=== PATIENT | female | born 1965 | race Hispanic/Latino ===

== ENCOUNTER 2020-04-11 10:34 | Inpatient (IN) | payer OTHER ==
[2020-04-11] MEDS: Acetaminophen 650 MG Suppository PR PRN ×2 (11:30→20:15)
[2020-04-11] MEDS ORDERED: Electrolyte Replacement Protocol 1 EACH IVPB PRN (12:08)
[2020-04-11] MEDS ORDERED: Bisacodyl 10 MG SUPP PR PRN (12:08)
[2020-04-11] MEDS ORDERED: Ondansetron PF 4 MG/2 ML Vial IVP PRN (12:08)
[2020-04-11] MEDS ORDERED: HYDROcodone/Acetaminophen 5/325 mg Tablet PO PRN (12:24)
[2020-04-11] MEDS ORDERED: FLU VACC QS2020-21(6MOS UP)/PF 60 MCG/0.5 ML SYRINGE IM ONE (13:00)
[2020-04-11] MEDS: Sodium Chloride 0.9% 1,000 ML IV SCH ×2 (13:30→23:59)
[2020-04-11] MEDS: Morphine 2 MG/ML VIAL SLOW IVP PRN ×2 (13:31→18:43)
[2020-04-11 14:14] LABS: Calcium, Ionized (arterial) 1.15 mmol/L (1.12-1.30); Carboxyhemoglobin (COHb) 0.3 gm% (0.0-3.0); Hemoglobin (Hb) 10.1 g/dL (12.0-16.0); O2 Tension (PaO2), arterial 62.4 mmHg (80.0-100.0); Potassium - ABG Lab 3.1 mmol/L (3.70-5.30); Puncture Site LRA; RapidComm Collect By EA; pH, Arterial 7.42 (7.35-7.45)
[2020-04-11] MEDS ORDERED: Potassium Chloride 20 MEQ TAB PO SCH (14:30)
[2020-04-11] MEDS: Labetalol HCl 100 MG/20 ML VIAL SLOW IVP PRN (18:41)
[2020-04-11] MEDS: hydrALAZINE 20 MG/ML VIAL SLOW IVP PRN (18:42)
[2020-04-11] MEDS: Mometasone/Formoterol 60 PUFF AER INH SCH (19:00)
[2020-04-11] MEDS: Oseltamivir 75 MG CAP PO SCH (20:15)
[2020-04-11] MEDS: Lorazepam 0.5 MG TAB PO PRN ×2 (20:15→23:59)
[2020-04-11] MEDS: Enoxaparin Sodium 40 MG/0.4 ML SYRINGE SC SCH (20:15)
[2020-04-11] MEDS: Guaifenesin DM 100-10/5 ML UDCUP PO PRN ×2 (20:15→23:59)
[2020-04-11] MEDS ORDERED: Dexamethasone 4 mg/ml Vial SLOW IVP SCH (22:45)
[2020-04-12] MEDS: Morphine 2 MG/ML VIAL SLOW IVP PRN (00:01)
[2020-04-12] MEDS: Guaifenesin DM 100-10/5 ML UDCUP PO PRN ×2 (04:11→20:31)
[2020-04-12] MEDS: Acetaminophen 325 MG TAB PO PRN ×3 (04:12→20:31)
[2020-04-12 05:10] LABS: Anion Gap 14 mmol/L (10-20); BUN (Urea Nitrogen) 19 mg/dL (9.8-20.1); Calc. Creatinine Clearance 109 mL/min (70-130); Calcium 8.6 mg/dL (7.8-10.44); Carbon Dioxide 22 mmol/L (22-29); Chloride 105 mmol/L (98-107); Glucose 136 mg/dL (70-105); Potassium 4.2 mmol/L (3.5-5.1); Sodium 137 mmol/L (136-145)
[2020-04-12 05:20] LABS: #Basophils 0.1 10x3/uL (0.0-0.2); #Monocytes 0.4 10x3/uL (0.0-1.1); #Neutrophils 9.7 10x3/uL (1.5-8.4); %Basophils 0.6 % (0.0-2.0); %Lymphocytes 5.1 % (18.0-47.0); %Monocytes 3.3 % (0.0-10.0); %Neutrophils 88.9 % (40.0-75.0); Hemoglobin 9.6 g/dL (12.0-15.5); Mean Corpuscular HGB CONC 33.8 g/dL (32.0-36.0); Mean Corpuscular Hemoglobin 31.1 pg (27.0-33.0); Mean Corpuscular Volume 91.9 fl (81.6-98.3); Platelet Count 259 10x3/uL (150-450); RBC Distribution Width 17.4 % (11.5-14.5); Red Blood Cell (RBC) Count 3.09 10x6/uL (3.90-5.03); White Blood Cell (WBC) Count 10.9 10x3/uL (3.5-10.5)
[2020-04-12] MEDS: Mometasone/Formoterol 60 PUFF AER INH SCH ×2 (07:34→19:00)
[2020-04-12 08:10] LABS: Actual Bicarbonate (HCO3a) 21.8 mEq/L (22-28); Base Excess (BEa) -2.5 mEq/L (-2.0 to +3.0); CO2 Tension 35.7 mmHg (35.0-45.0); Calcium, Ionized (arterial) 1.17 mmol/L (1.12-1.30); Carboxyhemoglobin (COHb) 0.3 gm% (0.0-3.0); Hemoglobin (Hb) 10.4 g/dL (12.0-16.0); O2 Tension (PaO2), arterial 65.3 mmHg (80.0-100.0); Potassium - ABG Lab 4.1 mmol/L (3.70-5.30); Puncture Site LRA; RapidComm Collect By EA
[2020-04-12] MEDS: Ascorbic Acid 500 mg Chewable Tablet PO SCH (08:38)
[2020-04-12] MEDS: Enoxaparin Sodium 40 MG/0.4 ML SYRINGE SC SCH ×2 (08:38→20:31)
[2020-04-12] MEDS: Pantoprazole 40 MG GRANULES PACKET PO SCH (08:39)
[2020-04-12] MEDS: Lorazepam 0.5 MG TAB PO PRN ×2 (08:39→20:33)
[2020-04-12] MEDS: Dexamethasone 20 MG/5 ML VIAL SLOW IVP SCH (08:39)
[2020-04-12] MEDS: Azithromycin 500 MG in Sodium Chloride 0.9% 250 ML 250 ML IVPB SCH (08:40)
[2020-04-12] MEDS: Cholecalciferol (Vitamin D3) 400 UNITS TAB PO SCH (08:41)
[2020-04-12] MEDS: Zinc Gluconate 50 MG TAB PO SCH (08:44)
[2020-04-12] MEDS: Calcium Carbonate 600 MG TAB PO SCH (11:59)
[2020-04-12] MEDS: Vitamin E 400 UNITS CAP PO SCH (12:01)
[2020-04-12] MEDS: cefTRIAXone\\ROCEPHIN 2 GM in Sodium Chloride 0.9% 100 ML IVPB SCH (12:23)
[2020-04-12] MEDS: Sodium Chloride 0.9% 1,000 ML IV SCH (20:33)
[2020-04-13] MEDS: Guaifenesin DM 100-10/5 ML UDCUP PO PRN ×3 (01:23→19:46)
[2020-04-13 03:34] LABS: #Basophils 0.1 10x3/uL (0.0-0.2); #Monocytes 0.6 10x3/uL (0.0-1.1); #Neutrophils 14.7 10x3/uL (1.5-8.4); %Basophils 0.3 % (0.0-2.0); %Lymphocytes 4.1 % (18.0-47.0); %Monocytes 3.7 % (0.0-10.0); %Neutrophils 89.2 % (40.0-75.0); Hemoglobin 9.6 g/dL (12.0-15.5); Mean Corpuscular HGB CONC 32.3 g/dL (32.0-36.0); Mean Corpuscular Hemoglobin 30.3 pg (27.0-33.0); Mean Corpuscular Volume 93.7 fl (81.6-98.3); Mean Platelet Volume 9.5 fl (7.4-10.4); Platelet Count 287 10x3/uL (150-450); RBC Distribution Width 17.4 % (11.5-14.5); Red Blood Cell (RBC) Count 3.17 10x6/uL (3.90-5.03); White Blood Cell (WBC) Count 16.5 10x3/uL (3.5-10.5)
[2020-04-13 03:39] LABS: Lactic Acid 1.3 mmol/L (0.5-2.2)
[2020-04-13 03:43] LABS: Anion Gap 14 mmol/L (10-20); BUN (Urea Nitrogen) 24 mg/dL (9.8-20.1); Calc. Creatinine Clearance 124 mL/min (70-130); Calcium 8.7 mg/dL (7.8-10.44); Carbon Dioxide 21 mmol/L (22-29); Chloride 109 mmol/L (98-107); Glucose 131 mg/dL (70-105); Potassium 3.7 mmol/L (3.5-5.1); Sodium 140 mmol/L (136-145)
[2020-04-13] MEDS: Lorazepam 0.5 MG TAB PO PRN ×2 (07:30→19:46)
[2020-04-13 07:44] LABS: Actual Bicarbonate (HCO3a) 20.9 mEq/L (22-28); Base Excess (BEa) -3.1 mEq/L (-2.0 to +3.0); CO2 Tension 34.2 mmHg (35.0-45.0); Carboxyhemoglobin (COHb) 0.3 gm% (0.0-3.0); Hemoglobin (Hb) 11.4 g/dL (12.0-16.0); O2 Tension (PaO2), arterial 119.5 mmHg (80.0-100.0); Potassium - ABG Lab 3.6 mmol/L (3.70-5.30); Puncture Site RRA; pH, Arterial 7.41 (7.35-7.45)
[2020-04-13] MEDS: Mometasone/Formoterol 60 PUFF AER INH SCH ×2 (07:56→20:01)
[2020-04-13] MEDS ORDERED: Sodium Chloride 0.9% 100 ML ONE (09:11)
[2020-04-13] MEDS: Cholecalciferol (Vitamin D3) 400 UNITS TAB PO SCH (09:17)
[2020-04-13] MEDS: Zinc Gluconate 50 MG TAB PO SCH (09:17)
[2020-04-13] MEDS: cefTRIAXone\\ROCEPHIN 2 GM in Sodium Chloride 0.9% 100 ML IVPB SCH (09:17)
[2020-04-13] MEDS: Pantoprazole 40 MG GRANULES PACKET PO SCH (09:17)
[2020-04-13] MEDS: Ascorbic Acid 500 mg Chewable Tablet PO SCH (09:17)
[2020-04-13] MEDS: Enoxaparin Sodium 40 MG/0.4 ML SYRINGE SC SCH ×2 (09:17→19:46)
[2020-04-13] MEDS: Vitamin E 400 UNITS CAP PO SCH (09:19)
[2020-04-13] MEDS: Calcium Carbonate 600 MG TAB PO SCH (09:19)
[2020-04-13] MEDS: Dexamethasone 20 MG/5 ML VIAL SLOW IVP SCH (09:20)
[2020-04-13] MEDS: Azithromycin 500 MG in Sodium Chloride 0.9% 250 ML 250 ML IVPB SCH (09:21)
[2020-04-13] MEDS: Morphine 2 MG/ML VIAL SLOW IVP PRN (10:05)
[2020-04-13] MEDS: Sodium Chloride 0.9% 1,000 ML IV SCH (19:52)
[2020-04-14] MEDS: Guaifenesin DM 100-10/5 ML UDCUP PO PRN ×2 (00:56→04:44)
[2020-04-14] MEDS: Lorazepam 0.5 MG TAB PO PRN ×3 (00:56→08:46)
[2020-04-14] MEDS: Morphine 2 MG/ML VIAL SLOW IVP PRN ×2 (00:56→07:59)
[2020-04-14] MEDS: Mometasone/Formoterol 60 PUFF AER INH SCH ×2 (08:00→19:24)
[2020-04-14] MEDS: Azithromycin 500 MG in Sodium Chloride 0.9% 250 ML 250 ML IVPB SCH ×2 (08:05→08:07)
[2020-04-14 08:49] LABS: #Basophils 0.1 10x3/uL (0.0-0.2); #Monocytes 0.6 10x3/uL (0.0-1.1); %Basophils 0.3 % (0.0-2.0); %Monocytes 3.8 % (0.0-10.0); %Neutrophils 86.5 % (40.0-75.0); Hemoglobin 10.1 g/dL (12.0-15.5); Mean Corpuscular HGB CONC 33.1 g/dL (32.0-36.0); Mean Corpuscular Volume 93.6 fl (81.6-98.3); Mean Platelet Volume 9.8 fl (7.4-10.4); Platelet Count 315 10x3/uL (150-450); RBC Distribution Width 17.4 % (11.5-14.5); Red Blood Cell (RBC) Count 3.26 10x6/uL (3.90-5.03); White Blood Cell (WBC) Count 15.1 10x3/uL (3.5-10.5)
[2020-04-14 09:03] LABS: Anion Gap 19 mmol/L (10-20); BUN (Urea Nitrogen) 21 mg/dL (9.8-20.1); Calc. Creatinine Clearance 140 mL/min (70-130); Calcium 9.2 mg/dL (7.8-10.44); Carbon Dioxide 21 mmol/L (22-29); Chloride 107 mmol/L (98-107); Glucose 89 mg/dL (70-105); Potassium 3.5 mmol/L (3.5-5.1); Sodium 143 mmol/L (136-145)
[2020-04-14] MEDS: Enoxaparin Sodium 40 MG/0.4 ML SYRINGE SC SCH ×2 (09:05→21:11)
[2020-04-14] MEDS: Dexamethasone 20 MG/5 ML VIAL SLOW IVP SCH (09:05)
[2020-04-14] MEDS: cefTRIAXone\\ROCEPHIN 2 GM in Sodium Chloride 0.9% 100 ML IVPB SCH (09:06)
[2020-04-14 09:39] LABS: Actual Bicarbonate (HCO3a) 22.6 mEq/L (22-28); Base Excess (BEa) -1.1 mEq/L (-2.0 to +3.0); CO2 Tension 33.8 mmHg (35.0-45.0); Calcium, Ionized (arterial) 1.16 mmol/L (1.12-1.30); Carboxyhemoglobin (COHb) 0.3 gm% (0.0-3.0); Hemoglobin (Hb) 10.3 g/dL (12.0-16.0); O2 Tension (PaO2), arterial 67.5 mmHg (80.0-100.0); Potassium - ABG Lab 3.3 mmol/L (3.70-5.30); Puncture Site RRA; pH, Arterial 7.44 (7.35-7.45)
[2020-04-14] MEDS ORDERED: Dexmedetomidine In 0.9 % NaCl 400 MCG in Premix Bag 1 BAG IVPB SCH (09:45)
[2020-04-14] MEDS ORDERED: Propofol 1,000 MG/100 ML VIAL IV PRN (10:23)
[2020-04-14] MEDS ORDERED: Morphine 2 MG/ML VIAL SLOW IVP PRN (10:30)
[2020-04-14] MEDS ORDERED: Lorazepam 2 MG/ML VIAL SLOW IVP PRN (10:30)
[2020-04-14] MEDS ORDERED: Propofol BOLUS 1,000 MG/100 ML VIAL IV PRN (10:30)
[2020-04-14] MEDS ORDERED: Fentanyl BOLUS 250 ML IVPB PRN (10:30)
[2020-04-14] MEDS ORDERED: DISCONTINUE PREVIOUS NARCOTIC PAIN MEDICATIONS AND BENZODIAZEPINES FS SCH (10:30)
[2020-04-14] MEDS ORDERED: Ventilator Sedation Protocol 1 EACH FS PRN (10:30)
[2020-04-14] MEDS: Propofol 1,000 MG/100 ML VIAL IV PRN ×4 (10:57→21:10)
[2020-04-14] MEDS ORDERED: Potassium Chloride 20 MEQ TAB PO SCH (11:30)
[2020-04-14] MEDS: Fentanyl CADD 100 ML IV SCH (11:43)
[2020-04-14] MEDS: Sodium Chloride 0.9% 1,000 ML IV SCH ×3 (11:58→21:11)
[2020-04-14] MEDS: Pantoprazole 40 MG GRANULES PACKET PO SCH ×2 (12:14→13:50)
[2020-04-14] MEDS: Calcium Carbonate 600 MG TAB PO SCH (12:14)
[2020-04-14] MEDS: Cholecalciferol (Vitamin D3) 400 UNITS TAB PO SCH ×2 (12:14→13:48)
[2020-04-14] MEDS: Ascorbic Acid 500 mg Chewable Tablet PO SCH ×2 (12:14→13:43)
[2020-04-14] MEDS: Zinc Gluconate 50 MG TAB PO SCH ×2 (12:15→13:52)
[2020-04-14 12:27] LABS: Actual Bicarbonate (HCO3a) 23.2 mEq/L (22-28); Base Excess (BEa) -2.1 mEq/L (-2.0 to +3.0); CO2 Tension 41.9 mmHg (35.0-45.0); Calcium, Ionized (arterial) 1.15 mmol/L (1.12-1.30); Carboxyhemoglobin (COHb) 0.3 gm% (0.0-3.0); Hemoglobin (Hb) 10.3 g/dL (12.0-16.0); O2 Tension (PaO2), arterial 108.9 mmHg (80.0-100.0); Potassium - ABG Lab 3.5 mmol/L (3.70-5.30); Puncture Site RRA; pH, Arterial 7.36 (7.35-7.45)
[2020-04-14] MEDS ORDERED: Vecuronium 10 MG VIAL IV SCH ×2 (13:30→13:45)
[2020-04-14] MEDS ORDERED: Midazolam HCl 5 mg/5 ml Vial SLOW IVP SCH (13:45)
[2020-04-14] MEDS: Vecuronium Bromide 50 MG in Sodium Chloride 0.9% 250 ML 250 ML IV SCH ×2 (13:54→20:10)
[2020-04-15 04:47] LABS: Anion Gap 16 mmol/L (10-20); BUN (Urea Nitrogen) 24 mg/dL (9.8-20.1); Calc. Creatinine Clearance 120 mL/min (70-130); Carbon Dioxide 18 mmol/L (22-29); Chloride 111 mmol/L (98-107); Glucose 96 mg/dL (70-105); Potassium 4.4 mmol/L (3.5-5.1); Sodium 141 mmol/L (136-145)
[2020-04-15 04:59] LABS: #Basophils 0.1 10x3/uL (0.0-0.2); #Monocytes 0.4 10x3/uL (0.0-1.1); #Neutrophils 10.2 10x3/uL (1.5-8.4); %Basophils 0.4 % (0.0-2.0); %Eosinophils 0.1 % (0.0-6.0); %Lymphocytes 8.6 % (18.0-47.0); %Monocytes 3.5 % (0.0-10.0); %Neutrophils 84.3 % (40.0-75.0); Hemoglobin 9.1 g/dL (12.0-15.5); Mean Corpuscular HGB CONC 31.7 g/dL (32.0-36.0); Mean Corpuscular Hemoglobin 31.1 pg (27.0-33.0); Mean Platelet Volume 10.2 fl (7.4-10.4); Platelet Count 219 10x3/uL (150-450); Red Blood Cell (RBC) Count 2.93 10x6/uL (3.90-5.03); White Blood Cell (WBC) Count 12.1 10x3/uL (3.5-10.5)
[2020-04-15] MEDS: Propofol 1,000 MG/100 ML VIAL IV PRN ×3 (06:14→21:50)
[2020-04-15] MEDS: Labetalol HCl 100 MG/20 ML VIAL SLOW IVP PRN (07:30)
[2020-04-15] MEDS: Vecuronium Bromide 50 MG in Sodium Chloride 0.9% 250 ML 250 ML IV SCH ×2 (09:13→18:59)
[2020-04-15 09:26] LABS: Actual Bicarbonate (HCO3a) 21.6 mEq/L (22-28); Base Excess (BEa) -6.4 mEq/L (-2.0 to +3.0); Calcium, Ionized (arterial) 1.21 mmol/L (1.12-1.30); Carboxyhemoglobin (COHb) 0.3 gm% (0.0-3.0); Hemoglobin (Hb) 10.3 g/dL (12.0-16.0); O2 Tension (PaO2), arterial 90.2 mmHg (80.0-100.0); Potassium - ABG Lab 4.1 mmol/L (3.70-5.30); Puncture Site LBA; pH, Arterial 7.21 (7.35-7.45)
[2020-04-15] MEDS: Pantoprazole 40 MG GRANULES PACKET PO SCH (09:44)
[2020-04-15] MEDS: Cholecalciferol (Vitamin D3) 400 UNITS TAB PO SCH (09:44)
[2020-04-15] MEDS: Calcium Carbonate 600 MG TAB PO SCH (09:44)
[2020-04-15] MEDS: Ascorbic Acid 500 mg Chewable Tablet PO SCH (09:44)
[2020-04-15] MEDS: Zinc Gluconate 50 MG TAB PO SCH (09:44)
[2020-04-15] MEDS: Enoxaparin Sodium 40 MG/0.4 ML SYRINGE SC SCH (09:45)
[2020-04-15] MEDS: Vitamin E 400 UNITS CAP PO SCH (09:45)
[2020-04-15] MEDS: Dexamethasone 20 MG/5 ML VIAL SLOW IVP SCH ×2 (09:45→20:50)
[2020-04-15] MEDS: cefTRIAXone\\ROCEPHIN 2 GM in Sodium Chloride 0.9% 100 ML IVPB SCH (09:45)
[2020-04-15] MEDS: Mometasone/Formoterol 60 PUFF AER INH SCH ×2 (09:48→20:00)
[2020-04-15] MEDS ORDERED: Enoxaparin Sodium 40 MG/0.4 ML SYRINGE SC SCH (10:30)
[2020-04-15] MEDS ORDERED: Sodium Bicarbonate 2.5 MEQ/5 ML VIAL ONE (10:37)
[2020-04-15] MEDS ORDERED: Lidocaine 1% PF 5 ML VIAL ONE (10:38)
[2020-04-15] MEDS ORDERED: Propofol 1,000 MG/100 ML VIAL IV ONE (11:19)
[2020-04-15] MEDS ORDERED: Fentanyl CADD 100 ML ONE (11:19)
[2020-04-15] MEDS: Sodium Chloride 0.9% 1,000 ML IV SCH ×2 (16:00→19:55)
[2020-04-15] MEDS: Enoxaparin Sodium 100 MG/ML SYRINGE SC SCH (20:51)
[2020-04-16] MEDS: Sodium Chloride 0.9% 1,000 ML IV SCH ×3 (01:23→22:20)
[2020-04-16] MEDS: Propofol 1,000 MG/100 ML VIAL IV PRN ×5 (03:18→22:20)
[2020-04-16 04:16] LABS: Hemoglobin 8.5 g/dL (12.0-15.5); Mean Corpuscular HGB CONC 31.4 g/dL (32.0-36.0); Mean Corpuscular Hemoglobin 30.5 pg (27.0-33.0); Mean Corpuscular Volume 97.1 fl (81.6-98.3); Platelet Count 208 10x3/uL (150-450); RBC Distribution Width 17.9 % (11.5-14.5); Red Blood Cell (RBC) Count 2.79 10x6/uL (3.90-5.03)
[2020-04-16 04:28] LABS: Anion Gap 10 mmol/L (10-20); BUN (Urea Nitrogen) 17 mg/dL (9.8-20.1); Calc. Creatinine Clearance 146 mL/min (70-130); Calcium 8.3 mg/dL (7.8-10.44); Carbon Dioxide 26 mmol/L (22-29); Chloride 109 mmol/L (98-107); Glucose 129 mg/dL (70-105); Potassium 4.4 mmol/L (3.5-5.1); Sodium 141 mmol/L (136-145)
[2020-04-16 06:37] LABS: Band 8 % (5-11); Lymphocytes 2 % (21-51); Monocytes 7 % (0-10); Myelocyte 3 % (0-0); Neutrophil 80 % (42-75); Nucleated RBC 1 % (0)
[2020-04-16 06:40] LABS: Anisocytosis SLIGHT = 6-15 cells (100X) (0-5/hpf); Elliptocytes SLIGHT = 2-5 cells (100X) (0-1/hpf); Microcytosis SLIGHT = 6-15 cells (100X) (0-5/hpf); Ovalocytes SLIGHT = 2-5 cells (100X) (0-1/hpf); Poikilocytosis SLIGHT = 6-15 cells (100X) (0-5/hpf)
[2020-04-16 06:41] LABS: Platelet Morphology Comment Appears Adequate
[2020-04-16 06:42] LABS: Large Platelets MODERATE
[2020-04-16 06:43] LABS: MDiff Complete? YES; Manual Diff?? YES
[2020-04-16] MEDS: Mometasone/Formoterol 60 PUFF AER INH SCH ×2 (07:37→20:04)
[2020-04-16] MEDS: Vitamin E 400 UNITS CAP PO SCH (07:56)
[2020-04-16] MEDS: Azithromycin 500 MG in Sodium Chloride 0.9% 250 ML 250 ML IVPB SCH (07:56)
[2020-04-16] MEDS: Cholecalciferol (Vitamin D3) 400 UNITS TAB PO SCH (07:57)
[2020-04-16] MEDS: cefTRIAXone\\ROCEPHIN 2 GM in Sodium Chloride 0.9% 100 ML IVPB SCH (07:58)
[2020-04-16] MEDS: Dexamethasone 20 MG/5 ML VIAL SLOW IVP SCH ×2 (07:58→20:31)
[2020-04-16] MEDS: Calcium Carbonate 600 MG TAB PO SCH ×2 (07:59→08:00)
[2020-04-16] MEDS: Ascorbic Acid 500 mg Chewable Tablet PO SCH (07:59)
[2020-04-16] MEDS: Pantoprazole 40 MG GRANULES PACKET PO SCH (08:00)
[2020-04-16] MEDS: Enoxaparin Sodium 100 MG/ML SYRINGE SC SCH ×2 (08:00→20:31)
[2020-04-16] MEDS: Zinc Gluconate 50 MG TAB PO SCH (08:01)
[2020-04-16] MEDS ORDERED: Metoprolol Tartrate 25 MG TAB PO SCH (11:30)
[2020-04-16] MEDS: Vecuronium Bromide 50 MG in Sodium Chloride 0.9% 250 ML 250 ML IV SCH (14:30)
[2020-04-16 16:03] LABS: Actual Bicarbonate (HCO3a) 26.4 mEq/L (22-28); Base Excess (BEa) 0.1 mEq/L (-2.0 to +3.0); CO2 Tension 51.6 mmHg (35.0-45.0); Calcium, Ionized (arterial) 1.22 mmol/L (1.12-1.30); Carboxyhemoglobin (COHb) 0.3 gm% (0.0-3.0); Hemoglobin (Hb) 9.4 g/dL (12.0-16.0); O2 Tension (PaO2), arterial 195.8 mmHg (80.0-100.0); Potassium - ABG Lab 4.3 mmol/L (3.70-5.30); Puncture Site RRA; pH, Arterial 7.33 (7.35-7.45)
[2020-04-16] MEDS: Metoprolol Tartrate 25 MG TAB PO SCH (20:31)
[2020-04-16] MEDS: Fentanyl CADD 100 ML IV SCH (23:25)
[2020-04-17] MEDS: Propofol 1,000 MG/100 ML VIAL IV PRN ×6 (01:32→21:43)
[2020-04-17 04:32] LABS: Hemoglobin 9.7 g/dL (12.0-15.5); Mean Corpuscular HGB CONC 32.6 g/dL (32.0-36.0); Mean Corpuscular Hemoglobin 31.3 pg (27.0-33.0); Mean Corpuscular Volume 96.1 fl (81.6-98.3); Mean Platelet Volume 10.4 fl (7.4-10.4); Platelet Count 210 10x3/uL (150-450); RBC Distribution Width 17.4 % (11.5-14.5); White Blood Cell (WBC) Count 6.4 10x3/uL (3.5-10.5)
[2020-04-17 04:37] LABS: ALT (SGPT) 16 U/L (8-55); AST (SGOT) 21 U/L (5-34); Albumin 2.5 g/dL (3.5-5.0); Alkaline Phosphatase 101 U/L (40-110); Anion Gap 10 mmol/L (10-20); BUN (Urea Nitrogen) 21 mg/dL (9.8-20.1); Bilirubin, Total 0.5 mg/dL (0.2-1.2); Calc. Creatinine Clearance 156 mL/min (70-130); Calcium 8.3 mg/dL (7.8-10.44); Carbon Dioxide 28 mmol/L (22-29); Chloride 109 mmol/L (98-107); Globulin 2.7 g/dL (2.4-3.5); Glucose 125 mg/dL (70-105); Magnesium 2.1 mg/dL (1.6-2.6); Potassium 4.2 mmol/L (3.5-5.1); Protein, Total 5.2 g/dL (6.0-8.3); Sodium 143 mmol/L (136-145)
[2020-04-17 04:51] LABS: Band 13 % (5-11); Lymphocytes 3 % (21-51); Metamyelocyte 3 % (0-0); Monocytes 5 % (0-10); Myelocyte 3 % (0-0); Neutrophil 71 % (42-75); Reactive Lymphocytes 2 % (0-10)
[2020-04-17 04:52] LABS: Anisocytosis SLIGHT = 6-15 cells (100X) (0-5/hpf); Microcytosis SLIGHT = 6-15 cells (100X) (0-5/hpf)
[2020-04-17 04:53] LABS: Burr Cells SLIGHT = 2-5 cells (100X) (0-1/hpf); Elliptocytes SLIGHT = 2-5 cells (100X) (0-1/hpf); Large Platelets SLIGHT; Ovalocytes SLIGHT = 2-5 cells (100X) (0-1/hpf); Platelet Morphology Comment Appears Adequate; Poikilocytosis SLIGHT = 6-15 cells (100X) (0-5/hpf)
[2020-04-17 04:54] LABS: Macrocytosis SLIGHT = 6-15 cells (100X) (0-5/hpf); Polychromasia SLIGHT = 2-3 cells (100X) (0-2/hpf)
[2020-04-17 04:55] LABS: MDiff Complete? YES; Manual Diff?? YES
[2020-04-17] MEDS: Vecuronium Bromide 50 MG in Sodium Chloride 0.9% 250 ML 250 ML IV SCH ×2 (06:41→20:50)
[2020-04-17] MEDS: Mometasone/Formoterol 60 PUFF AER INH SCH ×2 (07:01→18:21)
[2020-04-17] MEDS ORDERED: Enoxaparin Sodium 100 MG/ML SYRINGE ONE (08:12)
[2020-04-17] MEDS: Vitamin E 400 UNITS CAP PO SCH (08:49)
[2020-04-17] MEDS: Ascorbic Acid 500 mg Chewable Tablet PO SCH (08:50)
[2020-04-17] MEDS: Cholecalciferol (Vitamin D3) 400 UNITS TAB PO SCH (08:50)
[2020-04-17] MEDS: Metoprolol Tartrate 25 MG TAB PO SCH ×2 (08:50→20:26)
[2020-04-17] MEDS: cefTRIAXone\\ROCEPHIN 2 GM in Sodium Chloride 0.9% 100 ML IVPB SCH (08:51)
[2020-04-17] MEDS: Zinc Gluconate 50 MG TAB PO SCH (08:51)
[2020-04-17] MEDS: Enoxaparin Sodium 100 MG/ML SYRINGE SC SCH ×2 (08:53→20:26)
[2020-04-17] MEDS: Dexamethasone 20 MG/5 ML VIAL SLOW IVP SCH ×2 (08:54→20:25)
[2020-04-17] MEDS: Azithromycin 500 MG in Sodium Chloride 0.9% 250 ML 250 ML IVPB SCH (08:55)
[2020-04-17] MEDS: Pantoprazole 40 MG GRANULES PACKET PO SCH (08:59)
[2020-04-17] MEDS: Calcium Carbonate 600 MG TAB PO SCH (08:59)
[2020-04-17] MEDS: Oseltamivir 75 MG CAP PO SCH (10:43)
[2020-04-17] MEDS: Sodium Chloride 0.9% 1,000 ML IV SCH ×2 (11:28→18:21)
[2020-04-18] MEDS ORDERED: Fentanyl CADD 100 ML ONE (01:33)
[2020-04-18] MEDS: Fentanyl CADD 100 ML IV SCH (01:35)
[2020-04-18] MEDS: Propofol 1,000 MG/100 ML VIAL IV PRN ×6 (01:38→22:15)
[2020-04-18 05:04] LABS: Hemoglobin 8.5 g/dL (12.0-15.5); Mean Corpuscular HGB CONC 32.3 g/dL (32.0-36.0); Mean Corpuscular Hemoglobin 30.9 pg (27.0-33.0); Mean Corpuscular Volume 95.6 fl (81.6-98.3); Mean Platelet Volume 9.8 fl (7.4-10.4); Platelet Count 281 10x3/uL (150-450); RBC Distribution Width 17.4 % (11.5-14.5); Red Blood Cell (RBC) Count 2.75 10x6/uL (3.90-5.03); White Blood Cell (WBC) Count 8.2 10x3/uL (3.5-10.5)
[2020-04-18 05:31] LABS: MDiff Complete? YES
[2020-04-18 05:35] LABS: Band 10 % (5-11); Lymphocytes 1 % (21-51); Metamyelocyte 3 % (0-0); Monocytes 5 % (0-10); Neutrophil 81 % (42-75)
[2020-04-18 05:36] LABS: Anisocytosis MODERATE=16-30 cells (100X) (0-5/hpf); Poikilocytosis MODERATE=16-30 cells (100X) (0-5/hpf)
[2020-04-18 05:37] LABS: Platelet Morphology Comment Appears Adequate
[2020-04-18] MEDS: Sodium Chloride 0.9% 1,000 ML IV SCH ×3 (06:07→22:15)
[2020-04-18] MEDS: Mometasone/Formoterol 60 PUFF AER INH SCH ×2 (07:37→18:45)
[2020-04-18] MEDS: Dexamethasone 20 MG/5 ML VIAL SLOW IVP SCH ×2 (08:25→21:54)
[2020-04-18] MEDS: Pantoprazole 40 MG GRANULES PACKET PO SCH (08:26)
[2020-04-18] MEDS: Metoprolol Tartrate 25 MG TAB PO SCH ×2 (08:26→21:55)
[2020-04-18] MEDS: Enoxaparin Sodium 100 MG/ML SYRINGE SC SCH ×2 (08:26→21:54)
[2020-04-18] MEDS: Cholecalciferol (Vitamin D3) 400 UNITS TAB PO SCH (08:26)
[2020-04-18] MEDS: Ascorbic Acid 500 mg Chewable Tablet PO SCH (08:26)
[2020-04-18] MEDS: Calcium Carbonate 600 MG TAB PO SCH (08:26)
[2020-04-18] MEDS: Vitamin E 400 UNITS CAP PO SCH (08:26)
[2020-04-18] MEDS: Zinc Gluconate 50 MG TAB PO SCH (08:26)
[2020-04-18] MEDS: cefTRIAXone\\ROCEPHIN 2 GM in Sodium Chloride 0.9% 100 ML IVPB SCH (08:28)
[2020-04-18] MEDS: Azithromycin 500 MG in Sodium Chloride 0.9% 250 ML 250 ML IVPB SCH (08:28)
[2020-04-18] MEDS ORDERED: Magnesium 2 GM/50 ML 2 GM in Premix Bag 1 BAG IVPB SCH (09:45)
[2020-04-18] MEDS: Vecuronium Bromide 50 MG in Sodium Chloride 0.9% 250 ML 250 ML IV SCH (11:50)
[2020-04-18] MEDS ORDERED: Ventilator Sedation Protocol 1 EACH FS SCH (12:45)
[2020-04-19] MEDS: Fentanyl CADD 100 ML IV SCH (00:30)
[2020-04-19] MEDS: Vecuronium Bromide 50 MG in Sodium Chloride 0.9% 250 ML 250 ML IV SCH (00:30)
[2020-04-19] MEDS: Propofol 1,000 MG/100 ML VIAL IV PRN ×2 (03:45→20:00)
[2020-04-19 05:01] LABS: ALT (SGPT) 28 U/L (8-55); AST (SGOT) 49 U/L (5-34); Albumin 2.7 g/dL (3.5-5.0); Alkaline Phosphatase 129 U/L (40-110); Anion Gap 10 mmol/L (10-20); BUN (Urea Nitrogen) 22 mg/dL (9.8-20.1); Bilirubin, Total 0.6 mg/dL (0.2-1.2); Calc. Creatinine Clearance 173 mL/min (70-130); Calcium 8.2 mg/dL (7.8-10.44); Carbon Dioxide 29 mmol/L (22-29); Chloride 108 mmol/L (98-107); Glucose 126 mg/dL (70-105); Magnesium 2.1 mg/dL (1.6-2.6); Potassium 3.8 mmol/L (3.5-5.1); Protein, Total 5.7 g/dL (6.0-8.3); Sodium 143 mmol/L (136-145)
[2020-04-19 05:12] LABS: #Monocytes 0.5 10x3/uL (0.0-1.1); #Neutrophils 7.7 10x3/uL (1.5-8.4); %Basophils 0.4 % (0.0-2.0); %Eosinophils 0.2 % (0.0-6.0); %Lymphocytes 4.2 % (18.0-47.0); %Monocytes 4.8 % (0.0-10.0); %Neutrophils 82.5 % (40.0-75.0); Hemoglobin 8.2 g/dL (12.0-15.5); Mean Corpuscular HGB CONC 31.9 g/dL (32.0-36.0); Mean Corpuscular Hemoglobin 30.6 pg (27.0-33.0); Mean Corpuscular Volume 95.9 fl (81.6-98.3); Mean Platelet Volume 10.5 fl (7.4-10.4); Platelet Count 298 10x3/uL (150-450); RBC Distribution Width 17.4 % (11.5-14.5); Red Blood Cell (RBC) Count 2.68 10x6/uL (3.90-5.03); White Blood Cell (WBC) Count 9.3 10x3/uL (3.5-10.5)
[2020-04-19 07:59] LABS: Band 7 % (5-11); Lymphocytes 4 % (21-51); Metamyelocyte 3 % (0-0); Monocytes 3 % (0-10); Nucleated RBC 1 % (0); Promyelocytes 6 % (0-0)
[2020-04-19 08:00] LABS: Basophilic Stippling SLIGHT = 1-2 cells (100X) (None Seen); Elliptocytes SLIGHT = 2-5 cells (100X) (0-1/hpf); Platelet Morphology Comment Appears Adequate; Schistocytes SLIGHT = 2-5 cells (100X) (0-1/hpf)
[2020-04-19] MEDS: Mometasone/Formoterol 60 PUFF AER INH SCH (08:20)
[2020-04-19] MEDS: Dexamethasone 20 MG/5 ML VIAL SLOW IVP SCH ×2 (09:00→21:00)
[2020-04-19] MEDS: Enoxaparin Sodium 100 MG/ML SYRINGE SC SCH ×2 (09:03→21:00)
[2020-04-19] MEDS: Pantoprazole 40 MG GRANULES PACKET PO SCH (09:03)
[2020-04-19] MEDS: Ascorbic Acid 500 mg Chewable Tablet PO SCH (09:03)
[2020-04-19] MEDS: Zinc Gluconate 50 MG TAB PO SCH (09:03)
[2020-04-19] MEDS: Cholecalciferol (Vitamin D3) 400 UNITS TAB PO SCH (09:04)
[2020-04-19] MEDS: Metoprolol Tartrate 25 MG TAB PO SCH ×2 (09:04→21:00)
[2020-04-19] MEDS: Azithromycin 500 MG in Sodium Chloride 0.9% 250 ML 250 ML IVPB SCH (09:05)
[2020-04-19] MEDS: cefTRIAXone\\ROCEPHIN 2 GM in Sodium Chloride 0.9% 100 ML IVPB SCH (09:08)
[2020-04-19] MEDS: Calcium Carbonate 600 MG TAB PO SCH (09:08)
[2020-04-19] MEDS: Vitamin E 400 UNITS CAP PO SCH (17:19)
[2020-04-19] MEDS: Budesonide 0.5 MG/2 ML NEB NEB SCH (20:23)
[2020-04-19] MEDS: Sodium Chloride 0.9% 1,000 ML IV SCH (21:00)
[2020-04-20] MEDS: Fentanyl CADD 100 ML IV SCH ×2 (00:45→17:19)
[2020-04-20] MEDS: Vecuronium Bromide 50 MG in Sodium Chloride 0.9% 250 ML 250 ML IV SCH ×2 (00:50→12:34)
[2020-04-20] MEDS: Propofol 1,000 MG/100 ML VIAL IV PRN ×4 (00:50→20:45)
[2020-04-20] MEDS: Budesonide 0.5 MG/2 ML NEB NEB SCH ×2 (06:55→20:21)
[2020-04-20 07:17] LABS: Hemoglobin 10.2 g/dL (12.0-15.5); Mean Corpuscular HGB CONC 32.3 g/dL (32.0-36.0); Mean Platelet Volume 11.1 fl (7.4-10.4); RBC Distribution Width 17.6 % (11.5-14.5); Red Blood Cell (RBC) Count 3.29 10x6/uL (3.90-5.03); White Blood Cell (WBC) Count 9.9 10x3/uL (3.5-10.5)
[2020-04-20] MEDS: cefTRIAXone\\ROCEPHIN 2 GM in Sodium Chloride 0.9% 100 ML IVPB SCH (07:57)
[2020-04-20] MEDS: Azithromycin 500 MG in Sodium Chloride 0.9% 250 ML 250 ML IVPB SCH (07:57)
[2020-04-20] MEDS: Sodium Chloride 0.9% 1,000 ML IV SCH ×3 (07:57→17:46)
[2020-04-20] MEDS: Zinc Gluconate 50 MG TAB PO SCH (07:59)
[2020-04-20] MEDS: Metoprolol Tartrate 25 MG TAB PO SCH ×2 (07:59→20:45)
[2020-04-20] MEDS: Enoxaparin Sodium 100 MG/ML SYRINGE SC SCH ×2 (07:59→20:45)
[2020-04-20] MEDS: Dexamethasone 20 MG/5 ML VIAL SLOW IVP SCH ×2 (07:59→20:45)
[2020-04-20] MEDS: Calcium Carbonate 600 MG TAB PO SCH (07:59)
[2020-04-20] MEDS: Cholecalciferol (Vitamin D3) 400 UNITS TAB PO SCH (07:59)
[2020-04-20] MEDS: Ascorbic Acid 500 mg Chewable Tablet PO SCH (07:59)
[2020-04-20] MEDS: Vitamin E 400 UNITS CAP PO SCH (08:00)
[2020-04-20] MEDS: Pantoprazole 40 MG GRANULES PACKET PO SCH (08:00)
[2020-04-20 08:26] LABS: MDiff Complete? YES
[2020-04-20 08:51] LABS: Platelet Count 252 10x3/uL (150-450)
[2020-04-20 08:52] LABS: Band 8 % (5-11); Lymphocytes 10 % (21-51); Monocytes 4 % (0-10); Neutrophil 78 % (42-75)
[2020-04-20 08:53] LABS: Anisocytosis SLIGHT = 6-15 cells (100X) (0-5/hpf); Nucleated RBC 2 % (0); Platelet Morphology Comment Appears Adequate
[2020-04-21] MEDS: Propofol 1,000 MG/100 ML VIAL IV PRN ×2 (01:20→05:30)
[2020-04-21] MEDS: Vecuronium Bromide 50 MG in Sodium Chloride 0.9% 250 ML 250 ML IV SCH ×2 (01:20→11:21)
[2020-04-21 05:12] LABS: #Monocytes 0.4 10x3/uL (0.0-1.1); #Neutrophils 7.3 10x3/uL (1.5-8.4); %Basophils 0.2 % (0.0-2.0); %Lymphocytes 5.7 % (18.0-47.0); %Monocytes 4.4 % (0.0-10.0); %Neutrophils 84.7 % (40.0-75.0); Hemoglobin 7.5 g/dL (12.0-15.5); Mean Corpuscular HGB CONC 32.8 g/dL (32.0-36.0); Mean Corpuscular Hemoglobin 31.5 pg (27.0-33.0); Mean Corpuscular Volume 96.2 fl (81.6-98.3); Mean Platelet Volume 10.1 fl (7.4-10.4); Platelet Count 295 10x3/uL (150-450); RBC Distribution Width 17.3 % (11.5-14.5); Red Blood Cell (RBC) Count 2.38 10x6/uL (3.90-5.03); White Blood Cell (WBC) Count 8.6 10x3/uL (3.5-10.5)
[2020-04-21 05:22] LABS: ALT (SGPT) 26 U/L (8-55); AST (SGOT) 32 U/L (5-34); Albumin 2.4 g/dL (3.5-5.0); Alkaline Phosphatase 126 U/L (40-110); Anion Gap 13 mmol/L (10-20); BUN (Urea Nitrogen) 20 mg/dL (9.8-20.1); Bilirubin, Total 0.4 mg/dL (0.2-1.2); Calc. Creatinine Clearance 187 mL/min (70-130); Calcium 8.3 mg/dL (7.8-10.44); Carbon Dioxide 26 mmol/L (22-29); Chloride 107 mmol/L (98-107); Globulin 2.9 g/dL (2.4-3.5); Glucose 124 mg/dL (70-105); Magnesium 1.9 mg/dL (1.6-2.6); Potassium 4.1 mmol/L (3.5-5.1); Protein, Total 5.3 g/dL (6.0-8.3); Sodium 142 mmol/L (136-145)
[2020-04-21] MEDS ORDERED: Propofol 1,000 MG/100 ML VIAL IV ONE (05:29)
[2020-04-21] MEDS: Sodium Chloride 0.9% 1,000 ML IV SCH ×2 (06:00→13:16)
[2020-04-21] MEDS: Budesonide 0.5 MG/2 ML NEB NEB SCH ×2 (07:29→19:24)
[2020-04-21] MEDS: Dexamethasone 20 MG/5 ML VIAL SLOW IVP SCH ×2 (08:14→21:43)
[2020-04-21] MEDS: Ascorbic Acid 500 mg Chewable Tablet PO SCH (08:15)
[2020-04-21] MEDS: Zinc Gluconate 50 MG TAB PO SCH (08:15)
[2020-04-21] MEDS: Metoprolol Tartrate 25 MG TAB PO SCH ×2 (08:15→21:43)
[2020-04-21] MEDS: Pantoprazole 40 MG GRANULES PACKET PO SCH (08:15)
[2020-04-21] MEDS: Enoxaparin Sodium 100 MG/ML SYRINGE SC SCH ×2 (08:15→21:43)
[2020-04-21] MEDS: Cholecalciferol (Vitamin D3) 400 UNITS TAB PO SCH (08:15)
[2020-04-21] MEDS: Vitamin E 400 UNITS CAP PO SCH (08:18)
[2020-04-21] MEDS: Calcium Carbonate 600 MG TAB PO SCH (08:18)
[2020-04-21] MEDS: cefTRIAXone\\ROCEPHIN 2 GM in Sodium Chloride 0.9% 100 ML IVPB SCH (08:19)
[2020-04-21] MEDS: Azithromycin 500 MG in Sodium Chloride 0.9% 250 ML 250 ML IVPB SCH (08:19)
[2020-04-21] MEDS ORDERED: Furosemide 40 MG/4 ML VIAL SLOW IVP SCH (11:00)
[2020-04-21] MEDS: Fentanyl CADD 100 ML IV SCH ×2 (13:47→23:25)
[2020-04-21] MEDS: Furosemide 40 MG/4 ML VIAL SLOW IVP SCH (21:43)
[2020-04-22] MEDS: Sodium Chloride 0.9% 1,000 ML IV SCH ×3 (00:31→17:49)
[2020-04-22 05:01] LABS: #Monocytes 0.5 10x3/uL (0.0-1.1); #Neutrophils 8.1 10x3/uL (1.5-8.4); %Basophils 0.3 % (0.0-2.0); %Eosinophils 0.1 % (0.0-6.0); %Lymphocytes 3.8 % (18.0-47.0); %Monocytes 5.1 % (0.0-10.0); %Neutrophils 85.7 % (40.0-75.0); Hemoglobin 8.5 g/dL (12.0-15.5); Mean Corpuscular HGB CONC 32.3 g/dL (32.0-36.0); Mean Corpuscular Hemoglobin 30.4 pg (27.0-33.0); Mean Corpuscular Volume 93.9 fl (81.6-98.3); Mean Platelet Volume 10.2 fl (7.4-10.4); Platelet Count 328 10x3/uL (150-450); White Blood Cell (WBC) Count 9.5 10x3/uL (3.5-10.5)
[2020-04-22 05:02] LABS: Anion Gap 10 mmol/L (10-20); BUN (Urea Nitrogen) 23 mg/dL (9.8-20.1); Calc. Creatinine Clearance 189 mL/min (70-130); Calcium 8.4 mg/dL (7.8-10.44); Carbon Dioxide 35 mmol/L (22-29); Chloride 100 mmol/L (98-107); Glucose 119 mg/dL (70-105); Magnesium 1.7 mg/dL (1.6-2.6); Potassium 3.5 mmol/L (3.5-5.1); Sodium 141 mmol/L (136-145)
[2020-04-22] MEDS: Budesonide 0.5 MG/2 ML NEB NEB SCH ×2 (07:10→19:10)
[2020-04-22] MEDS: Albuterol Sulfate 2.5 mg/3 ml Neb NEB PRN ×2 (07:10→19:10)
[2020-04-22] MEDS: Azithromycin 500 MG in Sodium Chloride 0.9% 250 ML 250 ML IVPB SCH (07:52)
[2020-04-22] MEDS: Enoxaparin Sodium 100 MG/ML SYRINGE SC SCH ×2 (07:54→21:27)
[2020-04-22] MEDS: Furosemide 40 MG/4 ML VIAL SLOW IVP SCH ×2 (07:56→21:28)
[2020-04-22] MEDS: Dexamethasone 20 MG/5 ML VIAL SLOW IVP SCH ×2 (07:56→21:27)
[2020-04-22] MEDS: Cholecalciferol (Vitamin D3) 400 UNITS TAB PO SCH (07:58)
[2020-04-22] MEDS: Ascorbic Acid 500 mg Chewable Tablet PO SCH (07:58)
[2020-04-22] MEDS: Calcium Carbonate 600 MG TAB PO SCH (07:59)
[2020-04-22] MEDS: Zinc Gluconate 50 MG TAB PO SCH (07:59)
[2020-04-22] MEDS: Pantoprazole 40 MG GRANULES PACKET PO SCH (07:59)
[2020-04-22] MEDS: Metoprolol Tartrate 25 MG TAB PO SCH ×2 (07:59→21:27)
[2020-04-22] MEDS: Vitamin E 400 UNITS CAP PO SCH (08:00)
[2020-04-22] MEDS ORDERED: Magnesium 2 GM/50 ML 2 GM in Premix Bag 1 BAG IVPB SCH (08:00)
[2020-04-22] MEDS: cefTRIAXone\\ROCEPHIN 2 GM in Sodium Chloride 0.9% 100 ML IVPB SCH (08:00)
[2020-04-22] MEDS ORDERED: Potassium Bicarbonate/Cit Ac 20 MEQ TAB PER TUBE SCH (08:00)
[2020-04-22] MEDS: Vecuronium Bromide 50 MG in Sodium Chloride 0.9% 250 ML 250 ML IV SCH ×3 (08:50→21:29)
[2020-04-22] MEDS: Fentanyl CADD 100 ML IV SCH ×3 (08:50→21:29)
[2020-04-23] MEDS: Sodium Chloride 0.9% 1,000 ML IV SCH ×2 (04:03→14:17)
[2020-04-23 04:39] LABS: #Monocytes 0.5 10x3/uL (0.0-1.1); #Neutrophils 8.8 10x3/uL (1.5-8.4); %Basophils 0.2 % (0.0-2.0); %Lymphocytes 2.7 % (18.0-47.0); %Monocytes 4.7 % (0.0-10.0); %Neutrophils 87.5 % (40.0-75.0); Mean Corpuscular HGB CONC 32.1 g/dL (32.0-36.0); Mean Corpuscular Hemoglobin 30.3 pg (27.0-33.0); Mean Corpuscular Volume 94.3 fl (81.6-98.3); Platelet Count 357 10x3/uL (150-450); RBC Distribution Width 17.2 % (11.5-14.5); Red Blood Cell (RBC) Count 2.97 10x6/uL (3.90-5.03); White Blood Cell (WBC) Count 10.1 10x3/uL (3.5-10.5)
[2020-04-23 04:52] LABS: Anion Gap 14 mmol/L (10-20); BUN (Urea Nitrogen) 25 mg/dL (9.8-20.1); Calc. Creatinine Clearance 164 mL/min (70-130); Calcium 8.7 mg/dL (7.8-10.44); Carbon Dioxide 35 mmol/L (22-29); Chloride 96 mmol/L (98-107); Glucose 158 mg/dL (70-105); Sodium 141 mmol/L (136-145)
[2020-04-23] MEDS: Budesonide 0.5 MG/2 ML NEB NEB SCH ×2 (07:42→20:17)
[2020-04-23] MEDS: Albuterol Sulfate 2.5 mg/3 ml Neb NEB PRN (07:43)
[2020-04-23] MEDS ORDERED: Fentanyl CADD 100 ML ONE (07:57)
[2020-04-23] MEDS: Fentanyl CADD 100 ML IV SCH ×2 (08:01→20:15)
[2020-04-23] MEDS: Ascorbic Acid 500 mg Chewable Tablet PO SCH (08:11)
[2020-04-23] MEDS: Zinc Gluconate 50 MG TAB PO SCH (08:11)
[2020-04-23] MEDS: Pantoprazole 40 MG GRANULES PACKET PO SCH (08:11)
[2020-04-23] MEDS: Cholecalciferol (Vitamin D3) 400 UNITS TAB PO SCH (08:12)
[2020-04-23] MEDS: Metoprolol Tartrate 25 MG TAB PO SCH ×2 (08:12→20:05)
[2020-04-23] MEDS: Calcium Carbonate 600 MG TAB PO SCH (08:12)
[2020-04-23] MEDS: Enoxaparin Sodium 100 MG/ML SYRINGE SC SCH ×2 (08:12→20:05)
[2020-04-23] MEDS: Dexamethasone 20 MG/5 ML VIAL SLOW IVP SCH ×2 (08:13→20:04)
[2020-04-23] MEDS: Vitamin E 400 UNITS CAP PO SCH (08:13)
[2020-04-23] MEDS: Furosemide 40 MG/4 ML VIAL SLOW IVP SCH ×2 (08:13→20:05)
[2020-04-23] MEDS: Vecuronium Bromide 50 MG in Sodium Chloride 0.9% 250 ML 250 ML IV SCH ×2 (09:23→20:18)
[2020-04-23] MEDS ORDERED: Magnesium 2 GM/50 ML 2 GM in Premix Bag 1 BAG IVPB SCH (12:00)
[2020-04-23 12:57] LABS: Actual Bicarbonate (HCO3a) 34.9 mEq/L (22-28); Base Excess (BEa) 10.1 mEq/L (-2.0 to +3.0); CO2 Tension 48.6 mmHg (35.0-45.0); Calcium, Ionized (arterial) 1.12 mmol/L (1.12-1.30); Carboxyhemoglobin (COHb) 0.3 gm% (0.0-3.0); Hemoglobin (Hb) 9.2 g/dL (12.0-16.0); O2 Tension (PaO2), arterial 70.5 mmHg (80.0-100.0); Potassium - ABG Lab 3.7 mmol/L (3.70-5.30); Puncture Site RRA; pH, Arterial 7.47 (7.35-7.45)
[2020-04-23] MEDS: clonazePAM 1 MG TAB PO SCH ×2 (15:08→20:05)
[2020-04-23 19:35] LABS: Actual Bicarbonate (HCO3a) 37.3 mEq/L (22-28); Base Excess (BEa) 10.6 mEq/L (-2.0 to +3.0); CO2 Tension 61.4 mmHg (35.0-45.0); Calcium, Ionized (arterial) 1.17 mmol/L (1.12-1.30); Carboxyhemoglobin (COHb) 0.3 gm% (0.0-3.0); Hemoglobin (Hb) 10.6 g/dL (12.0-16.0); O2 Tension (PaO2), arterial 58.4 mmHg (80.0-100.0); Potassium - ABG Lab 3.7 mmol/L (3.70-5.30); Puncture Site RRA
[2020-04-24] MEDS: Sodium Chloride 0.9% 1,000 ML IV SCH ×2 (02:20→15:31)
[2020-04-24] MEDS: Fentanyl CADD 100 ML IV SCH (05:04)
[2020-04-24] MEDS: Budesonide 0.5 MG/2 ML NEB NEB SCH ×2 (07:29→19:00)
[2020-04-24] MEDS: Pantoprazole 40 MG GRANULES PACKET PO SCH (08:17)
[2020-04-24] MEDS: clonazePAM 1 MG TAB PO SCH ×3 (08:17→20:13)
[2020-04-24] MEDS: Furosemide 40 MG/4 ML VIAL SLOW IVP SCH ×2 (08:17→20:13)
[2020-04-24] MEDS: Dexamethasone 20 MG/5 ML VIAL SLOW IVP SCH ×2 (08:17→20:13)
[2020-04-24] MEDS: Ascorbic Acid 500 mg Chewable Tablet PO SCH (08:17)
[2020-04-24] MEDS: Zinc Gluconate 50 MG TAB PO SCH (08:18)
[2020-04-24] MEDS: Vitamin E 400 UNITS CAP PO SCH (08:18)
[2020-04-24] MEDS: Enoxaparin Sodium 100 MG/ML SYRINGE SC SCH ×2 (08:18→20:12)
[2020-04-24] MEDS: Metoprolol Tartrate 25 MG TAB PO SCH ×2 (08:18→20:13)
[2020-04-24] MEDS: Calcium Carbonate 600 MG TAB PO SCH (08:18)
[2020-04-24] MEDS: Cholecalciferol (Vitamin D3) 400 UNITS TAB PO SCH (08:18)
[2020-04-24] MEDS: hydrALAZINE 20 MG/ML VIAL SLOW IVP PRN (10:25)
[2020-04-24] MEDS: Labetalol HCl 100 MG/20 ML VIAL SLOW IVP PRN (11:04)
[2020-04-24] MEDS: Propofol 1,000 MG/100 ML VIAL IV PRN ×2 (11:12→20:12)
[2020-04-24] MEDS: Vecuronium Bromide 50 MG in Sodium Chloride 0.9% 250 ML 250 ML IV SCH (13:56)
[2020-04-24] MEDS ORDERED: Fentanyl CADD 100 ML ONE (17:14)
[2020-04-24] MEDS ORDERED: Fentanyl BOLUS 250 ML IVPB PRN (17:56)
[2020-04-25] MEDS: Fentanyl CADD 100 ML IV SCH ×3 (01:16→21:30)
[2020-04-25] MEDS: Vecuronium Bromide 50 MG in Sodium Chloride 0.9% 250 ML 250 ML IV SCH ×3 (01:49→23:18)
[2020-04-25 03:39] LABS: Actual Bicarbonate (HCO3a) 36.8 mEq/L (22-28); Base Excess (BEa) 10.3 mEq/L (-2.0 to +3.0); CO2 Tension 60.3 mmHg (35.0-45.0); Calcium, Ionized (arterial) 1.15 mmol/L (1.12-1.30); Carboxyhemoglobin (COHb) 0.5 gm% (0.0-3.0); Hemoglobin (Hb) 10.1 g/dL (12.0-16.0); O2 Tension (PaO2), arterial 77.8 mmHg (80.0-100.0); Potassium - ABG Lab 3.8 mmol/L (3.70-5.30); Puncture Site RRA
[2020-04-25] MEDS: Propofol 1,000 MG/100 ML VIAL IV PRN ×2 (06:07→16:26)
[2020-04-25] MEDS: Sodium Chloride 0.9% 1,000 ML IV SCH ×2 (06:07→19:48)
[2020-04-25] MEDS: Budesonide 0.5 MG/2 ML NEB NEB SCH ×2 (06:20→19:18)
[2020-04-25] MEDS: Albuterol Sulfate 2.5 mg/3 ml Neb NEB PRN (06:20)
[2020-04-25] MEDS: Cholecalciferol (Vitamin D3) 400 UNITS TAB PO SCH (09:22)
[2020-04-25] MEDS: Ascorbic Acid 500 mg Chewable Tablet PO SCH (09:23)
[2020-04-25] MEDS: Pantoprazole 40 MG GRANULES PACKET PO SCH (09:23)
[2020-04-25] MEDS: Zinc Gluconate 50 MG TAB PO SCH (09:24)
[2020-04-25] MEDS: Metoprolol Tartrate 25 MG TAB PO SCH ×2 (09:24→20:53)
[2020-04-25] MEDS: Enoxaparin Sodium 100 MG/ML SYRINGE SC SCH ×2 (09:24→20:53)
[2020-04-25] MEDS: clonazePAM 1 MG TAB PO SCH ×3 (09:24→20:53)
[2020-04-25] MEDS: Dexamethasone 20 MG/5 ML VIAL SLOW IVP SCH ×2 (09:25→20:53)
[2020-04-25] MEDS: Furosemide 40 MG/4 ML VIAL SLOW IVP SCH ×2 (09:25→20:52)
[2020-04-25] MEDS: Calcium Carbonate 600 MG TAB PO SCH (09:28)
[2020-04-25] MEDS: Vitamin E 400 UNITS CAP PO SCH (09:28)
[2020-04-25] MEDS ORDERED: Fentanyl CADD 100 ML ONE (13:25)
[2020-04-25 15:26] LABS: Actual Bicarbonate (HCO3a) 38.7 mEq/L (22-28); Base Excess (BEa) 13.4 mEq/L (-2.0 to +3.0); CO2 Tension 53.6 mmHg (35.0-45.0); Calcium, Ionized (arterial) 1.12 mmol/L (1.12-1.30); Carboxyhemoglobin (COHb) 0.3 gm% (0.0-3.0); Hemoglobin (Hb) 9.8 g/dL (12.0-16.0); Potassium - ABG Lab 3.5 mmol/L (3.70-5.30); Puncture Site LRA; pH, Arterial 7.48 (7.35-7.45)
[2020-04-26] MEDS: Propofol 1,000 MG/100 ML VIAL IV PRN ×2 (01:48→19:58)
[2020-04-26] MEDS: Budesonide 0.5 MG/2 ML NEB NEB SCH ×2 (06:56→19:42)
[2020-04-26] MEDS: Furosemide 40 MG/4 ML VIAL SLOW IVP SCH ×2 (07:48→20:02)
[2020-04-26] MEDS: Pantoprazole 40 MG GRANULES PACKET PO SCH (07:48)
[2020-04-26] MEDS: Ascorbic Acid 500 mg Chewable Tablet PO SCH (07:49)
[2020-04-26] MEDS: Zinc Gluconate 50 MG TAB PO SCH (07:49)
[2020-04-26] MEDS: Calcium Carbonate 600 MG TAB PO SCH (07:49)
[2020-04-26] MEDS: Vitamin E 400 UNITS CAP PO SCH (07:49)
[2020-04-26] MEDS: clonazePAM 1 MG TAB PO SCH ×3 (07:49→20:01)
[2020-04-26] MEDS: Metoprolol Tartrate 25 MG TAB PO SCH ×2 (07:49→20:01)
[2020-04-26] MEDS: Cholecalciferol (Vitamin D3) 400 UNITS TAB PO SCH (07:49)
[2020-04-26] MEDS: Fentanyl CADD 100 ML IV SCH ×2 (07:50→20:57)
[2020-04-26] MEDS: Enoxaparin Sodium 100 MG/ML SYRINGE SC SCH ×2 (07:50→20:02)
[2020-04-26] MEDS: Sodium Chloride 0.9% 1,000 ML IV SCH ×2 (07:53→19:57)
[2020-04-26 10:59] LABS: Actual Bicarbonate (HCO3a) 38.2 mEq/L (22-28); Base Excess (BEa) 13.4 mEq/L (-2.0 to +3.0); CO2 Tension 50.4 mmHg (35.0-45.0); Calcium, Ionized (arterial) 1.16 mmol/L (1.12-1.30); Carboxyhemoglobin (COHb) 0.3 gm% (0.0-3.0); Hemoglobin (Hb) 9.7 g/dL (12.0-16.0); O2 Tension (PaO2), arterial 64.7 mmHg (80.0-100.0); Potassium - ABG Lab 3.2 mmol/L (3.70-5.30); Puncture Site RRA; RapidComm Collect By EA
[2020-04-26] MEDS: Vecuronium Bromide 50 MG in Sodium Chloride 0.9% 250 ML 250 ML IV SCH ×2 (12:51→20:59)
[2020-04-26] MEDS: Labetalol HCl 100 MG/20 ML VIAL SLOW IVP PRN (20:45)
[2020-04-26] MEDS: Acetaminophen 325 MG TAB PO PRN (21:45)
[2020-04-26 23:16] LABS: BUN (Urea Nitrogen) 31 mg/dL (9.8-20.1); Calc. Creatinine Clearance 160 mL/min (70-130); Calcium 8.3 mg/dL (7.8-10.44); Glucose 122 mg/dL (70-105)
[2020-04-26 23:23] LABS: Anion Gap 14 mmol/L (10-20); Carbon Dioxide 36 mmol/L (22-29); Chloride 96 mmol/L (98-107); Sodium 143 mmol/L (136-145)
[2020-04-26] MEDS ORDERED: Potassium Chloride 20 MEQ TAB PER TUBE SCH (23:59)
[2020-04-27 04:50] LABS: Anion Gap 10 mmol/L (10-20); BUN (Urea Nitrogen) 28 mg/dL (9.8-20.1); Calc. Creatinine Clearance 174 mL/min (70-130); Calcium 8.2 mg/dL (7.8-10.44); Carbon Dioxide 37 mmol/L (22-29); Chloride 99 mmol/L (98-107); Glucose 111 mg/dL (70-105); Potassium 3.8 mmol/L (3.5-5.1); Sodium 142 mmol/L (136-145)
[2020-04-27 05:08] LABS: Actual Bicarbonate (HCO3a) 38.7 mEq/L (22-28); Base Excess (BEa) 13.6 mEq/L (-2.0 to +3.0); CO2 Tension 51.9 mmHg (35.0-45.0); Calcium, Ionized (arterial) 1.13 mmol/L (1.12-1.30); Carboxyhemoglobin (COHb) 0.3 gm% (0.0-3.0); O2 Tension (PaO2), arterial 71.9 mmHg (80.0-100.0); Potassium - ABG Lab 3.5 mmol/L (3.70-5.30); Puncture Site RRA; pH, Arterial 7.49 (7.35-7.45)
[2020-04-27 05:10] LABS: ALV-art Gradient 362.325 mmHg (0-20)
[2020-04-27] MEDS: Budesonide 0.5 MG/2 ML NEB NEB SCH ×2 (07:05→19:31)
[2020-04-27] MEDS: Ascorbic Acid 500 mg Chewable Tablet PO SCH (09:12)
[2020-04-27] MEDS: Cholecalciferol (Vitamin D3) 400 UNITS TAB PO SCH (09:13)
[2020-04-27] MEDS: clonazePAM 1 MG TAB PO SCH ×3 (09:14→21:45)
[2020-04-27] MEDS: Enoxaparin Sodium 100 MG/ML SYRINGE SC SCH ×2 (09:14→21:45)
[2020-04-27] MEDS: Furosemide 40 MG/4 ML VIAL SLOW IVP SCH ×2 (09:15→21:45)
[2020-04-27] MEDS: Metoprolol Tartrate 25 MG TAB PO SCH ×2 (09:16→21:45)
[2020-04-27] MEDS: Pantoprazole 40 MG GRANULES PACKET PO SCH (09:16)
[2020-04-27] MEDS: Zinc Gluconate 50 MG TAB PO SCH (09:18)
[2020-04-27] MEDS: Calcium Carbonate 600 MG TAB PO SCH (09:20)
[2020-04-27] MEDS: Vitamin E 400 UNITS CAP PO SCH (09:27)
[2020-04-27] MEDS: Sodium Chloride 0.9% 1,000 ML IV SCH (11:33)
[2020-04-27] MEDS ORDERED: Dexamethasone 4 mg/ml Vial SLOW IVP SCH (12:30)
[2020-04-27] MEDS: Fentanyl CADD 100 ML IV SCH (18:15)
[2020-04-27] MEDS: Vecuronium Bromide 50 MG in Sodium Chloride 0.9% 250 ML 250 ML IV SCH (18:42)
[2020-04-28] MEDS: Fentanyl CADD 100 ML IV SCH ×3 (01:56→23:03)
[2020-04-28 03:53] LABS: #Monocytes 0.2 10x3/uL (0.0-1.1); #Neutrophils 4.7 10x3/uL (1.5-8.4); %Basophils 0.2 % (0.0-2.0); %Eosinophils 0.2 % (0.0-6.0); %Lymphocytes 10.1 % (18.0-47.0); %Monocytes 4.3 % (0.0-10.0); %Neutrophils 83.6 % (40.0-75.0); Hemoglobin 8.3 g/dL (12.0-15.5); Mean Corpuscular HGB CONC 31.1 g/dL (32.0-36.0); Mean Corpuscular Hemoglobin 30.5 pg (27.0-33.0); Mean Corpuscular Volume 98.2 fl (81.6-98.3); Mean Platelet Volume 10.3 fl (7.4-10.4); Platelet Count 243 10x3/uL (150-450); RBC Distribution Width 17.5 % (11.5-14.5); Red Blood Cell (RBC) Count 2.72 10x6/uL (3.90-5.03); White Blood Cell (WBC) Count 5.6 10x3/uL (3.5-10.5)
[2020-04-28 04:08] LABS: BUN (Urea Nitrogen) 29 mg/dL (9.8-20.1); Calc. Creatinine Clearance 166 mL/min (70-130); Calcium 8.5 mg/dL (7.8-10.44); Glucose 134 mg/dL (70-105)
[2020-04-28 04:15] LABS: Anion Gap 14 mmol/L (10-20); Carbon Dioxide 35 mmol/L (22-29); Chloride 98 mmol/L (98-107); Potassium 3.9 mmol/L (3.5-5.1); Sodium 143 mmol/L (136-145)
[2020-04-28] MEDS: Vecuronium Bromide 50 MG in Sodium Chloride 0.9% 250 ML 250 ML IV SCH (04:45)
[2020-04-28] MEDS: Budesonide 0.5 MG/2 ML NEB NEB SCH ×2 (07:30→19:45)
[2020-04-28] MEDS: Albuterol Sulfate 2.5 mg/3 ml Neb NEB PRN (08:01)
[2020-04-28] MEDS: Ascorbic Acid 500 mg Chewable Tablet PO SCH (08:13)
[2020-04-28] MEDS: Pantoprazole 40 MG GRANULES PACKET PO SCH (08:13)
[2020-04-28] MEDS: Zinc Gluconate 50 MG TAB PO SCH (08:13)
[2020-04-28] MEDS: Enoxaparin Sodium 100 MG/ML SYRINGE SC SCH ×2 (08:14→20:34)
[2020-04-28] MEDS: Dexamethasone 4 mg/ml Vial SLOW IVP SCH (08:14)
[2020-04-28] MEDS: clonazePAM 1 MG TAB PO SCH ×3 (08:14→20:34)
[2020-04-28] MEDS: Cholecalciferol (Vitamin D3) 400 UNITS TAB PO SCH (08:14)
[2020-04-28] MEDS: Metoprolol Tartrate 25 MG TAB PO SCH ×2 (08:14→20:35)
[2020-04-28] MEDS: Furosemide 40 MG/4 ML VIAL SLOW IVP SCH ×2 (08:14→20:34)
[2020-04-28] MEDS: Vitamin E 400 UNITS CAP PO SCH (08:15)
[2020-04-28] MEDS: Calcium Carbonate 600 MG TAB PO SCH (08:15)
[2020-04-28] MEDS: Sodium Chloride 0.9% 1,000 ML IV SCH (20:30)
[2020-04-28] MEDS ORDERED: Sterile Water 10 ML ONE (20:52)
[2020-04-28] MEDS: Vecuronium 10 MG VIAL IV PRN (21:06)
[2020-04-29] MEDS ORDERED: Sterile Water 10 ML ONE (03:50)
[2020-04-29 04:08] LABS: #Monocytes 0.5 10x3/uL (0.0-1.1); #Neutrophils 5.7 10x3/uL (1.5-8.4); %Basophils 0.3 % (0.0-2.0); %Eosinophils 0.5 % (0.0-6.0); %Lymphocytes 17.8 % (18.0-47.0); %Monocytes 5.9 % (0.0-10.0); %Neutrophils 73.8 % (40.0-75.0); Hemoglobin 8.8 g/dL (12.0-15.5); Mean Corpuscular HGB CONC 31.4 g/dL (32.0-36.0); Mean Corpuscular Hemoglobin 30.6 pg (27.0-33.0); Mean Corpuscular Volume 97.2 fl (81.6-98.3); Mean Platelet Volume 9.9 fl (7.4-10.4); Platelet Count 277 10x3/uL (150-450); RBC Distribution Width 17.6 % (11.5-14.5); Red Blood Cell (RBC) Count 2.88 10x6/uL (3.90-5.03); White Blood Cell (WBC) Count 7.7 10x3/uL (3.5-10.5)
[2020-04-29 04:11] LABS: BUN (Urea Nitrogen) 35 mg/dL (9.8-20.1); Calc. Creatinine Clearance 151 mL/min (70-130); Calcium 8.9 mg/dL (7.8-10.44); Glucose 113 mg/dL (70-105)
[2020-04-29 04:18] LABS: Anion Gap 13 mmol/L (10-20); Carbon Dioxide 37 mmol/L (22-29); Chloride 95 mmol/L (98-107); Potassium 3.8 mmol/L (3.5-5.1); Sodium 141 mmol/L (136-145)
[2020-04-29] MEDS: Vecuronium 10 MG VIAL IV PRN ×3 (04:31→22:21)
[2020-04-29] MEDS: Budesonide 0.5 MG/2 ML NEB NEB SCH ×2 (07:13→19:45)
[2020-04-29] MEDS: Furosemide 40 MG/4 ML VIAL SLOW IVP SCH ×2 (08:56→21:08)
[2020-04-29] MEDS: Dexamethasone 4 mg/ml Vial SLOW IVP SCH (08:56)
[2020-04-29] MEDS: Calcium Carbonate 600 MG TAB PO SCH (08:57)
[2020-04-29] MEDS: Ascorbic Acid 500 mg Chewable Tablet PO SCH (08:57)
[2020-04-29] MEDS: Vitamin E 400 UNITS CAP PO SCH (08:57)
[2020-04-29] MEDS: Cholecalciferol (Vitamin D3) 400 UNITS TAB PO SCH (08:57)
[2020-04-29] MEDS: Metoprolol Tartrate 25 MG TAB PO SCH ×2 (08:57→21:08)
[2020-04-29] MEDS: clonazePAM 1 MG TAB PO SCH ×3 (08:57→21:08)
[2020-04-29] MEDS: Enoxaparin Sodium 100 MG/ML SYRINGE SC SCH ×2 (08:58→21:09)
[2020-04-29] MEDS: Zinc Gluconate 50 MG TAB PO SCH (08:58)
[2020-04-29] MEDS: Pantoprazole 40 MG GRANULES PACKET PO SCH (08:58)
[2020-04-29 10:46] LABS: Actual Bicarbonate (HCO3a) 36.7 mEq/L (22-28); Base Excess (BEa) 11.7 mEq/L (-2.0 to +3.0); CO2 Tension 50.1 mmHg (35.0-45.0); Calcium, Ionized (arterial) 1.15 mmol/L (1.12-1.30); Carboxyhemoglobin (COHb) 0.1 gm% (0.0-3.0); Hemoglobin (Hb) 11.7 g/dL (12.0-16.0); O2 Tension (PaO2), arterial 64.5 mmHg (80.0-100.0); Potassium - ABG Lab 3.3 mmol/L (3.70-5.30); Puncture Site RBA; RapidComm Collect By EA; pH, Arterial 7.48 (7.35-7.45)
[2020-04-29 10:49] LABS: ALV-art Gradient 300.675 mmHg (0-20)
[2020-04-29] MEDS: Fentanyl CADD 100 ML IV SCH ×2 (11:23→21:09)
[2020-04-29] MEDS: Lorazepam 2 MG/ML VIAL SLOW IVP PRN (19:31)
[2020-04-29] MEDS: Acetaminophen 325 MG TAB PO PRN (22:30)
[2020-04-30] MEDS: Lorazepam 2 MG/ML VIAL SLOW IVP PRN ×2 (04:08→20:03)
[2020-04-30 04:20] LABS: #Monocytes 0.6 10x3/uL (0.0-1.1); #Neutrophils 9.2 10x3/uL (1.5-8.4); %Basophils 0.3 % (0.0-2.0); %Eosinophils 0.3 % (0.0-6.0); %Lymphocytes 12.1 % (18.0-47.0); %Neutrophils 80.4 % (40.0-75.0); Hemoglobin 8.4 g/dL (12.0-15.5); Mean Corpuscular HGB CONC 31.3 g/dL (32.0-36.0); Mean Corpuscular Hemoglobin 30.4 pg (27.0-33.0); Mean Corpuscular Volume 97.1 fl (81.6-98.3); Mean Platelet Volume 10.3 fl (7.4-10.4); Platelet Count 298 10x3/uL (150-450); RBC Distribution Width 17.9 % (11.5-14.5); Red Blood Cell (RBC) Count 2.76 10x6/uL (3.90-5.03); White Blood Cell (WBC) Count 11.4 10x3/uL (3.5-10.5)
[2020-04-30 04:38] LABS: BUN (Urea Nitrogen) 32 mg/dL (9.8-20.1); Calc. Creatinine Clearance 161 mL/min (70-130); Calcium 8.8 mg/dL (7.8-10.44); Glucose 118 mg/dL (70-105)
[2020-04-30 04:46] LABS: Anion Gap 16 mmol/L (10-20); Carbon Dioxide 35 mmol/L (22-29); Chloride 96 mmol/L (98-107); Potassium 3.8 mmol/L (3.5-5.1); Sodium 143 mmol/L (136-145)
[2020-04-30] MEDS: Vecuronium 10 MG VIAL IV PRN (05:47)
[2020-04-30] MEDS: hydrALAZINE 20 MG/ML VIAL SLOW IVP PRN (06:53)
[2020-04-30] MEDS: Labetalol HCl 100 MG/20 ML VIAL SLOW IVP PRN (07:00)
[2020-04-30] MEDS: Propofol 1,000 MG/100 ML VIAL IV PRN ×2 (07:15→19:52)
[2020-04-30] MEDS: Budesonide 0.5 MG/2 ML NEB NEB SCH ×2 (07:24→19:55)
[2020-04-30] MEDS: Fentanyl CADD 100 ML IV SCH ×2 (08:34→18:00)
[2020-04-30] MEDS: Furosemide 40 MG/4 ML VIAL SLOW IVP SCH ×2 (08:43→20:03)
[2020-04-30] MEDS: clonazePAM 1 MG TAB PO SCH ×3 (08:43→20:03)
[2020-04-30] MEDS: Zinc Gluconate 50 MG TAB PO SCH (08:43)
[2020-04-30] MEDS: Cholecalciferol (Vitamin D3) 400 UNITS TAB PO SCH (08:43)
[2020-04-30] MEDS: Enoxaparin Sodium 100 MG/ML SYRINGE SC SCH ×2 (08:43→20:03)
[2020-04-30] MEDS: Calcium Carbonate 600 MG TAB PO SCH (08:43)
[2020-04-30] MEDS: Dexamethasone 4 mg/ml Vial SLOW IVP SCH (08:43)
[2020-04-30] MEDS: Metoprolol Tartrate 25 MG TAB PO SCH ×2 (08:43→20:03)
[2020-04-30] MEDS: Pantoprazole 40 MG GRANULES PACKET PO SCH (08:43)
[2020-04-30] MEDS: Ascorbic Acid 500 mg Chewable Tablet PO SCH (08:43)
[2020-04-30] MEDS: Vitamin E 400 UNITS CAP PO SCH (08:43)
[2020-04-30 08:44] LABS: Actual Bicarbonate (HCO3a) 36.4 mEq/L (22-28); Base Excess (BEa) 11.1 mEq/L (-2.0 to +3.0); CO2 Tension 52.8 mmHg (35.0-45.0); Calcium, Ionized (arterial) 1.17 mmol/L (1.12-1.30); Carboxyhemoglobin (COHb) 0.2 gm% (0.0-3.0); Hemoglobin (Hb) 9.6 g/dL (12.0-16.0); Potassium - ABG Lab 3.6 mmol/L (3.70-5.30); Puncture Site LRA; RapidComm Collect By EA; pH, Arterial 7.46 (7.35-7.45)
[2020-04-30] MEDS: Acetaminophen 325 MG TAB PO PRN (23:17)
[2020-05-01] MEDS: Propofol 1,000 MG/100 ML VIAL IV PRN ×3 (01:25→19:12)
[2020-05-01] MEDS: Fentanyl CADD 100 ML IV SCH ×2 (05:09→19:26)
[2020-05-01 05:26] LABS: Hemoglobin 6.9 g/dL (12.0-15.5); Mean Corpuscular HGB CONC 31.2 g/dL (32.0-36.0); Mean Corpuscular Hemoglobin 30.4 pg (27.0-33.0); Mean Corpuscular Volume 97.4 fl (81.6-98.3); Mean Platelet Volume 11.1 fl (7.4-10.4); Platelet Count 263 10x3/uL (150-450); RBC Distribution Width 18.2 % (11.5-14.5); Red Blood Cell (RBC) Count 2.27 10x6/uL (3.90-5.03); White Blood Cell (WBC) Count 13.2 10x3/uL (3.5-10.5)
[2020-05-01 05:32] LABS: Anion Gap 13 mmol/L (10-20); BUN (Urea Nitrogen) 36 mg/dL (9.8-20.1); Calc. Creatinine Clearance 150 mL/min (70-130); Calcium 8.7 mg/dL (7.8-10.44); Carbon Dioxide 37 mmol/L (22-29); Chloride 96 mmol/L (98-107); Glucose 129 mg/dL (70-105); Potassium 3.5 mmol/L (3.5-5.1); Sodium 142 mmol/L (136-145)
[2020-05-01 06:17] LABS: Lymphocytes 6 % (21-51); Monocytes 2 % (0-10); Myelocyte 1 % (0-0); Neutrophil 57 % (42-75); Reactive Lymphocytes 2 % (0-10)
[2020-05-01 06:21] LABS: Band 31 % (5-11); Metamyelocyte 1 % (0-0)
[2020-05-01 06:22] LABS: Elliptocytes SLIGHT = 2-5 cells (100X) (0-1/hpf); Ovalocytes SLIGHT = 2-5 cells (100X) (0-1/hpf); Poikilocytosis SLIGHT = 6-15 cells (100X) (0-5/hpf)
[2020-05-01 06:23] LABS: Anisocytosis SLIGHT = 6-15 cells (100X) (0-5/hpf); Macrocytosis SLIGHT = 6-15 cells (100X) (0-5/hpf); Microcytosis SLIGHT = 6-15 cells (100X) (0-5/hpf); Platelet Morphology Comment Appears Adequate
[2020-05-01 06:24] LABS: Large Platelets SLIGHT; Platelet Clumps MODERATE; Toxic Granulation SLIGHT
[2020-05-01 06:26] LABS: MDiff Complete? YES; Manual Diff?? YES
[2020-05-01] MEDS: Budesonide 0.5 MG/2 ML NEB NEB SCH ×2 (07:08→18:57)
[2020-05-01 07:46] LABS: INR-International Normal Ratio 1.1; PTT 30.5 sec (22.0-33.0); Prothrombin Time 11.2 sec (9.5-12.1)
[2020-05-01] MEDS ORDERED: Potassium Bicarbonate/Cit Ac 20 MEQ TAB PER TUBE SCH (08:00)
[2020-05-01] MEDS ORDERED: Potassium Bicarbonate/Cit Ac 20 MEQ TAB PO SCH (08:00)
[2020-05-01 09:17] LABS: Actual Bicarbonate (HCO3a) 39.4 mEq/L (22-28); CO2 Tension 57.9 mmHg (35.0-45.0); Calcium, Ionized (arterial) 1.16 mmol/L (1.12-1.30); Carboxyhemoglobin (COHb) 0.8 gm% (0.0-3.0); Hemoglobin (Hb) 7.2 g/dL (12.0-16.0); Potassium - ABG Lab 3.5 mmol/L (3.70-5.30); Puncture Site RRA; RapidComm Collect By EA; pH, Arterial 7.45 (7.35-7.45)
[2020-05-01 09:19] LABS: ALV-art Gradient 362.725 mmHg (0-20)
[2020-05-01] MEDS: Calcium Carbonate 600 MG TAB PO SCH (09:19)
[2020-05-01] MEDS: Cholecalciferol (Vitamin D3) 400 UNITS TAB PO SCH (09:19)
[2020-05-01] MEDS: Vitamin E 400 UNITS CAP PO SCH (09:19)
[2020-05-01] MEDS: Pantoprazole 40 MG GRANULES PACKET PO SCH (09:19)
[2020-05-01] MEDS: Furosemide 40 MG/4 ML VIAL SLOW IVP SCH ×2 (09:19→20:47)
[2020-05-01] MEDS: clonazePAM 1 MG TAB PO SCH ×3 (09:19→20:47)
[2020-05-01] MEDS: Metoprolol Tartrate 25 MG TAB PO SCH ×2 (09:20→20:47)
[2020-05-01] MEDS: Ascorbic Acid 500 mg Chewable Tablet PO SCH (09:20)
[2020-05-01] MEDS: Zinc Gluconate 50 MG TAB PO SCH (09:36)
[2020-05-01] MEDS: oxyCODONE 5 MG TAB PO SCH ×4 (10:59→23:28)
[2020-05-01 13:40] LABS: Hemoglobin 7.8 g/dL (12.0-15.5)
[2020-05-01] MEDS: Albuterol Sulfate 2.5 mg/3 ml Neb NEB PRN (18:57)
[2020-05-01] MEDS: Vecuronium 10 MG VIAL IV PRN (19:12)
[2020-05-01] MEDS: Norepinephrine 8 MG/0.9% NS 250 ML IVPB PRN ×2 (21:10→22:59)
[2020-05-01] MEDS: Cefepime 2 GM in Sodium Chloride 0.9% 100 ML IVPB SCH (22:48)
[2020-05-01 22:54] LABS: Hemoglobin 8.1 g/dL (12.0-15.5); Mean Corpuscular HGB CONC 30.7 g/dL (32.0-36.0); Mean Corpuscular Hemoglobin 29.9 pg (27.0-33.0); Mean Corpuscular Volume 97.4 fl (81.6-98.3); Mean Platelet Volume 10.3 fl (7.4-10.4); Platelet Count 261 10x3/uL (150-450); RBC Distribution Width 19.4 % (11.5-14.5); Red Blood Cell (RBC) Count 2.71 10x6/uL (3.90-5.03); White Blood Cell (WBC) Count 11.4 10x3/uL (3.5-10.5)
[2020-05-01] MEDS ORDERED: Vancomycin HCl 1 GM in Sodium Chloride 0.9% 250 ML 250 ML IVPB SCH ×2 (23:00→23:59)
[2020-05-02] MEDS: Propofol 1,000 MG/100 ML VIAL IV PRN ×5 (00:16→20:43)
[2020-05-02 00:23] LABS: Band 38 % (5-11); Eosinophils 1 % (0-10); Lymphocytes 5 % (21-51); Metamyelocyte 2 % (0-0); Monocytes 5 % (0-10); Myelocyte 2 % (0-0); Neutrophil 47 % (42-75)
[2020-05-02 00:24] LABS: Anisocytosis MODERATE=16-30 cells (100X) (0-5/hpf); Macrocytosis SLIGHT = 6-15 cells (100X) (0-5/hpf); Microcytosis SLIGHT = 6-15 cells (100X) (0-5/hpf)
[2020-05-02 00:25] LABS: Polychromasia SLIGHT = 2-3 cells (100X) (0-2/hpf)
[2020-05-02 00:26] LABS: Dohle Bodies SLIGHT; Giant Platelets SLIGHT; Large Platelets MODERATE
[2020-05-02 00:28] LABS: Toxic Granulation SLIGHT
[2020-05-02 00:29] LABS: Platelet Morphology Comment Appears Adequate
[2020-05-02 00:30] LABS: MDiff Complete? YES; Manual Diff?? YES
[2020-05-02] MEDS: Norepinephrine 8 MG/0.9% NS 250 ML IVPB PRN ×4 (03:22→22:58)
[2020-05-02] MEDS: oxyCODONE 5 MG TAB PO SCH ×6 (03:33→23:37)
[2020-05-02 04:21] LABS: Hemoglobin 7.3 g/dL (12.0-15.5); Mean Corpuscular HGB CONC 31.3 g/dL (32.0-36.0); Mean Corpuscular Hemoglobin 29.8 pg (27.0-33.0); Mean Corpuscular Volume 95.1 fl (81.6-98.3); Platelet Count 303 10x3/uL (150-450); RBC Distribution Width 19.2 % (11.5-14.5); Red Blood Cell (RBC) Count 2.45 10x6/uL (3.90-5.03); White Blood Cell (WBC) Count 19.2 10x3/uL (3.5-10.5)
[2020-05-02 04:33] LABS: Anion Gap 13 mmol/L (10-20); BUN (Urea Nitrogen) 36 mg/dL (9.8-20.1); Calc. Creatinine Clearance 132 mL/min (70-130); Calcium 8.4 mg/dL (7.8-10.44); Carbon Dioxide 33 mmol/L (22-29); Chloride 99 mmol/L (98-107); Glucose 155 mg/dL (70-105); Potassium 4.2 mmol/L (3.5-5.1); Sodium 141 mmol/L (136-145)
[2020-05-02 04:45] LABS: Actual Bicarbonate (HCO3a) 32.8 mEq/L (22-28); Base Excess (BEa) 7.4 mEq/L (-2.0 to +3.0); CO2 Tension 52.4 mmHg (35.0-45.0); Carboxyhemoglobin (COHb) 0.4 gm% (0.0-3.0); Hemoglobin (Hb) 7.7 g/dL (12.0-16.0); Potassium - ABG Lab 3.7 mmol/L (3.70-5.30); Puncture Site RRA; pH, Arterial 7.42 (7.35-7.45)
[2020-05-02 05:38] LABS: Band 43 % (5-11); Lymphocytes 2 % (21-51); Metamyelocyte 6 % (0-0); Monocytes 4 % (0-10); Myelocyte 3 % (0-0); Neutrophil 38 % (42-75); Reactive Lymphocytes 4 % (0-10)
[2020-05-02 05:42] LABS: Anisocytosis MODERATE=16-30 cells (100X) (0-5/hpf); Macrocytosis SLIGHT = 6-15 cells (100X) (0-5/hpf); Microcytosis SLIGHT = 6-15 cells (100X) (0-5/hpf)
[2020-05-02 05:45] LABS: Ovalocytes SLIGHT = 2-5 cells (100X) (0-1/hpf)
[2020-05-02 05:46] LABS: Dohle Bodies MODERATE; Large Platelets MODERATE; Platelet Clumps SLIGHT; Vacuoles SLIGHT
[2020-05-02 05:47] LABS: MDiff Complete? YES; Manual Diff?? YES; Platelet Morphology Comment Appears Adequate
[2020-05-02] MEDS: Fentanyl CADD 100 ML IV SCH ×2 (06:16→20:45)
[2020-05-02] MEDS: Budesonide 0.5 MG/2 ML NEB NEB SCH ×2 (07:13→19:42)
[2020-05-02] MEDS: Albuterol Sulfate 2.5 mg/3 ml Neb NEB PRN (07:14)
[2020-05-02] MEDS: Cefepime 2 GM in Sodium Chloride 0.9% 100 ML IVPB SCH ×2 (08:53→21:24)
[2020-05-02] MEDS: clonazePAM 1 MG TAB PO SCH ×3 (08:53→20:44)
[2020-05-02] MEDS: Metoprolol Tartrate 25 MG TAB PO SCH ×2 (08:53→20:44)
[2020-05-02] MEDS: Furosemide 40 MG/4 ML VIAL SLOW IVP SCH ×3 (08:53→20:43)
[2020-05-02] MEDS: Vitamin E 400 UNITS CAP PO SCH (08:54)
[2020-05-02] MEDS: Ascorbic Acid 500 mg Chewable Tablet PO SCH (08:54)
[2020-05-02] MEDS: Zinc Gluconate 50 MG TAB PO SCH (08:54)
[2020-05-02] MEDS: Cholecalciferol (Vitamin D3) 400 UNITS TAB PO SCH (08:54)
[2020-05-02] MEDS: Pantoprazole 40 MG GRANULES PACKET PO SCH (08:54)
[2020-05-02] MEDS: Calcium Carbonate 600 MG TAB PO SCH (08:55)
[2020-05-02] MEDS ORDERED: Vancomycin HCl 1 GM in Sodium Chloride 0.9% 250 ML 250 ML IVPB SCH (09:00)
[2020-05-02] MEDS: Acetaminophen 325 MG TAB PO PRN (09:19)
[2020-05-02] MEDS: Vancomycin 1.5 GRAM/300 ML BAG 1.5 GM in Premix Bag 1 BAG IVPB SCH ×2 (12:26→23:37)
[2020-05-02] MEDS: Micafungin 100 MG in Sodium Chloride 0.9% 100 ML IVPB SCH (12:26)
[2020-05-02] MEDS: Hydrocortisone Sod Succ/PF 100 mg/2 ml Vial IVP SCH ×3 (12:32→20:43)
[2020-05-02] MEDS: Vasopressin 20 UNIT, Admixture Fee 1 EACH in Sodium Chloride 0.9% 50 ML IV SCH (12:32)
[2020-05-03] MEDS: Propofol 1,000 MG/100 ML VIAL IV PRN ×4 (01:39→19:42)
[2020-05-03] MEDS: oxyCODONE 5 MG TAB PO SCH ×5 (03:50→23:19)
[2020-05-03] MEDS: Vasopressin 20 UNIT, Admixture Fee 1 EACH in Sodium Chloride 0.9% 50 ML IV SCH (05:59)
[2020-05-03 06:50] LABS: Anion Gap 12 mmol/L (10-20); BUN (Urea Nitrogen) 34 mg/dL (9.8-20.1); Calc. Creatinine Clearance 146 mL/min (70-130); Calcium 8.7 mg/dL (7.8-10.44); Carbon Dioxide 36 mmol/L (22-29); Chloride 98 mmol/L (98-107); Glucose 114 mg/dL (70-105); Potassium 3.2 mmol/L (3.5-5.1); Sodium 143 mmol/L (136-145)
[2020-05-03 06:52] LABS: Hemoglobin 7.4 g/dL (12.0-15.5); Mean Corpuscular HGB CONC 32.2 g/dL (32.0-36.0); Mean Corpuscular Volume 96.2 fl (81.6-98.3); Mean Platelet Volume 10.7 fl (7.4-10.4); Platelet Count 208 10x3/uL (150-450); RBC Distribution Width 17.2 % (11.5-14.5); Red Blood Cell (RBC) Count 2.39 10x6/uL (3.90-5.03); White Blood Cell (WBC) Count 13.2 10x3/uL (3.5-10.5)
[2020-05-03] MEDS: Budesonide 0.5 MG/2 ML NEB NEB SCH ×2 (07:29→19:28)
[2020-05-03] MEDS: Albuterol Sulfate 2.5 mg/3 ml Neb NEB PRN (07:30)
[2020-05-03 08:05] LABS: MDiff Complete? YES
[2020-05-03 08:11] LABS: Band 4 % (5-11); Lymphocytes 7 % (21-51); Monocytes 1 % (0-10); Neutrophil 88 % (42-75)
[2020-05-03 08:12] LABS: Anisocytosis SLIGHT = 6-15 cells (100X) (0-5/hpf)
[2020-05-03 08:13] LABS: Platelet Morphology Comment Appears Adequate
[2020-05-03] MEDS: Hydrocortisone Sod Succ/PF 100 mg/2 ml Vial IVP SCH ×3 (08:15→21:35)
[2020-05-03] MEDS: Furosemide 40 MG/4 ML VIAL SLOW IVP SCH ×3 (08:15→21:34)
[2020-05-03] MEDS: clonazePAM 1 MG TAB PO SCH ×3 (08:15→21:33)
[2020-05-03] MEDS: Cholecalciferol (Vitamin D3) 400 UNITS TAB PO SCH (08:15)
[2020-05-03] MEDS: Ascorbic Acid 500 mg Chewable Tablet PO SCH (08:16)
[2020-05-03] MEDS: Pantoprazole 40 MG GRANULES PACKET PO SCH (08:16)
[2020-05-03] MEDS: Vitamin E 400 UNITS CAP PO SCH (08:16)
[2020-05-03] MEDS: Calcium Carbonate 600 MG TAB PO SCH (08:16)
[2020-05-03] MEDS: Zinc Gluconate 50 MG TAB PO SCH (08:16)
[2020-05-03] MEDS: Metoprolol Tartrate 25 MG TAB PO SCH ×2 (08:16→21:34)
[2020-05-03] MEDS: Cefepime 2 GM in Sodium Chloride 0.9% 100 ML IVPB SCH ×2 (08:27→21:36)
[2020-05-03] MEDS ORDERED: Potassium Bicarbonate/Cit Ac 20 MEQ TAB PER TUBE SCH (08:30)
[2020-05-03] MEDS ORDERED: oxyCODONE 5 MG TAB PO SCH (08:30)
[2020-05-03] MEDS: Fentanyl CADD 100 ML IV SCH ×2 (08:50→21:35)
[2020-05-03 10:15] LABS: Vancomycin, Trough 21.3 ug/mL
[2020-05-03] MEDS ORDERED: Enoxaparin Sodium 40 MG/0.4 ML SYRINGE SC SCH (11:30)
[2020-05-03] MEDS: VANCOMYCIN 1.25 GM/250 ML BAG 1.25 GM in Premix Bag 1 BAG IVPB SCH ×2 (12:48→23:20)
[2020-05-03] MEDS: Micafungin 100 MG in Sodium Chloride 0.9% 100 ML IVPB SCH (12:49)
[2020-05-03 13:44] LABS: ALV-art Gradient 446.625 mmHg (0-20); Base Excess (BEa) 11.1 mEq/L (-2.0 to +3.0); CO2 Tension 50.7 mmHg (35.0-45.0); Calcium, Ionized (arterial) 1.14 mmol/L (1.12-1.30); Carboxyhemoglobin (COHb) 0.5 gm% (0.0-3.0); Hemoglobin (Hb) 8.1 g/dL (12.0-16.0); O2 Tension (PaO2), arterial 60.4 mmHg (80.0-100.0); Potassium - ABG Lab 3.4 mmol/L (3.70-5.30); Puncture Site LRA; pH, Arterial 7.47 (7.35-7.45)
[2020-05-04] MEDS: Propofol 1,000 MG/100 ML VIAL IV PRN ×5 (02:36→22:14)
[2020-05-04 03:14] LABS: Actual Bicarbonate (HCO3a) 38.6 mEq/L (22-28); Base Excess (BEa) 13.3 mEq/L (-2.0 to +3.0); CO2 Tension 55.4 mmHg (35.0-45.0); Calcium, Ionized (arterial) 1.16 mmol/L (1.12-1.30); Carboxyhemoglobin (COHb) 0.5 gm% (0.0-3.0); Hemoglobin (Hb) 7.7 g/dL (12.0-16.0); O2 Tension (PaO2), arterial 63.5 mmHg (80.0-100.0); Potassium - ABG Lab 2.9 mmol/L (3.70-5.30); Puncture Site RRA; pH, Arterial 7.46 (7.35-7.45)
[2020-05-04] MEDS: oxyCODONE 5 MG TAB PO SCH ×6 (04:01→23:44)
[2020-05-04 04:03] LABS: #Monocytes 0.6 10x3/uL (0.0-1.1); #Neutrophils 11.1 10x3/uL (1.5-8.4); %Basophils 0.2 % (0.0-2.0); %Eosinophils 0.2 % (0.0-6.0); %Lymphocytes 5.6 % (18.0-47.0); %Monocytes 4.3 % (0.0-10.0); %Neutrophils 85.8 % (40.0-75.0); Hemoglobin 7.1 g/dL (12.0-15.5); Mean Corpuscular Volume 96.6 fl (81.6-98.3); Mean Platelet Volume 11.2 fl (7.4-10.4); Platelet Count 205 10x3/uL (150-450); RBC Distribution Width 17.3 % (11.5-14.5); Red Blood Cell (RBC) Count 2.37 10x6/uL (3.90-5.03); White Blood Cell (WBC) Count 12.9 10x3/uL (3.5-10.5)
[2020-05-04 04:20] LABS: ALT (SGPT) 11 U/L (8-55); AST (SGOT) 15 U/L (5-34); Albumin 2.6 g/dL (3.5-5.0); Alkaline Phosphatase 96 U/L (40-110); Anion Gap 14 mmol/L (10-20); BUN (Urea Nitrogen) 35 mg/dL (9.8-20.1); Bilirubin, Total 0.5 mg/dL (0.2-1.2); CRP (Inflammatory) 23.85 mg/dL (= or < 0.5); Calc. Creatinine Clearance 146 mL/min (70-130); Calcium 8.8 mg/dL (7.8-10.44); Carbon Dioxide 36 mmol/L (22-29); Chloride 98 mmol/L (98-107); Globulin 3.3 g/dL (2.4-3.5); Glucose 105 mg/dL (70-105); Magnesium 1.9 mg/dL (1.6-2.6); Protein, Total 5.9 g/dL (6.0-8.3); Sodium 145 mmol/L (136-145)
[2020-05-04 04:24] LABS: Potassium 2.9 mmol/L (3.5-5.1)
[2020-05-04 04:31] LABS: Phosphorus 2.9 mg/dL (2.3-4.7)
[2020-05-04] MEDS: Potassium Chloride 20 MEQ TAB PER TUBE SCH ×2 (04:40→08:06)
[2020-05-04] MEDS: Budesonide 0.5 MG/2 ML NEB NEB SCH ×2 (07:18→19:15)
[2020-05-04] MEDS: Enoxaparin Sodium 40 MG/0.4 ML SYRINGE SC SCH (08:04)
[2020-05-04] MEDS: Furosemide 40 MG/4 ML VIAL SLOW IVP SCH ×3 (08:04→22:14)
[2020-05-04] MEDS: Ascorbic Acid 500 mg Chewable Tablet PO SCH (08:04)
[2020-05-04] MEDS: Zinc Gluconate 50 MG TAB PO SCH (08:05)
[2020-05-04] MEDS: Pantoprazole 40 MG GRANULES PACKET PO SCH (08:05)
[2020-05-04] MEDS: Cholecalciferol (Vitamin D3) 400 UNITS TAB PO SCH (08:05)
[2020-05-04] MEDS: Metoprolol Tartrate 25 MG TAB PO SCH ×2 (08:05→22:14)
[2020-05-04] MEDS: Vitamin E 400 UNITS CAP PO SCH (08:05)
[2020-05-04] MEDS: clonazePAM 1 MG TAB PO SCH ×3 (08:06→22:14)
[2020-05-04] MEDS: Calcium Carbonate 600 MG TAB PO SCH (08:06)
[2020-05-04] MEDS: Hydrocortisone Sod Succ/PF 100 mg/2 ml Vial IVP SCH ×3 (08:07→22:14)
[2020-05-04] MEDS ORDERED: Magnesium 2 GM/50 ML 2 GM in Premix Bag 1 BAG IVPB SCH (09:00)
[2020-05-04] MEDS: Cefepime 2 GM in Sodium Chloride 0.9% 100 ML IVPB SCH ×2 (09:47→22:15)
[2020-05-04] MEDS: VANCOMYCIN 1.25 GM/250 ML BAG 1.25 GM in Premix Bag 1 BAG IVPB SCH (10:48)
[2020-05-04] MEDS: Micafungin 100 MG in Sodium Chloride 0.9% 100 ML IVPB SCH (11:40)
[2020-05-04] MEDS: Fentanyl CADD 100 ML IV SCH (13:35)
[2020-05-04 13:49] LABS: Potassium 3.1 mmol/L (3.5-5.1)
[2020-05-04] MEDS ORDERED: Potassium Bicarbonate/Cit Ac 20 MEQ TAB PER TUBE SCH (15:00)
[2020-05-04] MEDS ORDERED: Fentanyl BOLUS 250 ML IVPB PRN (20:40)
[2020-05-04 20:45] LABS: Hemoglobin 8.2 g/dL (12.0-15.5); Mean Corpuscular HGB CONC 31.3 g/dL (32.0-36.0); Mean Corpuscular Hemoglobin 29.9 pg (27.0-33.0); Mean Corpuscular Volume 95.6 fl (81.6-98.3); Mean Platelet Volume 10.2 fl (7.4-10.4); Platelet Count 241 10x3/uL (150-450); RBC Distribution Width 16.9 % (11.5-14.5); Red Blood Cell (RBC) Count 2.74 10x6/uL (3.90-5.03); White Blood Cell (WBC) Count 11.5 10x3/uL (3.5-10.5)
[2020-05-04 21:07] LABS: MDiff Complete? YES
[2020-05-04 21:12] LABS: Band 11 % (5-11); Lymphocytes 7 % (21-51); Neutrophil 78 % (42-75)
[2020-05-04 21:13] LABS: Anisocytosis MODERATE=16-30 cells (100X) (0-5/hpf); Monocytes 4 % (0-10); Platelet Morphology Comment Appears Adequate; Poikilocytosis MODERATE=16-30 cells (100X) (0-5/hpf); Polychromasia SLIGHT = 2-3 cells (100X) (0-2/hpf); Stomatocytes SLIGHT = 2-5 cells (100X) (0-1/hpf); Vacuoles SLIGHT
[2020-05-04 22:55] LABS: Vancomycin, Trough 21.2 ug/mL
[2020-05-04] MEDS: Vecuronium 10 MG VIAL IV PRN (22:56)
[2020-05-04] MEDS: Vancomycin HCl 1 GM in Sodium Chloride 0.9% 250 ML 250 ML IVPB SCH (23:44)
[2020-05-05] MEDS: Fentanyl CADD 100 ML IV SCH ×2 (00:01→23:37)
[2020-05-05] MEDS: Propofol 1,000 MG/100 ML VIAL IV PRN ×4 (02:43→21:13)
[2020-05-05] MEDS: oxyCODONE 5 MG TAB PO SCH ×5 (03:40→20:08)
[2020-05-05 04:26] LABS: Hemoglobin 8.6 g/dL (12.0-15.5); Mean Corpuscular HGB CONC 30.7 g/dL (32.0-36.0); Mean Corpuscular Volume 97.6 fl (81.6-98.3); Mean Platelet Volume 10.3 fl (7.4-10.4); Platelet Count 258 10x3/uL (150-450); RBC Distribution Width 16.8 % (11.5-14.5); Red Blood Cell (RBC) Count 2.87 10x6/uL (3.90-5.03); White Blood Cell (WBC) Count 12.3 10x3/uL (3.5-10.5)
[2020-05-05 04:27] LABS: Phosphorus 2.9 mg/dL (2.3-4.7)
[2020-05-05 04:29] LABS: ALT (SGPT) 10 U/L (8-55); AST (SGOT) 13 U/L (5-34); Alkaline Phosphatase 114 U/L (40-110); BUN (Urea Nitrogen) 33 mg/dL (9.8-20.1); Bilirubin, Total 0.6 mg/dL (0.2-1.2); Calc. Creatinine Clearance 151 mL/min (70-130); Calcium 8.9 mg/dL (7.8-10.44); Glucose 123 mg/dL (70-105); Magnesium 2.1 mg/dL (1.6-2.6)
[2020-05-05 04:36] LABS: Anion Gap 19 mmol/L (10-20); Carbon Dioxide 38 mmol/L (22-29); Chloride 94 mmol/L (98-107); Potassium 3.2 mmol/L (3.5-5.1); Sodium 148 mmol/L (136-145)
[2020-05-05] MEDS ORDERED: Potassium Chloride 20 MEQ TAB PO SCH (05:15)
[2020-05-05 05:32] LABS: MDiff Complete? YES
[2020-05-05 05:35] LABS: Band 13 % (5-11); Lymphocytes 6 % (21-51); Metamyelocyte 3 % (0-0); Monocytes 5 % (0-10); Neutrophil 73 % (42-75)
[2020-05-05 05:37] LABS: Anisocytosis MODERATE=16-30 cells (100X) (0-5/hpf); Basophilic Stippling SLIGHT = 1-2 cells (100X) (None Seen); Hypochromia MODERATE=16-30 cells (100X) (0-5/hpf); Poikilocytosis MODERATE=16-30 cells (100X) (0-5/hpf); Polychromasia SLIGHT = 2-3 cells (100X) (0-2/hpf); Stomatocytes SLIGHT = 2-5 cells (100X) (0-1/hpf)
[2020-05-05 05:38] LABS: Platelet Morphology Comment Appears Adequate; Rouleaux Formation SLIGHT = 1-5 cells (100X) (None Seen)
[2020-05-05] MEDS: Budesonide 0.5 MG/2 ML NEB NEB SCH ×2 (07:55→19:37)
[2020-05-05] MEDS: Furosemide 40 MG/4 ML VIAL SLOW IVP SCH ×3 (08:05→20:09)
[2020-05-05] MEDS: Zinc Gluconate 50 MG TAB PO SCH (08:06)
[2020-05-05] MEDS: Enoxaparin Sodium 40 MG/0.4 ML SYRINGE SC SCH (08:06)
[2020-05-05] MEDS: Ascorbic Acid 500 mg Chewable Tablet PO SCH (08:06)
[2020-05-05] MEDS: Calcium Carbonate 600 MG TAB PO SCH (08:07)
[2020-05-05] MEDS: Vitamin E 400 UNITS CAP PO SCH (08:07)
[2020-05-05] MEDS: Cholecalciferol (Vitamin D3) 400 UNITS TAB PO SCH (08:09)
[2020-05-05] MEDS: Hydrocortisone Sod Succ/PF 100 mg/2 ml Vial IVP SCH (08:12)
[2020-05-05] MEDS: Pantoprazole 40 MG GRANULES PACKET PO SCH (08:31)
[2020-05-05 08:33] LABS: Actual Bicarbonate (HCO3a) 43.7 mEq/L (22-28); Base Excess (BEa) 18.1 mEq/L (-2.0 to +3.0); CO2 Tension 57.5 mmHg (35.0-45.0); Calcium, Ionized (arterial) 1.12 mmol/L (1.12-1.30); Carboxyhemoglobin (COHb) 0.4 gm% (0.0-3.0); Hemoglobin (Hb) 10.1 g/dL (12.0-16.0); O2 Tension (PaO2), arterial 54.2 mmHg (80.0-100.0); Potassium - ABG Lab 3.5 mmol/L (3.70-5.30); Puncture Site RRA; RapidComm Collect By EA
[2020-05-05 08:35] LABS: ALV-art Gradient 408.675 mmHg (0-20)
[2020-05-05] MEDS: Acetaminophen 325 MG TAB PO PRN (08:42)
[2020-05-05] MEDS: clonazePAM 1 MG TAB PO SCH ×3 (08:44→20:09)
[2020-05-05] MEDS ORDERED: clonazePAM 0.5 MG TAB PO SCH (08:45)
[2020-05-05] MEDS: Cefepime 2 GM in Sodium Chloride 0.9% 100 ML IVPB SCH (10:21)
[2020-05-05] MEDS: Metoprolol Tartrate 25 MG TAB PO SCH ×2 (10:27→20:09)
[2020-05-05] MEDS: Micafungin 100 MG in Sodium Chloride 0.9% 100 ML IVPB SCH (13:46)
[2020-05-05] MEDS: Vancomycin HCl 1 GM in Sodium Chloride 0.9% 250 ML 250 ML IVPB SCH ×2 (13:46→23:20)
[2020-05-05] MEDS ORDERED: Meropenem 500 MG VIAL ONE (16:47)
[2020-05-05] MEDS: MEROPENEM 1 GM/50 ML 1 GM in Premix Bag 1 BAG IVPB SCH ×2 (17:30→20:16)
[2020-05-06] MEDS: oxyCODONE 5 MG TAB PO SCH ×7 (00:09→23:51)
[2020-05-06] MEDS: Acetaminophen 325 MG TAB PO PRN ×2 (00:10→08:42)
[2020-05-06 04:16] LABS: Hemoglobin 8.6 g/dL (12.0-15.5); Mean Corpuscular HGB CONC 31.4 g/dL (32.0-36.0); Mean Corpuscular Hemoglobin 30.5 pg (27.0-33.0); Mean Corpuscular Volume 97.2 fl (81.6-98.3); Mean Platelet Volume 10.1 fl (7.4-10.4); Platelet Count 239 10x3/uL (150-450); RBC Distribution Width 16.7 % (11.5-14.5); Red Blood Cell (RBC) Count 2.82 10x6/uL (3.90-5.03); White Blood Cell (WBC) Count 14.7 10x3/uL (3.5-10.5)
[2020-05-06 04:19] LABS: Phosphorus 3.3 mg/dL (2.3-4.7)
[2020-05-06 04:26] LABS: Actual Bicarbonate (HCO3a) 42.7 mEq/L (22-28); Base Excess (BEa) 16.9 mEq/L (-2.0 to +3.0); CO2 Tension 59.2 mmHg (35.0-45.0); Calcium, Ionized (arterial) 1.11 mmol/L (1.12-1.30); Carboxyhemoglobin (COHb) 0.2 gm% (0.0-3.0); Hemoglobin (Hb) 9.6 g/dL (12.0-16.0); O2 Tension (PaO2), arterial 78.1 mmHg (80.0-100.0); Potassium - ABG Lab 2.9 mmol/L (3.70-5.30); Puncture Site RRA; pH, Arterial 7.48 (7.35-7.45)
[2020-05-06 04:27] LABS: ALT (SGPT) 10 U/L (8-55); AST (SGOT) 17 U/L (5-34); Albumin 2.7 g/dL (3.5-5.0); Alkaline Phosphatase 109 U/L (40-110); BUN (Urea Nitrogen) 26 mg/dL (9.8-20.1); Bilirubin, Total 0.8 mg/dL (0.2-1.2); Calc. Creatinine Clearance 157 mL/min (70-130); Calcium 8.6 mg/dL (7.8-10.44); Globulin 3.9 g/dL (2.4-3.5); Glucose 118 mg/dL (70-105); Magnesium 1.8 mg/dL (1.6-2.6); Protein, Total 6.6 g/dL (6.0-8.3)
[2020-05-06 04:35] LABS: Anion Gap 19 mmol/L (10-20); Carbon Dioxide 38 mmol/L (22-29); Chloride 92 mmol/L (98-107); Sodium 146 mmol/L (136-145)
[2020-05-06] MEDS: MEROPENEM 1 GM/50 ML 1 GM in Premix Bag 1 BAG IVPB SCH ×3 (05:09→22:44)
[2020-05-06 06:49] LABS: MDiff Complete? YES
[2020-05-06 06:55] LABS: Band 8 % (5-11); Lymphocytes 4 % (21-51); Metamyelocyte 2 % (0-0); Monocytes 3 % (0-10); Myelocyte 2 % (0-0); Neutrophil 80 % (42-75)
[2020-05-06 06:56] LABS: Reactive Lymphocytes 1 % (0-10)
[2020-05-06 06:57] LABS: Ovalocytes SLIGHT = 2-5 cells (100X) (0-1/hpf); Platelet Morphology Comment Appears Adequate; Polychromasia SLIGHT = 2-3 cells (100X) (0-2/hpf)
[2020-05-06] MEDS: Budesonide 0.5 MG/2 ML NEB NEB SCH ×2 (07:00→19:50)
[2020-05-06] MEDS: Propofol 1,000 MG/100 ML VIAL IV PRN ×2 (08:19→14:30)
[2020-05-06] MEDS ORDERED: Potassium Bicarbonate/Cit Ac 20 MEQ TAB PO SCH (08:30)
[2020-05-06] MEDS ORDERED: Magnesium 2 GM/50 ML 2 GM in Premix Bag 1 BAG IVPB SCH (08:30)
[2020-05-06] MEDS: Cholecalciferol (Vitamin D3) 400 UNITS TAB PO SCH (08:41)
[2020-05-06] MEDS: Ascorbic Acid 500 mg Chewable Tablet PO SCH (08:41)
[2020-05-06] MEDS: Zinc Gluconate 50 MG TAB PO SCH (08:41)
[2020-05-06] MEDS: Furosemide 40 MG/4 ML VIAL SLOW IVP SCH ×3 (08:41→20:23)
[2020-05-06] MEDS: Metoprolol Tartrate 25 MG TAB PO SCH ×2 (08:41→20:24)
[2020-05-06] MEDS: Pantoprazole 40 MG GRANULES PACKET PO SCH (08:42)
[2020-05-06] MEDS: clonazePAM 1 MG TAB PO SCH ×3 (08:42→20:24)
[2020-05-06] MEDS: Enoxaparin Sodium 40 MG/0.4 ML SYRINGE SC SCH (08:45)
[2020-05-06] MEDS: Calcium Carbonate 600 MG TAB PO SCH (08:52)
[2020-05-06] MEDS: hydrALAZINE 25 MG TAB PO SCH ×3 (08:52→20:23)
[2020-05-06] MEDS: Vitamin E 400 UNITS CAP PO SCH (08:52)
[2020-05-06] MEDS ORDERED: Hydrocortisone Sod Succ/PF 100 mg/2 ml Vial IVP SCH (09:00)
[2020-05-06] MEDS: Hydrocortisone Sod Succ/PF 100 mg/2 ml Vial IVP SCH (09:29)
[2020-05-06] MEDS ORDERED: Vecuronium Bromide 50 MG in Sodium Chloride 0.9% 250 ML 250 ML IV SCH (11:00)
[2020-05-06] MEDS ORDERED: Vecuronium 10 MG VIAL IV PRN (11:18)
[2020-05-06 11:35] LABS: Vancomycin, Trough 16.6 ug/mL
[2020-05-06] MEDS: Micafungin 100 MG in Sodium Chloride 0.9% 100 ML IVPB SCH (12:44)
[2020-05-06] MEDS: Vancomycin HCl 1 GM in Sodium Chloride 0.9% 250 ML 250 ML IVPB SCH ×2 (12:44→23:50)
[2020-05-06] MEDS: Vecuronium Bromide 50 MG in Sodium Chloride 0.9% 250 ML 250 ML IV SCH (14:45)
[2020-05-06 16:41] LABS: Actual Bicarbonate (HCO3a) 42.7 mEq/L (22-28); Base Excess (BEa) 16.3 mEq/L (-2.0 to +3.0); CO2 Tension 64.2 mmHg (35.0-45.0); Carboxyhemoglobin (COHb) 0.2 gm% (0.0-3.0); Hemoglobin (Hb) 9.3 g/dL (12.0-16.0); Potassium - ABG Lab 3.4 mmol/L (3.70-5.30); Puncture Site LRA; pH, Arterial 7.44 (7.35-7.45)
[2020-05-06] MEDS: Fentanyl CADD 100 ML IV SCH (20:09)
[2020-05-07] MEDS: Propofol 1,000 MG/100 ML VIAL IV PRN ×4 (01:13→19:45)
[2020-05-07 04:07] LABS: Hemoglobin 8.8 g/dL (12.0-15.5); Mean Corpuscular HGB CONC 30.7 g/dL (32.0-36.0); Mean Corpuscular Hemoglobin 29.6 pg (27.0-33.0); Mean Corpuscular Volume 96.6 fl (81.6-98.3); Mean Platelet Volume 10.5 fl (7.4-10.4); Platelet Count 269 10x3/uL (150-450); RBC Distribution Width 16.7 % (11.5-14.5); Red Blood Cell (RBC) Count 2.97 10x6/uL (3.90-5.03); White Blood Cell (WBC) Count 13.5 10x3/uL (3.5-10.5)
[2020-05-07 04:12] LABS: BUN (Urea Nitrogen) 25 mg/dL (9.8-20.1); Calc. Creatinine Clearance 152 mL/min (70-130); Calcium 8.8 mg/dL (7.8-10.44); Glucose 113 mg/dL (70-105); Magnesium 2.2 mg/dL (1.6-2.6)
[2020-05-07] MEDS: oxyCODONE 5 MG TAB PO SCH ×5 (04:14→19:46)
[2020-05-07] MEDS: Vecuronium Bromide 50 MG in Sodium Chloride 0.9% 250 ML 250 ML IV SCH (04:14)
[2020-05-07 04:19] LABS: Anion Gap 18 mmol/L (10-20); Carbon Dioxide 37 mmol/L (22-29); Chloride 91 mmol/L (98-107); Potassium 3.1 mmol/L (3.5-5.1); Sodium 143 mmol/L (136-145)
[2020-05-07 04:21] LABS: MDiff Complete? YES
[2020-05-07 04:26] LABS: Anisocytosis MODERATE=16-30 cells (100X) (0-5/hpf); Band 13 % (5-11); Eosinophils 1 % (0-10); Lymphocytes 5 % (21-51); Monocytes 4 % (0-10); Neutrophil 77 % (42-75)
[2020-05-07 04:27] LABS: Hypochromia SLIGHT = 6-15 cells (100X) (0-5/hpf); Poikilocytosis MODERATE=16-30 cells (100X) (0-5/hpf); Polychromasia SLIGHT = 2-3 cells (100X) (0-2/hpf)
[2020-05-07 04:29] LABS: Platelet Morphology Comment Appears Adequate; Stomatocytes SLIGHT = 2-5 cells (100X) (0-1/hpf)
[2020-05-07] MEDS: MEROPENEM 1 GM/50 ML 1 GM in Premix Bag 1 BAG IVPB SCH ×3 (05:22→19:45)
[2020-05-07] MEDS: Budesonide 0.5 MG/2 ML NEB NEB SCH ×2 (07:01→19:46)
[2020-05-07] MEDS: Ascorbic Acid 500 mg Chewable Tablet PO SCH (09:00)
[2020-05-07] MEDS: Vitamin E 400 UNITS CAP PO SCH (09:00)
[2020-05-07] MEDS: Furosemide 40 MG/4 ML VIAL SLOW IVP SCH ×3 (09:00→19:46)
[2020-05-07] MEDS: Zinc Gluconate 50 MG TAB PO SCH (09:00)
[2020-05-07] MEDS: Metoprolol Tartrate 25 MG TAB PO SCH ×2 (09:00→19:46)
[2020-05-07] MEDS: hydrALAZINE 25 MG TAB PO SCH ×3 (09:00→19:47)
[2020-05-07] MEDS: Potassium Bicarbonate/Cit Ac 20 MEQ TAB PO SCH ×2 (09:00→12:22)
[2020-05-07] MEDS: clonazePAM 1 MG TAB PO SCH ×3 (09:00→19:46)
[2020-05-07] MEDS: Cholecalciferol (Vitamin D3) 400 UNITS TAB PO SCH (09:00)
[2020-05-07] MEDS: Enoxaparin Sodium 40 MG/0.4 ML SYRINGE SC SCH (09:00)
[2020-05-07] MEDS: Pantoprazole 40 MG GRANULES PACKET PO SCH (09:00)
[2020-05-07] MEDS: Calcium Carbonate 600 MG TAB PO SCH (09:00)
[2020-05-07] MEDS: Hydrocortisone Sod Succ/PF 100 mg/2 ml Vial IVP SCH (10:39)
[2020-05-07] MEDS: Micafungin 100 MG in Sodium Chloride 0.9% 100 ML IVPB SCH (11:00)
[2020-05-07] MEDS: Vancomycin HCl 1 GM in Sodium Chloride 0.9% 250 ML 250 ML IVPB SCH (12:44)
[2020-05-07 13:37] LABS: Actual Bicarbonate (HCO3a) 44.5 mEq/L (22-28); Base Excess (BEa) 18.5 mEq/L (-2.0 to +3.0); CO2 Tension 61.4 mmHg (35.0-45.0); Carboxyhemoglobin (COHb) 0.5 gm% (0.0-3.0); Hemoglobin (Hb) 9.4 g/dL (12.0-16.0); O2 Tension (PaO2), arterial 71.7 mmHg (80.0-100.0); Potassium - ABG Lab 5.1 mmol/L (3.70-5.30); Puncture Site RBA; RapidComm Collect By AR; pH, Arterial 7.48 (7.35-7.45)
[2020-05-07] MEDS: Fentanyl CADD 100 ML IV SCH (19:14)
[2020-05-07 23:19] LABS: ALV-art Gradient 376.975 mmHg (0-20); Actual Bicarbonate (HCO3a) 41.9 mEq/L (22-28); Base Excess (BEa) 17.1 mEq/L (-2.0 to +3.0); CO2 Tension 52.9 mmHg (35.0-45.0); Calcium, Ionized (arterial) 1.13 mmol/L (1.12-1.30); Carboxyhemoglobin (COHb) 0.8 gm% (0.0-3.0); Hemoglobin (Hb) 8.8 g/dL (12.0-16.0); Potassium - ABG Lab 3.6 mmol/L (3.70-5.30); Puncture Site RBA; pH, Arterial 7.52 (7.35-7.45)
[2020-05-08] MEDS: Vancomycin HCl 1 GM in Sodium Chloride 0.9% 250 ML 250 ML IVPB SCH ×2 (00:22→11:03)
[2020-05-08] MEDS: oxyCODONE 5 MG TAB PO SCH ×6 (00:22→21:14)
[2020-05-08 04:05] LABS: #Eosinphils 0.2 10x3/uL (0.0-0.5); #Monocytes 0.4 10x3/uL (0.0-1.1); #Neutrophils 11.5 10x3/uL (1.5-8.4); %Basophils 0.3 % (0.0-2.0); %Eosinophils 1.7 % (0.0-6.0); %Lymphocytes 7.6 % (18.0-47.0); %Monocytes 2.9 % (0.0-10.0); %Neutrophils 84.7 % (40.0-75.0); Hemoglobin 8.3 g/dL (12.0-15.5); Mean Corpuscular HGB CONC 30.2 g/dL (32.0-36.0); Mean Corpuscular Hemoglobin 29.6 pg (27.0-33.0); Mean Corpuscular Volume 98.2 fl (81.6-98.3); Mean Platelet Volume 10.3 fl (7.4-10.4); Platelet Count 287 10x3/uL (150-450); RBC Distribution Width 16.5 % (11.5-14.5); White Blood Cell (WBC) Count 13.6 10x3/uL (3.5-10.5)
[2020-05-08 04:21] LABS: ALT (SGPT) 8 U/L (8-55); AST (SGOT) 21 U/L (5-34); Albumin 2.6 g/dL (3.5-5.0); Alkaline Phosphatase 100 U/L (40-110); BUN (Urea Nitrogen) 30 mg/dL (9.8-20.1); Bilirubin, Total 0.8 mg/dL (0.2-1.2); Calc. Creatinine Clearance 152 mL/min (70-130); Globulin 3.9 g/dL (2.4-3.5); Glucose 85 mg/dL (70-105); Magnesium 2.2 mg/dL (1.6-2.6); Protein, Total 6.5 g/dL (6.0-8.3)
[2020-05-08 04:29] LABS: Anion Gap 16 mmol/L (10-20); Carbon Dioxide 40 mmol/L (22-29); Chloride 94 mmol/L (98-107); Potassium 3.7 mmol/L (3.5-5.1); Sodium 146 mmol/L (136-145)
[2020-05-08 04:38] LABS: Phosphorus 2.3 mg/dL (2.3-4.7)
[2020-05-08] MEDS: MEROPENEM 1 GM/50 ML 1 GM in Premix Bag 1 BAG IVPB SCH ×3 (06:33→21:13)
[2020-05-08] MEDS: Albuterol Sulfate 2.5 mg/3 ml Neb NEB PRN (08:07)
[2020-05-08] MEDS: Budesonide 0.5 MG/2 ML NEB NEB SCH ×2 (08:08→18:46)
[2020-05-08] MEDS: hydrALAZINE 25 MG TAB PO SCH ×3 (08:17→21:14)
[2020-05-08] MEDS: Zinc Gluconate 50 MG TAB PO SCH (08:17)
[2020-05-08] MEDS: Ascorbic Acid 500 mg Chewable Tablet PO SCH (08:17)
[2020-05-08] MEDS: Enoxaparin Sodium 40 MG/0.4 ML SYRINGE SC SCH (08:17)
[2020-05-08] MEDS: Vitamin E 400 UNITS CAP PO SCH (08:18)
[2020-05-08] MEDS: Cholecalciferol (Vitamin D3) 400 UNITS TAB PO SCH (08:18)
[2020-05-08] MEDS: clonazePAM 1 MG TAB PO SCH ×3 (08:18→21:14)
[2020-05-08] MEDS: Calcium Carbonate 600 MG TAB PO SCH (08:18)
[2020-05-08] MEDS: Metoprolol Tartrate 25 MG TAB PO SCH ×2 (08:18→21:15)
[2020-05-08] MEDS: Furosemide 40 MG/4 ML VIAL SLOW IVP SCH ×3 (08:19→21:15)
[2020-05-08] MEDS: Pantoprazole 40 MG GRANULES PACKET PO SCH (08:19)
[2020-05-08] MEDS: Hydrocortisone Sod Succ/PF 100 mg/2 ml Vial IVP SCH (08:19)
[2020-05-08] MEDS: Propofol 1,000 MG/100 ML VIAL IV PRN ×2 (08:40→16:58)
[2020-05-08] MEDS: Micafungin 100 MG in Sodium Chloride 0.9% 100 ML IVPB SCH (11:03)
[2020-05-08 11:37] LABS: Actual Bicarbonate (HCO3a) 43.8 mEq/L (22-28); Base Excess (BEa) 16.8 mEq/L (-2.0 to +3.0); CO2 Tension 67.9 mmHg (35.0-45.0); Calcium, Ionized (arterial) 1.13 mmol/L (1.12-1.30); Carboxyhemoglobin (COHb) 0.5 gm% (0.0-3.0); Hemoglobin (Hb) 9.9 g/dL (12.0-16.0); Potassium - ABG Lab 3.5 mmol/L (3.70-5.30); Puncture Site RRA; pH, Arterial 7.43 (7.35-7.45)
[2020-05-08 11:40] LABS: ALV-art Gradient 416.525 mmHg (0-20)
[2020-05-08] MEDS: Fentanyl CADD 100 ML IV SCH (16:58)
[2020-05-09] MEDS: Propofol 1,000 MG/100 ML VIAL IV PRN ×2 (00:32→19:36)
[2020-05-09] MEDS: oxyCODONE 5 MG TAB PO SCH ×6 (00:32→21:10)
[2020-05-09] MEDS: Vancomycin HCl 1 GM in Sodium Chloride 0.9% 250 ML 250 ML IVPB SCH ×3 (00:35→23:32)
[2020-05-09] MEDS: Budesonide 0.5 MG/2 ML NEB NEB SCH ×2 (06:55→19:03)
[2020-05-09] MEDS: Metoprolol Tartrate 25 MG TAB PO SCH ×2 (08:02→21:10)
[2020-05-09] MEDS: hydrALAZINE 25 MG TAB PO SCH ×3 (08:04→21:10)
[2020-05-09] MEDS: Fentanyl CADD 100 ML IV SCH (08:04)
[2020-05-09] MEDS: Pantoprazole 40 MG GRANULES PACKET PO SCH (08:05)
[2020-05-09] MEDS: Hydrocortisone Sod Succ/PF 100 mg/2 ml Vial IVP SCH (08:05)
[2020-05-09] MEDS: Furosemide 40 MG/4 ML VIAL SLOW IVP SCH ×3 (08:05→21:10)
[2020-05-09] MEDS: Ascorbic Acid 500 mg Chewable Tablet PO SCH (08:05)
[2020-05-09] MEDS: Cholecalciferol (Vitamin D3) 400 UNITS TAB PO SCH (08:07)
[2020-05-09] MEDS: Enoxaparin Sodium 40 MG/0.4 ML SYRINGE SC SCH (08:07)
[2020-05-09] MEDS: Calcium Carbonate 600 MG TAB PO SCH (08:07)
[2020-05-09] MEDS: Vitamin E 400 UNITS CAP PO SCH (08:07)
[2020-05-09] MEDS: Zinc Gluconate 50 MG TAB PO SCH (08:07)
[2020-05-09] MEDS: clonazePAM 1 MG TAB PO SCH ×3 (08:07→21:11)
[2020-05-09] MEDS: Acetaminophen 325 MG TAB PO PRN (08:12)
[2020-05-09 11:26] LABS: Base Excess (BEa) 12.4 mEq/L (-2.0 to +3.0); CO2 Tension 48.9 mmHg (35.0-45.0); Carboxyhemoglobin (COHb) 0.7 gm% (0.0-3.0); Hemoglobin (Hb) 9.5 g/dL (12.0-16.0); O2 Tension (PaO2), arterial 74.1 mmHg (80.0-100.0); Puncture Site RRA
[2020-05-09 11:29] LABS: ALV-art Gradient 363.875 mmHg (0-20)
[2020-05-09 11:37] LABS: Vancomycin, Trough 18.4 ug/mL
[2020-05-09] MEDS: MEROPENEM 1 GM/50 ML 1 GM in Premix Bag 1 BAG IVPB SCH ×3 (13:47→21:17)
[2020-05-10] MEDS: oxyCODONE 5 MG TAB PO SCH ×6 (00:45→20:24)
[2020-05-10] MEDS: Fentanyl CADD 100 ML IV SCH (03:32)
[2020-05-10] MEDS: MEROPENEM 1 GM/50 ML 1 GM in Premix Bag 1 BAG IVPB SCH ×3 (05:40→21:38)
[2020-05-10 05:41] LABS: ALT (SGPT) 9 U/L (8-55); AST (SGOT) 21 U/L (5-34); Albumin 2.5 g/dL (3.5-5.0); Alkaline Phosphatase 91 U/L (40-110); BUN (Urea Nitrogen) 27 mg/dL (9.8-20.1); Bilirubin, Total 0.9 mg/dL (0.2-1.2); Calc. Creatinine Clearance 149 mL/min (70-130); Calcium 8.7 mg/dL (7.8-10.44); Globulin 4.2 g/dL (2.4-3.5); Glucose 112 mg/dL (70-105); Magnesium 1.9 mg/dL (1.6-2.6); Phosphorus 2.8 mg/dL (2.3-4.7); Protein, Total 6.7 g/dL (6.0-8.3)
[2020-05-10 05:50] LABS: #Eosinphils 0.2 10x3/uL (0.0-0.5); #Monocytes 0.7 10x3/uL (0.0-1.1); #Neutrophils 9.8 10x3/uL (1.5-8.4); %Basophils 0.3 % (0.0-2.0); %Eosinophils 1.6 % (0.0-6.0); %Lymphocytes 7.4 % (18.0-47.0); %Monocytes 5.5 % (0.0-10.0); %Neutrophils 83.3 % (40.0-75.0); Anion Gap 17 mmol/L (10-20); Carbon Dioxide 38 mmol/L (22-29); Chloride 92 mmol/L (98-107); Mean Corpuscular HGB CONC 30.7 g/dL (32.0-36.0); Mean Corpuscular Hemoglobin 30.1 pg (27.0-33.0); Mean Corpuscular Volume 98.1 fl (81.6-98.3); Mean Platelet Volume 10.4 fl (7.4-10.4); Platelet Count 322 10x3/uL (150-450); RBC Distribution Width 16.3 % (11.5-14.5); Red Blood Cell (RBC) Count 2.66 10x6/uL (3.90-5.03); Sodium 144 mmol/L (136-145); White Blood Cell (WBC) Count 11.8 10x3/uL (3.5-10.5)
[2020-05-10 06:01] LABS: Potassium 2.7 mmol/L (3.5-5.1)
[2020-05-10] MEDS: Budesonide 0.5 MG/2 ML NEB NEB SCH ×2 (06:51→20:10)
[2020-05-10] MEDS: Enoxaparin Sodium 40 MG/0.4 ML SYRINGE SC SCH (08:23)
[2020-05-10] MEDS: Calcium Carbonate 600 MG TAB PO SCH (08:23)
[2020-05-10] MEDS: Furosemide 40 MG/4 ML VIAL SLOW IVP SCH ×3 (08:23→20:21)
[2020-05-10] MEDS: Zinc Gluconate 50 MG TAB PO SCH (08:24)
[2020-05-10] MEDS: Cholecalciferol (Vitamin D3) 400 UNITS TAB PO SCH (08:24)
[2020-05-10] MEDS: Metoprolol Tartrate 25 MG TAB PO SCH ×2 (08:24→20:23)
[2020-05-10] MEDS: Ascorbic Acid 500 mg Chewable Tablet PO SCH (08:24)
[2020-05-10] MEDS: Vitamin E 400 UNITS CAP PO SCH (08:25)
[2020-05-10] MEDS: clonazePAM 1 MG TAB PO SCH ×3 (08:25→20:23)
[2020-05-10] MEDS: hydrALAZINE 25 MG TAB PO SCH ×3 (08:25→20:22)
[2020-05-10] MEDS: Pantoprazole 40 MG GRANULES PACKET PO SCH (08:25)
[2020-05-10] MEDS: Vancomycin HCl 1 GM in Sodium Chloride 0.9% 250 ML 250 ML IVPB SCH (11:29)
[2020-05-10] MEDS ORDERED: Magnesium 2 GM/50 ML 2 GM in Premix Bag 1 BAG IVPB SCH (13:30)
[2020-05-10] MEDS: Potassium Chloride 20 MEQ in Premix Bag 1 BAG IVPB SCH ×4 (13:40→20:24)
[2020-05-10] MEDS: Propofol 1,000 MG/100 ML VIAL IV PRN (15:20)
[2020-05-10] MEDS: Acetaminophen 325 MG TAB PO PRN (16:10)
[2020-05-11] MEDS: Vancomycin HCl 1 GM in Sodium Chloride 0.9% 250 ML 250 ML IVPB SCH (00:05)
[2020-05-11] MEDS: oxyCODONE 5 MG TAB PO SCH ×6 (00:06→20:22)
[2020-05-11 00:48] LABS: Anion Gap 18 mmol/L (10-20)
[2020-05-11 00:59] LABS: Potassium 4.1 mmol/L (3.5-5.1)
[2020-05-11 01:01] LABS: BUN (Urea Nitrogen) 35 mg/dL (9.8-20.1); Calc. Creatinine Clearance 129 mL/min (70-130); Calcium 8.6 mg/dL (7.8-10.44); Carbon Dioxide 36 mmol/L (22-29); Chloride 93 mmol/L (98-107); Glucose 123 mg/dL (70-105); Sodium 144 mmol/L (136-145)
[2020-05-11] MEDS: Fentanyl CADD 100 ML IV SCH (01:40)
[2020-05-11 04:43] LABS: Base Excess (BEa) 17.6 mEq/L (-2.0 to +3.0); Calcium, Ionized (arterial) 1.11 mmol/L (1.12-1.30); Carboxyhemoglobin (COHb) 0.8 gm% (0.0-3.0); O2 Tension (PaO2), arterial 108.3 mmHg (80.0-100.0); Potassium - ABG Lab 3.2 mmol/L (3.70-5.30); Puncture Site RRA; pH, Arterial 7.44 (7.35-7.45)
[2020-05-11] MEDS: MEROPENEM 1 GM/50 ML 1 GM in Premix Bag 1 BAG IVPB SCH (05:00)
[2020-05-11 05:18] LABS: ALT (SGPT) 11 U/L (8-55); Albumin 2.5 g/dL (3.5-5.0); Alkaline Phosphatase 99 U/L (40-110); BUN (Urea Nitrogen) 37 mg/dL (9.8-20.1); Calc. Creatinine Clearance 121 mL/min (70-130); Calcium 8.6 mg/dL (7.8-10.44); Globulin 4.8 g/dL (2.4-3.5); Glucose 126 mg/dL (70-105); Protein, Total 7.3 g/dL (6.0-8.3)
[2020-05-11 05:27] LABS: AST (SGOT) 29 U/L (5-34); Magnesium 2.4 mg/dL (1.6-2.6); Phosphorus 3.3 mg/dL (2.3-4.7)
[2020-05-11 05:39] LABS: Anion Gap 22 mmol/L (10-20); Carbon Dioxide 31 mmol/L (22-29); Chloride 94 mmol/L (98-107); Potassium 4.4 mmol/L (3.5-5.1); Sodium 143 mmol/L (136-145)
[2020-05-11 05:47] LABS: Hemoglobin 8.5 g/dL (12.0-15.5); Mean Corpuscular HGB CONC 31.1 g/dL (32.0-36.0); Mean Corpuscular Hemoglobin 30.1 pg (27.0-33.0); Mean Corpuscular Volume 96.8 fl (81.6-98.3); Mean Platelet Volume 10.9 fl (7.4-10.4); Platelet Count 343 10x3/uL (150-450); RBC Distribution Width 16.7 % (11.5-14.5); Red Blood Cell (RBC) Count 2.82 10x6/uL (3.90-5.03); White Blood Cell (WBC) Count 14.6 10x3/uL (3.5-10.5)
[2020-05-11] MEDS: Budesonide 0.5 MG/2 ML NEB NEB SCH ×2 (07:14→19:25)
[2020-05-11] MEDS: Cholecalciferol (Vitamin D3) 400 UNITS TAB PO SCH (08:08)
[2020-05-11] MEDS: Pantoprazole 40 MG GRANULES PACKET PO SCH (08:08)
[2020-05-11] MEDS: Enoxaparin Sodium 40 MG/0.4 ML SYRINGE SC SCH (08:08)
[2020-05-11] MEDS: hydrALAZINE 25 MG TAB PO SCH ×3 (08:08→20:21)
[2020-05-11] MEDS: Calcium Carbonate 600 MG TAB PO SCH (08:08)
[2020-05-11] MEDS: Furosemide 40 MG/4 ML VIAL SLOW IVP SCH ×3 (08:08→20:21)
[2020-05-11] MEDS: Zinc Gluconate 50 MG TAB PO SCH (08:09)
[2020-05-11] MEDS: Vitamin E 400 UNITS CAP PO SCH (08:09)
[2020-05-11] MEDS: clonazePAM 1 MG TAB PO SCH ×3 (08:09→20:22)
[2020-05-11] MEDS: Ascorbic Acid 500 mg Chewable Tablet PO SCH (08:09)
[2020-05-11 08:14] LABS: Eosinophils 2 % (0-10); Lymphocytes 7 % (21-51); Monocytes 12 % (0-10); Reactive Lymphocytes 1 % (0-10)
[2020-05-11 08:15] LABS: Band 8 % (5-11); Neutrophil 68 % (42-75)
[2020-05-11 08:16] LABS: Metamyelocyte 1 % (0-0); Myelocyte 1 % (0-0)
[2020-05-11 08:17] LABS: Anisocytosis SLIGHT = 6-15 cells (100X) (0-5/hpf); Microcytosis SLIGHT = 6-15 cells (100X) (0-5/hpf)
[2020-05-11 08:18] LABS: Platelet Clumps MODERATE
[2020-05-11 08:19] LABS: Platelet Morphology Comment Appears Adequate
[2020-05-11 08:20] LABS: MDiff Complete? YES; Manual Diff?? YES
[2020-05-11] MEDS: Metoprolol Tartrate 50 MG TAB PO SCH ×2 (09:38→20:22)
[2020-05-11 11:11] LABS: Vancomycin, Trough 22.5 ug/mL
[2020-05-11] MEDS: Meropenem 500 MG in Sodium Chloride 0.9% 100 ML IVPB SCH ×3 (11:57→23:52)
[2020-05-11] MEDS: Vancomycin HCl 750 MG in Sodium Chloride 0.9% 250 ML 250 ML IVPB SCH (14:14)
[2020-05-11] MEDS: Propofol 1,000 MG/100 ML VIAL IV PRN (19:50)
[2020-05-11] MEDS: Acetaminophen 325 MG TAB PO PRN (21:56)
[2020-05-12] MEDS: oxyCODONE 5 MG TAB PO SCH ×6 (00:50→21:35)
[2020-05-12] MEDS: Vancomycin HCl 750 MG in Sodium Chloride 0.9% 250 ML 250 ML IVPB SCH ×2 (03:00→14:20)
[2020-05-12] MEDS: Meropenem 500 MG in Sodium Chloride 0.9% 100 ML IVPB SCH ×4 (05:02→23:38)
[2020-05-12 05:10] LABS: BUN (Urea Nitrogen) 38 mg/dL (9.8-20.1); Calc. Creatinine Clearance 147 mL/min (70-130)
[2020-05-12] MEDS: Budesonide 0.5 MG/2 ML NEB NEB SCH ×2 (07:59→19:00)
[2020-05-12] MEDS: Calcium Carbonate 600 MG TAB PO SCH (08:02)
[2020-05-12] MEDS: Ascorbic Acid 500 mg Chewable Tablet PO SCH (08:02)
[2020-05-12] MEDS: Furosemide 40 MG/4 ML VIAL SLOW IVP SCH ×3 (08:02→21:34)
[2020-05-12] MEDS: Zinc Gluconate 50 MG TAB PO SCH (08:02)
[2020-05-12] MEDS: Metoprolol Tartrate 50 MG TAB PO SCH ×2 (08:02→21:35)
[2020-05-12] MEDS: clonazePAM 1 MG TAB PO SCH ×3 (08:02→21:34)
[2020-05-12] MEDS: Enoxaparin Sodium 40 MG/0.4 ML SYRINGE SC SCH (08:02)
[2020-05-12] MEDS: Cholecalciferol (Vitamin D3) 400 UNITS TAB PO SCH (08:03)
[2020-05-12] MEDS: Pantoprazole 40 MG GRANULES PACKET PO SCH (08:03)
[2020-05-12] MEDS: Vitamin E 400 UNITS CAP PO SCH (08:04)
[2020-05-12] MEDS: hydrALAZINE 25 MG TAB PO SCH ×3 (10:55→21:34)
[2020-05-12 18:58] LABS: Actual Bicarbonate (HCO3a) 47.5 mEq/L (22-28); Base Excess (BEa) 21.1 mEq/L (-2.0 to +3.0); CO2 Tension 65.5 mmHg (35.0-45.0); Calcium, Ionized (arterial) 1.08 mmol/L (1.12-1.30); Carboxyhemoglobin (COHb) 1.1 gm% (0.0-3.0); Hemoglobin (Hb) 9.5 g/dL (12.0-16.0); O2 Tension (PaO2), arterial 57.8 mmHg (80.0-100.0); Potassium - ABG Lab 2.7 mmol/L (3.70-5.30); Puncture Site RRA; pH, Arterial 7.48 (7.35-7.45)
[2020-05-12 19:02] LABS: ALV-art Gradient 10.055 mmHg (0-20)
[2020-05-13] MEDS: oxyCODONE 5 MG TAB PO SCH ×6 (00:35→21:24)
[2020-05-13] MEDS: Vancomycin HCl 750 MG in Sodium Chloride 0.9% 250 ML 250 ML IVPB SCH ×2 (02:10→14:22)
[2020-05-13 04:48] LABS: #Basophils 0.1 10x3/uL (0.0-0.2); #Eosinphils 0.2 10x3/uL (0.0-0.5); #Monocytes 0.8 10x3/uL (0.0-1.1); #Neutrophils 11.3 10x3/uL (1.5-8.4); %Basophils 0.5 % (0.0-2.0); %Eosinophils 1.1 % (0.0-6.0); %Lymphocytes 4.8 % (18.0-47.0); %Monocytes 5.7 % (0.0-10.0); %Neutrophils 83.8 % (40.0-75.0); Hemoglobin 8.4 g/dL (12.0-15.5); Mean Corpuscular HGB CONC 30.5 g/dL (32.0-36.0); Mean Corpuscular Hemoglobin 30.1 pg (27.0-33.0); Mean Corpuscular Volume 98.6 fl (81.6-98.3); Mean Platelet Volume 10.5 fl (7.4-10.4); Platelet Count 493 10x3/uL (150-450); RBC Distribution Width 16.8 % (11.5-14.5); Red Blood Cell (RBC) Count 2.79 10x6/uL (3.90-5.03); White Blood Cell (WBC) Count 13.5 10x3/uL (3.5-10.5)
[2020-05-13 05:07] LABS: Phosphorus 2.7 mg/dL (2.3-4.7)
[2020-05-13 05:11] LABS: ALT (SGPT) 10 U/L (8-55); AST (SGOT) 19 U/L (5-34); Albumin 2.8 g/dL (3.5-5.0); Alkaline Phosphatase 107 U/L (40-110); BUN (Urea Nitrogen) 35 mg/dL (9.8-20.1); Bilirubin, Total 0.8 mg/dL (0.2-1.2); Calc. Creatinine Clearance 132 mL/min (70-130); Calcium 8.9 mg/dL (7.8-10.44); Globulin 4.7 g/dL (2.4-3.5); Glucose 184 mg/dL (70-105); Protein, Total 7.5 g/dL (6.0-8.3)
[2020-05-13 05:18] LABS: Anion Gap 16 mmol/L (10-20); Carbon Dioxide 39 mmol/L (22-29); Chloride 91 mmol/L (98-107); Sodium 143 mmol/L (136-145)
[2020-05-13 05:21] LABS: Potassium 2.7 mmol/L (3.5-5.1)
[2020-05-13] MEDS: Meropenem 500 MG in Sodium Chloride 0.9% 100 ML IVPB SCH ×3 (05:38→17:03)
[2020-05-13] MEDS: Potassium Chloride 20 MEQ TAB PER TUBE SCH ×2 (05:39→08:49)
[2020-05-13] MEDS: Budesonide 0.5 MG/2 ML NEB NEB SCH ×2 (07:24→19:23)
[2020-05-13] MEDS: clonazePAM 1 MG TAB PO SCH ×3 (08:47→21:26)
[2020-05-13] MEDS: Furosemide 40 MG/4 ML VIAL SLOW IVP SCH ×3 (08:48→21:24)
[2020-05-13] MEDS: hydrALAZINE 25 MG TAB PO SCH ×3 (08:48→21:25)
[2020-05-13] MEDS: Enoxaparin Sodium 40 MG/0.4 ML SYRINGE SC SCH (08:48)
[2020-05-13] MEDS: Ascorbic Acid 500 mg Chewable Tablet PO SCH (08:49)
[2020-05-13] MEDS: Zinc Gluconate 50 MG TAB PO SCH (08:49)
[2020-05-13] MEDS: Calcium Carbonate 600 MG TAB PO SCH (08:49)
[2020-05-13] MEDS: Vitamin E 400 UNITS CAP PO SCH (08:49)
[2020-05-13] MEDS: Metoprolol Tartrate 50 MG TAB PO SCH ×2 (08:49→21:25)
[2020-05-13] MEDS: Cholecalciferol (Vitamin D3) 400 UNITS TAB PO SCH (08:50)
[2020-05-13] MEDS: Pantoprazole 40 MG GRANULES PACKET PO SCH (08:50)
[2020-05-13 14:00] LABS: Vancomycin, Trough 16.9 ug/mL
[2020-05-13 15:12] LABS: BUN (Urea Nitrogen) 33 mg/dL (9.8-20.1); Calc. Creatinine Clearance 136 mL/min (70-130); Glucose 173 mg/dL (70-105)
[2020-05-13 15:18] LABS: Chloride 92 mmol/L (98-107); Potassium 3.2 mmol/L (3.5-5.1); Sodium 144 mmol/L (136-145)
[2020-05-13 15:19] LABS: Anion Gap 14 mmol/L (10-20)
[2020-05-13] MEDS ORDERED: Potassium Chloride 20 MEQ TAB PO SCH (15:30)
[2020-05-13 15:42] LABS: Carbon Dioxide 41 mmol/L (22-29)
[2020-05-13] MEDS ORDERED: Potassium Bicarbonate/Cit Ac 20 MEQ TAB PO SCH (15:45)
[2020-05-13] MEDS ORDERED: Magnesium 2 GM/50 ML 2 GM in Premix Bag 1 BAG IVPB SCH (21:00)
[2020-05-13] MEDS: Potassium Chloride 20 MEQ in Premix Bag 1 BAG IVPB SCH (21:29)
[2020-05-13] MEDS ORDERED: Midazolam HCl 2 mg/2 ml Vial SLOW IVP PRN (21:47)
[2020-05-14] MEDS: oxyCODONE 5 MG TAB PO SCH ×6 (00:39→20:17)
[2020-05-14] MEDS: Potassium Chloride 20 MEQ in Premix Bag 1 BAG IVPB SCH (00:40)
[2020-05-14 04:22] LABS: BUN (Urea Nitrogen) 33 mg/dL (9.8-20.1); Calc. Creatinine Clearance 144 mL/min (70-130); Calcium 8.7 mg/dL (7.8-10.44); Glucose 125 mg/dL (70-105); Magnesium 2.2 mg/dL (1.6-2.6)
[2020-05-14 04:37] LABS: Anion Gap 15 mmol/L (10-20); Chloride 95 mmol/L (98-107); Sodium 147 mmol/L (136-145)
[2020-05-14 04:45] LABS: Carbon Dioxide 41 mmol/L (22-29)
[2020-05-14] MEDS: clonazePAM 1 MG TAB PO SCH ×3 (05:39→20:18)
[2020-05-14] MEDS: Budesonide 0.5 MG/2 ML NEB NEB SCH ×2 (07:01→19:38)
[2020-05-14] MEDS: Pantoprazole 40 MG GRANULES PACKET PO SCH (08:22)
[2020-05-14] MEDS: Enoxaparin Sodium 40 MG/0.4 ML SYRINGE SC SCH (08:22)
[2020-05-14] MEDS: Furosemide 40 MG/4 ML VIAL SLOW IVP SCH (08:22)
[2020-05-14] MEDS: Calcium Carbonate 600 MG TAB PO SCH (08:23)
[2020-05-14] MEDS: Metoprolol Tartrate 50 MG TAB PO SCH ×2 (08:23→20:18)
[2020-05-14] MEDS: Cholecalciferol (Vitamin D3) 400 UNITS TAB PO SCH (08:23)
[2020-05-14] MEDS: Ascorbic Acid 500 mg Chewable Tablet PO SCH (08:23)
[2020-05-14] MEDS: Vitamin E 400 UNITS CAP PO SCH (08:23)
[2020-05-14] MEDS: hydrALAZINE 25 MG TAB PO SCH ×3 (08:23→20:17)
[2020-05-14] MEDS: Zinc Gluconate 50 MG TAB PO SCH (08:23)
[2020-05-15] MEDS: oxyCODONE 5 MG TAB PO SCH ×6 (00:37→20:45)
[2020-05-15] MEDS: clonazePAM 1 MG TAB PO SCH ×3 (04:51→21:45)
[2020-05-15] MEDS: Budesonide 0.5 MG/2 ML NEB NEB SCH ×2 (07:05→19:26)
[2020-05-15] MEDS: Enoxaparin Sodium 40 MG/0.4 ML SYRINGE SC SCH (08:16)
[2020-05-15] MEDS: Vitamin E 400 UNITS CAP PO SCH (08:16)
[2020-05-15] MEDS: Cholecalciferol (Vitamin D3) 400 UNITS TAB PO SCH (08:17)
[2020-05-15] MEDS: Calcium Carbonate 600 MG TAB PO SCH (08:17)
[2020-05-15] MEDS: Metoprolol Tartrate 50 MG TAB PO SCH ×2 (08:17→20:46)
[2020-05-15] MEDS: Zinc Gluconate 50 MG TAB PO SCH (08:17)
[2020-05-15] MEDS: hydrALAZINE 25 MG TAB PO SCH ×3 (08:17→20:46)
[2020-05-15] MEDS: Pantoprazole 40 MG GRANULES PACKET PO SCH (08:18)
[2020-05-15] MEDS: Ascorbic Acid 500 mg Chewable Tablet PO SCH (08:18)
[2020-05-15 10:51] LABS: ALT (SGPT) 18 U/L (8-55); AST (SGOT) 33 U/L (5-34); Albumin 2.5 g/dL (3.5-5.0); Alkaline Phosphatase 106 U/L (40-110); BUN (Urea Nitrogen) 39 mg/dL (9.8-20.1); Bilirubin, Total 0.9 mg/dL (0.2-1.2); Calc. Creatinine Clearance 143 mL/min (70-130); Globulin 4.1 g/dL (2.4-3.5); Glucose 140 mg/dL (70-105); Phosphorus 3.8 mg/dL (2.3-4.7); Protein, Total 6.6 g/dL (6.0-8.3)
[2020-05-15 10:55] LABS: #Eosinphils 0.2 10x3/uL (0.0-0.5); #Monocytes 0.8 10x3/uL (0.0-1.1); #Neutrophils 9.5 10x3/uL (1.5-8.4); %Basophils 0.3 % (0.0-2.0); %Eosinophils 1.5 % (0.0-6.0); %Lymphocytes 6.7 % (18.0-47.0); %Neutrophils 81.3 % (40.0-75.0); Hemoglobin 7.4 g/dL (12.0-15.5); Mean Corpuscular HGB CONC 30.2 g/dL (32.0-36.0); Mean Corpuscular Hemoglobin 30.1 pg (27.0-33.0); Mean Corpuscular Volume 99.6 fl (81.6-98.3); Mean Platelet Volume 10.2 fl (7.4-10.4); Platelet Count 390 10x3/uL (150-450); RBC Distribution Width 18.5 % (11.5-14.5); Red Blood Cell (RBC) Count 2.46 10x6/uL (3.90-5.03); White Blood Cell (WBC) Count 11.7 10x3/uL (3.5-10.5)
[2020-05-15 10:58] LABS: Anion Gap 12 mmol/L (10-20); Chloride 95 mmol/L (98-107); Potassium 3.4 mmol/L (3.5-5.1); Sodium 145 mmol/L (136-145)
[2020-05-15 11:06] LABS: Carbon Dioxide 41 mmol/L (22-29)
[2020-05-15] MEDS ORDERED: Potassium Bicarbonate/Cit Ac 20 MEQ TAB PO SCH (12:30)
[2020-05-15] MEDS: Labetalol HCl 100 MG/20 ML VIAL SLOW IVP PRN (19:40)
[2020-05-16] MEDS: oxyCODONE 5 MG TAB PO SCH ×6 (01:56→20:39)
[2020-05-16 04:45] LABS: ALT (SGPT) 25 U/L (8-55); AST (SGOT) 42 U/L (5-34); Albumin 2.7 g/dL (3.5-5.0); Alkaline Phosphatase 115 U/L (40-110); BUN (Urea Nitrogen) 33 mg/dL (9.8-20.1); Bilirubin, Total 1.1 mg/dL (0.2-1.2); Calc. Creatinine Clearance 151 mL/min (70-130); Calcium 9.3 mg/dL (7.8-10.44); Globulin 4.5 g/dL (2.4-3.5); Glucose 123 mg/dL (70-105); Magnesium 2.4 mg/dL (1.6-2.6); Protein, Total 7.2 g/dL (6.0-8.3)
[2020-05-16 04:53] LABS: Anion Gap 16 mmol/L (10-20); Carbon Dioxide 40 mmol/L (22-29); Chloride 95 mmol/L (98-107); Potassium 3.8 mmol/L (3.5-5.1); Sodium 147 mmol/L (136-145)
[2020-05-16 05:07] LABS: #Basophils 0.1 10x3/uL (0.0-0.2); #Eosinphils 0.2 10x3/uL (0.0-0.5); #Monocytes 0.8 10x3/uL (0.0-1.1); #Neutrophils 9.6 10x3/uL (1.5-8.4); %Basophils 0.4 % (0.0-2.0); %Eosinophils 1.8 % (0.0-6.0); %Lymphocytes 7.6 % (18.0-47.0); %Monocytes 6.8 % (0.0-10.0); %Neutrophils 78.6 % (40.0-75.0); Mean Corpuscular HGB CONC 29.6 g/dL (32.0-36.0); Mean Corpuscular Hemoglobin 29.9 pg (27.0-33.0); Mean Corpuscular Volume 100.7 fl (81.6-98.3); Mean Platelet Volume 10.3 fl (7.4-10.4); RBC Distribution Width 18.7 % (11.5-14.5); Red Blood Cell (RBC) Count 2.68 10x6/uL (3.90-5.03); White Blood Cell (WBC) Count 12.3 10x3/uL (3.5-10.5)
[2020-05-16] MEDS: clonazePAM 1 MG TAB PO SCH ×3 (05:52→21:31)
[2020-05-16 06:43] LABS: Platelet Count 480 10x3/uL (150-450)
[2020-05-16] MEDS: Budesonide 0.5 MG/2 ML NEB NEB SCH ×2 (07:35→19:11)
[2020-05-16] MEDS: Ascorbic Acid 500 mg Chewable Tablet PO SCH (08:03)
[2020-05-16] MEDS: Metoprolol Tartrate 50 MG TAB PO SCH (08:12)
[2020-05-16] MEDS: Zinc Gluconate 50 MG TAB PO SCH (08:12)
[2020-05-16] MEDS: Calcium Carbonate 600 MG TAB PO SCH (08:12)
[2020-05-16] MEDS: Cholecalciferol (Vitamin D3) 400 UNITS TAB PO SCH (08:12)
[2020-05-16] MEDS: Vitamin E 400 UNITS CAP PO SCH (08:12)
[2020-05-16] MEDS: hydrALAZINE 25 MG TAB PO SCH ×3 (08:12→20:39)
[2020-05-16] MEDS: Pantoprazole 40 MG GRANULES PACKET PO SCH (08:12)
[2020-05-16] MEDS: Enoxaparin Sodium 40 MG/0.4 ML SYRINGE SC SCH (08:13)
[2020-05-16] MEDS ORDERED: Atropine Sulfate 1 mg/10 ml Syringe IVP PRN (11:00)
[2020-05-16] MEDS ORDERED: Atropine Sulfate 1 mg/10 ml Syringe ONE (11:04)
[2020-05-16] MEDS ORDERED: acetaZOLAMIDE Sodium 500 mg Vial IVP SCH (23:30)
[2020-05-16] MEDS ORDERED: Furosemide 20 MG/2 ML VIAL SLOW IVP SCH (23:30)
[2020-05-17] MEDS: oxyCODONE 5 MG TAB PO SCH ×6 (01:29→21:35)
[2020-05-17] MEDS: clonazePAM 1 MG TAB PO SCH ×3 (05:26→21:37)
[2020-05-17] MEDS: Budesonide 0.5 MG/2 ML NEB NEB SCH ×2 (07:31→19:51)
[2020-05-17] MEDS ORDERED: acetaZOLAMIDE Sodium 500 mg Vial IVP SCH (09:00)
[2020-05-17] MEDS: hydrALAZINE 25 MG TAB PO SCH ×3 (09:12→21:36)
[2020-05-17] MEDS: Calcium Carbonate 600 MG TAB PO SCH (09:12)
[2020-05-17] MEDS: Pantoprazole 40 MG GRANULES PACKET PO SCH (09:13)
[2020-05-17 10:05] LABS: #Basophils 0.1 10x3/uL (0.0-0.2); #Eosinphils 0.2 10x3/uL (0.0-0.5); #Monocytes 0.8 10x3/uL (0.0-1.1); #Neutrophils 9.7 10x3/uL (1.5-8.4); %Basophils 0.4 % (0.0-2.0); %Eosinophils 1.6 % (0.0-6.0); %Lymphocytes 7.6 % (18.0-47.0); %Monocytes 6.8 % (0.0-10.0); %Neutrophils 79.7 % (40.0-75.0); Mean Corpuscular HGB CONC 29.7 g/dL (32.0-36.0); Mean Corpuscular Hemoglobin 30.5 pg (27.0-33.0); Mean Corpuscular Volume 102.7 fl (81.6-98.3); Platelet Count 382 10x3/uL (150-450); RBC Distribution Width 18.8 % (11.5-14.5); Red Blood Cell (RBC) Count 2.62 10x6/uL (3.90-5.03); White Blood Cell (WBC) Count 12.2 10x3/uL (3.5-10.5)
[2020-05-17 10:06] LABS: BUN (Urea Nitrogen) 28 mg/dL (9.8-20.1); Calc. Creatinine Clearance 150 mL/min (70-130); Calcium 9.1 mg/dL (7.8-10.44); Glucose 147 mg/dL (70-105)
[2020-05-17 10:13] LABS: Anion Gap 12 mmol/L (10-20); Chloride 94 mmol/L (98-107); Potassium 3.1 mmol/L (3.5-5.1); Sodium 145 mmol/L (136-145)
[2020-05-17 10:27] LABS: Carbon Dioxide 42 mmol/L (22-29)
[2020-05-17] MEDS: Enoxaparin Sodium 40 MG/0.4 ML SYRINGE SC SCH (10:57)
[2020-05-17] MEDS ORDERED: Fentanyl BOLUS 250 ML IVPB PRN (15:15)
[2020-05-17] MEDS ORDERED: Fentanyl CADD 100 ML ONE (15:30)
[2020-05-17] MEDS: Fentanyl CADD 100 ML IV SCH (15:53)
[2020-05-17] MEDS ORDERED: Potassium Bicarbonate/Cit Ac 20 MEQ TAB PER TUBE SCH (18:00)
[2020-05-17] MEDS: Acetaminophen 650 MG Suppository PR PRN (22:21)
[2020-05-18] MEDS: oxyCODONE 5 MG TAB PO SCH ×6 (01:07→21:17)
[2020-05-18 05:06] LABS: #Basophils 0.1 10x3/uL (0.0-0.2); #Eosinphils 0.2 10x3/uL (0.0-0.5); #Neutrophils 12.1 10x3/uL (1.5-8.4); %Basophils 0.3 % (0.0-2.0); %Eosinophils 1.5 % (0.0-6.0); %Lymphocytes 5.9 % (18.0-47.0); %Neutrophils 82.8 % (40.0-75.0); Hemoglobin 7.7 g/dL (12.0-15.5); Mean Corpuscular HGB CONC 29.4 g/dL (32.0-36.0); Mean Corpuscular Hemoglobin 30.7 pg (27.0-33.0); Mean Corpuscular Volume 104.4 fl (81.6-98.3); Mean Platelet Volume 10.4 fl (7.4-10.4); Platelet Count 366 10x3/uL (150-450); Red Blood Cell (RBC) Count 2.51 10x6/uL (3.90-5.03); White Blood Cell (WBC) Count 14.7 10x3/uL (3.5-10.5)
[2020-05-18 05:15] LABS: BUN (Urea Nitrogen) 27 mg/dL (9.8-20.1); Calc. Creatinine Clearance 138 mL/min (70-130); Glucose 136 mg/dL (70-105); Magnesium 2.3 mg/dL (1.6-2.6)
[2020-05-18 05:24] LABS: Anion Gap 15 mmol/L (10-20); Carbon Dioxide 36 mmol/L (22-29); Chloride 96 mmol/L (98-107); Potassium 3.6 mmol/L (3.5-5.1); Sodium 143 mmol/L (136-145)
[2020-05-18] MEDS: clonazePAM 1 MG TAB PO SCH ×3 (05:32→21:18)
[2020-05-18] MEDS: Budesonide 0.5 MG/2 ML NEB NEB SCH ×2 (07:18→19:09)
[2020-05-18] MEDS: Enoxaparin Sodium 40 MG/0.4 ML SYRINGE SC SCH (08:46)
[2020-05-18] MEDS: Pantoprazole 40 MG GRANULES PACKET PO SCH (08:46)
[2020-05-18] MEDS: Calcium Carbonate 600 MG TAB PO SCH (08:46)
[2020-05-18] MEDS: hydrALAZINE 25 MG TAB PO SCH ×3 (08:47→21:17)
[2020-05-18] MEDS ORDERED: Fentanyl CADD 100 ML ONE (11:01)
[2020-05-18] MEDS: Fentanyl CADD 100 ML IV SCH (11:02)
[2020-05-18 11:28] LABS: Base Excess (BEa) 10.9 mEq/L (-2.0 to +3.0); CO2 Tension 93.4 mmHg (35.0-45.0); Calcium, Ionized (arterial) 1.21 mmol/L (1.12-1.30); Carboxyhemoglobin (COHb) 2.3 gm% (0.0-3.0); Hemoglobin (Hb) 8.3 g/dL (12.0-16.0); O2 Tension (PaO2), arterial 77.5 mmHg (80.0-100.0); Potassium - ABG Lab 3.7 mmol/L (3.70-5.30); Puncture Site RBA; RapidComm Collect By EA; pH, Arterial 7.25 (7.35-7.45)
[2020-05-18] MEDS ORDERED: oxyCODONE 5 MG TAB ONE (13:23)
[2020-05-18] MEDS ORDERED: Furosemide 40 MG/4 ML VIAL SLOW IVP SCH (15:00)
[2020-05-18] MEDS: Sildenafil Citrate 20 MG TAB PO SCH ×2 (16:07→21:18)
[2020-05-18 21:40] LABS: Actual Bicarbonate (HCO3a) 43.2 mEq/L (22-28); Base Excess (BEa) 12.5 mEq/L (-2.0 to +3.0); CO2 Tension 111.8 mmHg (35.0-45.0); Calcium, Ionized (arterial) 1.21 mmol/L (1.12-1.30); Carboxyhemoglobin (COHb) 2.1 gm% (0.0-3.0); Hemoglobin (Hb) 9.3 g/dL (12.0-16.0); O2 Tension (PaO2), arterial 57.4 mmHg (80.0-100.0); Potassium - ABG Lab 3.9 mmol/L (3.70-5.30); Puncture Site RRA; pH, Arterial 7.21 (7.35-7.45)
[2020-05-19] MEDS: oxyCODONE 5 MG TAB PO SCH ×6 (01:08→20:49)
[2020-05-19 04:08] LABS: BUN (Urea Nitrogen) 40 mg/dL (9.8-20.1); Calc. Creatinine Clearance 134 mL/min (70-130); Calcium 9.3 mg/dL (7.8-10.44); Glucose 129 mg/dL (70-105)
[2020-05-19 04:09] LABS: #Basophils 0.1 10x3/uL (0.0-0.2); #Eosinphils 0.1 10x3/uL (0.0-0.5); #Monocytes 0.7 10x3/uL (0.0-1.1); #Neutrophils 13.2 10x3/uL (1.5-8.4); %Basophils 0.3 % (0.0-2.0); %Eosinophils 0.9 % (0.0-6.0); %Lymphocytes 4.7 % (18.0-47.0); %Monocytes 4.8 % (0.0-10.0); %Neutrophils 86.2 % (40.0-75.0); Hemoglobin 7.6 g/dL (12.0-15.5); Mean Corpuscular Volume 103.6 fl (81.6-98.3); Mean Platelet Volume 9.9 fl (7.4-10.4); Platelet Count 303 10x3/uL (150-450); RBC Distribution Width 18.8 % (11.5-14.5); Red Blood Cell (RBC) Count 2.53 10x6/uL (3.90-5.03); White Blood Cell (WBC) Count 15.4 10x3/uL (3.5-10.5)
[2020-05-19 04:10] LABS: Actual Bicarbonate (HCO3a) 42.3 mEq/L (22-28); Base Excess (BEa) 15.4 mEq/L (-2.0 to +3.0); CO2 Tension 70.3 mmHg (35.0-45.0); Carboxyhemoglobin (COHb) 1.5 gm% (0.0-3.0); Hemoglobin (Hb) 8.2 g/dL (12.0-16.0); O2 Tension (PaO2), arterial 64.6 mmHg (80.0-100.0); Potassium - ABG Lab 3.6 mmol/L (3.70-5.30); Puncture Site RRA
[2020-05-19 04:14] LABS: ALV-art Gradient 275.325 mmHg (0-20)
[2020-05-19 04:17] LABS: Anion Gap 19 mmol/L (10-20); Carbon Dioxide 34 mmol/L (22-29); Chloride 92 mmol/L (98-107); Potassium 3.8 mmol/L (3.5-5.1); Sodium 141 mmol/L (136-145)
[2020-05-19] MEDS: clonazePAM 1 MG TAB PO SCH ×3 (05:17→20:50)
[2020-05-19] MEDS: Budesonide 0.5 MG/2 ML NEB NEB SCH ×2 (07:05→19:27)
[2020-05-19] MEDS: Enoxaparin Sodium 40 MG/0.4 ML SYRINGE SC SCH (08:29)
[2020-05-19] MEDS: Pantoprazole 40 MG GRANULES PACKET PO SCH (08:30)
[2020-05-19] MEDS: hydrALAZINE 25 MG TAB PO SCH ×3 (08:30→20:49)
[2020-05-19] MEDS: Calcium Carbonate 600 MG TAB PO SCH (08:30)
[2020-05-19] MEDS: Sildenafil Citrate 20 MG TAB PO SCH ×3 (08:30→20:50)
[2020-05-19] MEDS: Fentanyl CADD 100 ML IV SCH (09:31)
[2020-05-19] MEDS ORDERED: Fentanyl CADD 100 ML ONE (09:31)
[2020-05-19 11:08] LABS: Actual Bicarbonate (HCO3a) 40.4 mEq/L (22-28); Base Excess (BEa) 14.3 mEq/L (-2.0 to +3.0); CO2 Tension 64.3 mmHg (35.0-45.0); Carboxyhemoglobin (COHb) 1.8 gm% (0.0-3.0); Hemoglobin (Hb) 7.3 g/dL (12.0-16.0); O2 Tension (PaO2), arterial 88.6 mmHg (80.0-100.0); Potassium - ABG Lab 3.3 mmol/L (3.70-5.30); pH, Arterial 7.42 (7.35-7.45)
[2020-05-19 11:09] LABS: Calcium, Ionized (arterial) 1.17 mmol/L (1.12-1.30); Puncture Site RBA; RapidComm Collect By EA
[2020-05-19 11:11] LABS: ALV-art Gradient 258.825 mmHg (0-20)
[2020-05-19] MEDS ORDERED: VANCOMYCIN 1.75 GM/350 ML BAG 1.75 GM in Premix Bag 1 BAG IVPB SCH (11:30)
[2020-05-19] MEDS: Acetaminophen 325 MG TAB PO PRN (12:27)
[2020-05-19] MEDS: cefTRIAXone\\ROCEPHIN 1 GM in Sodium Chloride 0.9% 100 ML IVPB SCH (12:28)
[2020-05-19] MEDS: Azithromycin 500 MG in Sodium Chloride 0.9% 250 ML 250 ML IVPB SCH (14:44)
[2020-05-19] MEDS ORDERED: Sterile Water 10 ML VIAL IVP SCH (17:45)
[2020-05-19] MEDS ORDERED: Activase 2 MG VIAL CATH SCH (17:45)
[2020-05-19] MEDS ORDERED: Activase 2 MG VIAL ONE (17:47)
[2020-05-19] MEDS ORDERED: Vancomycin HCl 1 GM in Sodium Chloride 0.9% 250 ML 250 ML IVPB SCH (21:00)
[2020-05-19] MEDS ORDERED: Vancomycin HCl 750 MG in Sodium Chloride 0.9% 250 ML 250 ML IVPB SCH (23:30)
[2020-05-20] MEDS: oxyCODONE 5 MG TAB PO SCH ×6 (01:20→21:30)
[2020-05-20 04:31] LABS: #Basophils 0.1 10x3/uL (0.0-0.2); #Eosinphils 0.2 10x3/uL (0.0-0.5); #Monocytes 0.7 10x3/uL (0.0-1.1); #Neutrophils 10.7 10x3/uL (1.5-8.4); %Basophils 0.5 % (0.0-2.0); %Eosinophils 1.7 % (0.0-6.0); %Lymphocytes 4.9 % (18.0-47.0); %Monocytes 5.4 % (0.0-10.0); %Neutrophils 83.8 % (40.0-75.0); Hemoglobin 7.5 g/dL (12.0-15.5); Mean Corpuscular HGB CONC 29.3 g/dL (32.0-36.0); Mean Corpuscular Volume 102.4 fl (81.6-98.3); Mean Platelet Volume 10.3 fl (7.4-10.4); Platelet Count 314 10x3/uL (150-450); RBC Distribution Width 18.9 % (11.5-14.5); White Blood Cell (WBC) Count 12.8 10x3/uL (3.5-10.5)
[2020-05-20 04:34] LABS: BUN (Urea Nitrogen) 36 mg/dL (9.8-20.1); Calc. Creatinine Clearance 146 mL/min (70-130); Calcium 9.1 mg/dL (7.8-10.44); Glucose 127 mg/dL (70-105)
[2020-05-20 04:41] LABS: Anion Gap 15 mmol/L (10-20); Carbon Dioxide 35 mmol/L (22-29); Chloride 93 mmol/L (98-107); Sodium 140 mmol/L (136-145)
[2020-05-20 04:46] LABS: Potassium 2.9 mmol/L (3.5-5.1)
[2020-05-20] MEDS: clonazePAM 1 MG TAB PO SCH ×3 (05:23→21:31)
[2020-05-20] MEDS: Potassium Chloride 20 MEQ TAB PER TUBE SCH ×2 (05:23→08:42)
[2020-05-20] MEDS: Budesonide 0.5 MG/2 ML NEB NEB SCH ×2 (07:25→18:48)
[2020-05-20] MEDS: Albuterol Sulfate 2.5 mg/3 ml Neb NEB PRN ×4 (07:34→18:48)
[2020-05-20] MEDS: hydrALAZINE 25 MG TAB PO SCH ×3 (08:41→21:31)
[2020-05-20] MEDS: Sildenafil Citrate 20 MG TAB PO SCH ×3 (08:41→21:31)
[2020-05-20] MEDS: Pantoprazole 40 MG GRANULES PACKET PO SCH (08:42)
[2020-05-20] MEDS: Calcium Carbonate 600 MG TAB PO SCH (08:43)
[2020-05-20] MEDS: Enoxaparin Sodium 40 MG/0.4 ML SYRINGE SC SCH (09:55)
[2020-05-20] MEDS: cefTRIAXone\\ROCEPHIN 1 GM in Sodium Chloride 0.9% 100 ML IVPB SCH (11:36)
[2020-05-20] MEDS: Azithromycin 500 MG in Sodium Chloride 0.9% 250 ML 250 ML IVPB SCH (11:37)
[2020-05-20] MEDS: Vancomycin HCl 750 MG in Sodium Chloride 0.9% 250 ML 250 ML IVPB SCH ×3 (11:38→23:16)
[2020-05-20] MEDS: Fentanyl CADD 100 ML IV SCH (13:37)
[2020-05-20] MEDS: Cefepime 2 GM in Sodium Chloride 0.9% 100 ML IVPB SCH (21:30)
[2020-05-20 22:54] LABS: Vancomycin, Trough 18.5 ug/mL
[2020-05-21] MEDS: oxyCODONE 5 MG TAB PO SCH ×6 (00:44→21:11)
[2020-05-21 03:55] LABS: #Eosinphils 0.2 10x3/uL (0.0-0.5); #Monocytes 0.7 10x3/uL (0.0-1.1); #Neutrophils 7.8 10x3/uL (1.5-8.4); %Basophils 0.3 % (0.0-2.0); %Eosinophils 2.1 % (0.0-6.0); %Monocytes 7.5 % (0.0-10.0); %Neutrophils 81.6 % (40.0-75.0); Hemoglobin 6.8 g/dL (12.0-15.5); Mean Corpuscular HGB CONC 29.3 g/dL (32.0-36.0); Mean Corpuscular Hemoglobin 30.5 pg (27.0-33.0); Mean Platelet Volume 9.8 fl (7.4-10.4); Platelet Count 279 10x3/uL (150-450); RBC Distribution Width 19.1 % (11.5-14.5); Red Blood Cell (RBC) Count 2.23 10x6/uL (3.90-5.03); White Blood Cell (WBC) Count 9.5 10x3/uL (3.5-10.5)
[2020-05-21 04:16] LABS: Anion Gap 15 mmol/L (10-20); Carbon Dioxide 34 mmol/L (22-29); Chloride 101 mmol/L (98-107); Potassium 4.3 mmol/L (3.5-5.1); Sodium 146 mmol/L (136-145)
[2020-05-21 04:23] LABS: BUN (Urea Nitrogen) 34 mg/dL (9.8-20.1); Calc. Creatinine Clearance 161 mL/min (70-130); Calcium 9.4 mg/dL (7.8-10.44); Glucose 110 mg/dL (70-105); Magnesium 2.3 mg/dL (1.6-2.6)
[2020-05-21] MEDS: clonazePAM 1 MG TAB PO SCH ×3 (05:38→21:11)
[2020-05-21] MEDS: Budesonide 0.5 MG/2 ML NEB NEB SCH ×2 (07:48→18:52)
[2020-05-21] MEDS: Sildenafil Citrate 20 MG TAB PO SCH ×3 (07:57→21:11)
[2020-05-21] MEDS: Pantoprazole 40 MG GRANULES PACKET PO SCH (07:57)
[2020-05-21] MEDS: Calcium Carbonate 600 MG TAB PO SCH (07:59)
[2020-05-21] MEDS: Cefepime 2 GM in Sodium Chloride 0.9% 100 ML IVPB SCH ×2 (08:55→21:10)
[2020-05-21] MEDS: hydrALAZINE 25 MG TAB PO SCH ×3 (08:56→21:10)
[2020-05-21] MEDS: Enoxaparin Sodium 40 MG/0.4 ML SYRINGE SC SCH (10:17)
[2020-05-21] MEDS ORDERED: Lidocaine 1% PF 5 ML VIAL ONE (11:06)
[2020-05-21] MEDS ORDERED: Sodium Bicarbonate 2.5 MEQ/5 ML VIAL ONE (11:06)
[2020-05-21] MEDS: Vancomycin HCl 750 MG in Sodium Chloride 0.9% 250 ML 250 ML IVPB SCH (11:08)
[2020-05-21] MEDS ORDERED: Furosemide 20 MG/2 ML VIAL SLOW IVP SCH ×2 (13:00)
[2020-05-21] MEDS: Fentanyl CADD 100 ML IV SCH (16:51)
[2020-05-22] MEDS: oxyCODONE 5 MG TAB PO SCH ×6 (00:08→21:09)
[2020-05-22] MEDS: Vancomycin HCl 750 MG in Sodium Chloride 0.9% 250 ML 250 ML IVPB SCH (00:08)
[2020-05-22 04:40] LABS: #Basophils 0.1 10x3/uL (0.0-0.2); #Eosinphils 0.3 10x3/uL (0.0-0.5); #Monocytes 0.8 10x3/uL (0.0-1.1); #Neutrophils 7.1 10x3/uL (1.5-8.4); %Basophils 0.7 % (0.0-2.0); %Eosinophils 3.5 % (0.0-6.0); %Lymphocytes 4.7 % (18.0-47.0); %Monocytes 8.5 % (0.0-10.0); %Neutrophils 78.7 % (40.0-75.0); Hemoglobin 8.7 g/dL (12.0-15.5); Mean Corpuscular HGB CONC 29.9 g/dL (32.0-36.0); Mean Corpuscular Hemoglobin 29.6 pg (27.0-33.0); Mean Platelet Volume 10.3 fl (7.4-10.4); Platelet Count 272 10x3/uL (150-450); RBC Distribution Width 19.3 % (11.5-14.5); Red Blood Cell (RBC) Count 2.94 10x6/uL (3.90-5.03); White Blood Cell (WBC) Count 9.1 10x3/uL (3.5-10.5)
[2020-05-22] MEDS: clonazePAM 1 MG TAB PO SCH ×3 (04:51→23:00)
[2020-05-22 04:54] LABS: Anion Gap 13 mmol/L (10-20); BUN (Urea Nitrogen) 30 mg/dL (9.8-20.1); Calc. Creatinine Clearance 166 mL/min (70-130); Calcium 9.2 mg/dL (7.8-10.44); Carbon Dioxide 36 mmol/L (22-29); Chloride 101 mmol/L (98-107); Glucose 100 mg/dL (70-105); Potassium 3.7 mmol/L (3.5-5.1); Sodium 146 mmol/L (136-145)
[2020-05-22] MEDS: Lorazepam 2 MG/ML VIAL SLOW IVP PRN ×2 (05:05→10:56)
[2020-05-22] MEDS ORDERED: Midazolam HCl 5 mg/5 ml Vial ONE (06:41)
[2020-05-22] MEDS: Cefepime 2 GM in Sodium Chloride 0.9% 100 ML IVPB SCH ×2 (08:46→21:09)
[2020-05-22] MEDS: Enoxaparin Sodium 40 MG/0.4 ML SYRINGE SC SCH (08:46)
[2020-05-22] MEDS: Budesonide 0.5 MG/2 ML NEB NEB SCH ×2 (08:47→18:28)
[2020-05-22] MEDS: Calcium Carbonate 600 MG TAB PO SCH (10:49)
[2020-05-22] MEDS: Pantoprazole 40 MG GRANULES PACKET PO SCH (10:50)
[2020-05-22] MEDS: hydrALAZINE 25 MG TAB PO SCH ×3 (10:50→23:38)
[2020-05-22] MEDS: Sildenafil Citrate 20 MG TAB PO SCH ×3 (10:51→21:11)
[2020-05-22] MEDS: Fentanyl CADD 100 ML IV SCH (12:48)
[2020-05-23] MEDS: oxyCODONE 5 MG TAB PO SCH ×7 (01:19→21:30)
[2020-05-23] MEDS: Fentanyl CADD 100 ML IV SCH (04:30)
[2020-05-23 04:35] LABS: Anion Gap 12 mmol/L (10-20); BUN (Urea Nitrogen) 24 mg/dL (9.8-20.1); Calc. Creatinine Clearance 166 mL/min (70-130); Calcium 9.4 mg/dL (7.8-10.44); Carbon Dioxide 36 mmol/L (22-29); Chloride 100 mmol/L (98-107); Glucose 102 mg/dL (70-105); Potassium 3.5 mmol/L (3.5-5.1); Sodium 144 mmol/L (136-145)
[2020-05-23 04:40] LABS: #Eosinphils 0.2 10x3/uL (0.0-0.5); #Monocytes 0.8 10x3/uL (0.0-1.1); #Neutrophils 8.6 10x3/uL (1.5-8.4); %Basophils 0.4 % (0.0-2.0); %Eosinophils 2.2 % (0.0-6.0); %Lymphocytes 4.8 % (18.0-47.0); %Monocytes 7.2 % (0.0-10.0); %Neutrophils 81.8 % (40.0-75.0); Hemoglobin 9.3 g/dL (12.0-15.5); Mean Corpuscular HGB CONC 30.3 g/dL (32.0-36.0); Mean Corpuscular Hemoglobin 30.3 pg (27.0-33.0); Mean Platelet Volume 10.1 fl (7.4-10.4); Platelet Count 264 10x3/uL (150-450); Red Blood Cell (RBC) Count 3.07 10x6/uL (3.90-5.03); White Blood Cell (WBC) Count 10.5 10x3/uL (3.5-10.5)
[2020-05-23] MEDS: clonazePAM 1 MG TAB PO SCH ×3 (05:25→23:30)
[2020-05-23] MEDS ORDERED: Potassium Bicarbonate/Cit Ac 20 MEQ TAB PO SCH (07:30)
[2020-05-23] MEDS: Budesonide 0.5 MG/2 ML NEB NEB SCH ×2 (07:45→19:22)
[2020-05-23] MEDS: Albuterol Sulfate 2.5 mg/3 ml Neb NEB PRN (08:12)
[2020-05-23] MEDS: Enoxaparin Sodium 40 MG/0.4 ML SYRINGE SC SCH (08:36)
[2020-05-23] MEDS: hydrALAZINE 25 MG TAB PO SCH ×3 (08:37→23:30)
[2020-05-23] MEDS: Sildenafil Citrate 20 MG TAB PO SCH ×3 (08:37→21:30)
[2020-05-23] MEDS: Pantoprazole 40 MG GRANULES PACKET PO SCH (08:38)
[2020-05-23] MEDS: Calcium Carbonate 600 MG TAB PO SCH (08:38)
[2020-05-23] MEDS: Cefepime 2 GM in Sodium Chloride 0.9% 100 ML IVPB SCH ×2 (08:38→21:30)
[2020-05-23] MEDS: Lorazepam 2 MG/ML VIAL SLOW IVP PRN (17:04)
[2020-05-24] MEDS: Lorazepam 2 MG/ML VIAL SLOW IVP PRN ×2 (03:42→15:18)
[2020-05-24 04:27] LABS: BUN (Urea Nitrogen) 26 mg/dL (9.8-20.1); Calc. Creatinine Clearance 166 mL/min (70-130); Calcium 9.4 mg/dL (7.8-10.44); Glucose 164 mg/dL (70-105)
[2020-05-24 04:34] LABS: Anion Gap 14 mmol/L (10-20); Carbon Dioxide 33 mmol/L (22-29); Chloride 100 mmol/L (98-107); Potassium 3.7 mmol/L (3.5-5.1); Sodium 143 mmol/L (136-145)
[2020-05-24] MEDS: oxyCODONE 5 MG TAB PO SCH ×6 (04:35→21:15)
[2020-05-24 05:07] LABS: #Basophils 0.1 10x3/uL (0.0-0.2); #Eosinphils 0.4 10x3/uL (0.0-0.5); #Monocytes 0.8 10x3/uL (0.0-1.1); #Neutrophils 6.8 10x3/uL (1.5-8.4); %Basophils 0.6 % (0.0-2.0); %Lymphocytes 6.8 % (18.0-47.0); %Neutrophils 76.3 % (40.0-75.0); Mean Corpuscular HGB CONC 30.3 g/dL (32.0-36.0); Mean Corpuscular Hemoglobin 30.3 pg (27.0-33.0); Mean Platelet Volume 10.3 fl (7.4-10.4); Platelet Count 253 10x3/uL (150-450); RBC Distribution Width 18.9 % (11.5-14.5); Red Blood Cell (RBC) Count 2.97 10x6/uL (3.90-5.03); White Blood Cell (WBC) Count 8.9 10x3/uL (3.5-10.5)
[2020-05-24] MEDS: clonazePAM 1 MG TAB PO SCH ×3 (05:30→23:00)
[2020-05-24] MEDS: Budesonide 0.5 MG/2 ML NEB NEB SCH ×2 (07:25→19:26)
[2020-05-24] MEDS: Cefepime 2 GM in Sodium Chloride 0.9% 100 ML IVPB SCH ×2 (07:50→21:15)
[2020-05-24] MEDS: Enoxaparin Sodium 40 MG/0.4 ML SYRINGE SC SCH (07:51)
[2020-05-24] MEDS: Pantoprazole 40 MG GRANULES PACKET PO SCH (07:52)
[2020-05-24] MEDS: Sildenafil Citrate 20 MG TAB PO SCH ×3 (07:52→21:15)
[2020-05-24] MEDS: hydrALAZINE 25 MG TAB PO SCH ×3 (07:52→21:15)
[2020-05-24] MEDS: Calcium Carbonate 600 MG TAB PO SCH (07:52)
[2020-05-24] MEDS ORDERED: Furosemide 40 MG/4 ML VIAL SLOW IVP SCH (11:00)
[2020-05-24] MEDS ORDERED: hydrALAZINE 25 MG TAB PO SCH (11:30)
[2020-05-24 12:19] LABS: Actual Bicarbonate (HCO3a) 35.8 mEq/L (22-28); Base Excess (BEa) 7.3 mEq/L (-2.0 to +3.0); CO2 Tension 76.5 mmHg (35.0-45.0); Calcium, Ionized (arterial) 1.31 mmol/L (1.12-1.30); Carboxyhemoglobin (COHb) 1.1 gm% (0.0-3.0); Hemoglobin (Hb) 10.3 g/dL (12.0-16.0); O2 Tension (PaO2), arterial 60.7 mmHg (80.0-100.0); Potassium - ABG Lab 3.7 mmol/L (3.70-5.30); Puncture Site RRA; RapidComm Collect By EA; pH, Arterial 7.29 (7.35-7.45)
[2020-05-24 12:24] LABS: ALV-art Gradient 271.475 mmHg (0-20)
[2020-05-24] MEDS ORDERED: Potassium Chloride 20 MEQ TAB PO SCH (16:15)
[2020-05-25] MEDS: oxyCODONE 5 MG TAB PO SCH ×5 (00:38→21:45)
[2020-05-25 04:24] LABS: #Eosinphils 0.3 10x3/uL (0.0-0.5); #Monocytes 0.9 10x3/uL (0.0-1.1); #Neutrophils 6.7 10x3/uL (1.5-8.4); %Basophils 0.4 % (0.0-2.0); %Eosinophils 3.3 % (0.0-6.0); %Lymphocytes 10.4 % (18.0-47.0); %Monocytes 9.7 % (0.0-10.0); %Neutrophils 73.1 % (40.0-75.0); Hemoglobin 9.1 g/dL (12.0-15.5); Mean Corpuscular HGB CONC 29.6 g/dL (32.0-36.0); Mean Corpuscular Volume 101.3 fl (81.6-98.3); Mean Platelet Volume 10.7 fl (7.4-10.4); Platelet Count 251 10x3/uL (150-450); RBC Distribution Width 18.6 % (11.5-14.5); Red Blood Cell (RBC) Count 3.03 10x6/uL (3.90-5.03); White Blood Cell (WBC) Count 9.2 10x3/uL (3.5-10.5)
[2020-05-25 04:38] LABS: Anion Gap 11 mmol/L (10-20); BUN (Urea Nitrogen) 24 mg/dL (9.8-20.1); Calc. Creatinine Clearance 157 mL/min (70-130); Calcium 9.2 mg/dL (7.8-10.44); Carbon Dioxide 36 mmol/L (22-29); Chloride 96 mmol/L (98-107); Glucose 128 mg/dL (70-105); Potassium 4.3 mmol/L (3.5-5.1); Sodium 139 mmol/L (136-145)
[2020-05-25] MEDS: clonazePAM 1 MG TAB PO SCH ×3 (05:10→21:45)
[2020-05-25] MEDS: Budesonide 0.5 MG/2 ML NEB NEB SCH ×2 (06:59→18:33)
[2020-05-25] MEDS: Enoxaparin Sodium 40 MG/0.4 ML SYRINGE SC SCH (08:35)
[2020-05-25] MEDS: Cefepime 2 GM in Sodium Chloride 0.9% 100 ML IVPB SCH ×2 (08:36→20:30)
[2020-05-25] MEDS: Calcium Carbonate 600 MG TAB PO SCH (08:37)
[2020-05-25] MEDS: Sildenafil Citrate 20 MG TAB PO SCH ×3 (08:41→20:30)
[2020-05-25] MEDS: Pantoprazole 40 MG GRANULES PACKET PO SCH (08:41)
[2020-05-25] MEDS: hydrALAZINE 25 MG TAB PO SCH ×3 (09:20→20:30)
[2020-05-25] MEDS: Labetalol HCl 100 MG/20 ML VIAL SLOW IVP PRN (09:20)
[2020-05-26] MEDS: oxyCODONE 5 MG TAB PO SCH ×6 (01:00→20:30)
[2020-05-26 04:45] LABS: Anion Gap 11 mmol/L (10-20); BUN (Urea Nitrogen) 30 mg/dL (9.8-20.1); Calc. Creatinine Clearance 147 mL/min (70-130); Calcium 9.4 mg/dL (7.8-10.44); Carbon Dioxide 36 mmol/L (22-29); Chloride 96 mmol/L (98-107); Glucose 144 mg/dL (70-105); Potassium 4.7 mmol/L (3.5-5.1); Sodium 138 mmol/L (136-145)
[2020-05-26 05:24] LABS: Hemoglobin 8.7 g/dL (12.0-15.5); Mean Corpuscular HGB CONC 29.5 g/dL (32.0-36.0); Mean Corpuscular Hemoglobin 29.8 pg (27.0-33.0); Mean Platelet Volume 10.7 fl (7.4-10.4); Platelet Count 233 10x3/uL (150-450); RBC Distribution Width 18.4 % (11.5-14.5); Red Blood Cell (RBC) Count 2.92 10x6/uL (3.90-5.03); White Blood Cell (WBC) Count 8.2 10x3/uL (3.5-10.5)
[2020-05-26] MEDS: clonazePAM 1 MG TAB PO SCH ×3 (05:30→23:14)
[2020-05-26 06:53] LABS: Band 11 % (5-11); Lymphocytes 6 % (21-51); Monocytes 7 % (0-10); Myelocyte 1 % (0-0); Neutrophil 69 % (42-75); Reactive Lymphocytes 6 % (0-10)
[2020-05-26 06:55] LABS: Anisocytosis MODERATE=16-30 cells (100X) (0-5/hpf); Hypochromia SLIGHT = 6-15 cells (100X) (0-5/hpf); Macrocytosis MODERATE=16-30 cells (100X) (0-5/hpf); Microcytosis SLIGHT = 6-15 cells (100X) (0-5/hpf)
[2020-05-26 06:56] LABS: Ovalocytes SLIGHT = 2-5 cells (100X) (0-1/hpf); Platelet Clumps SLIGHT
[2020-05-26 06:57] LABS: Basophilic Stippling SLIGHT = 1-2 cells (100X) (None Seen); Platelet Morphology Comment Appears Adequate
[2020-05-26 07:00] LABS: Large Platelets MODERATE
[2020-05-26 07:01] LABS: MDiff Complete? YES; Manual Diff?? YES
[2020-05-26] MEDS: Pantoprazole 40 MG GRANULES PACKET PO SCH (08:07)
[2020-05-26] MEDS: Cefepime 2 GM in Sodium Chloride 0.9% 100 ML IVPB SCH ×2 (08:11→20:30)
[2020-05-26] MEDS: Enoxaparin Sodium 40 MG/0.4 ML SYRINGE SC SCH (08:13)
[2020-05-26] MEDS: hydrALAZINE 25 MG TAB PO SCH ×3 (08:14→20:30)
[2020-05-26] MEDS: Sildenafil Citrate 20 MG TAB PO SCH ×3 (08:15→20:30)
[2020-05-26] MEDS: Calcium Carbonate 600 MG TAB PO SCH (08:17)
[2020-05-26] MEDS: Budesonide 0.5 MG/2 ML NEB NEB SCH ×2 (08:19→19:06)
[2020-05-27] MEDS: oxyCODONE 5 MG TAB PO SCH ×8 (01:15→23:52)
[2020-05-27 04:22] LABS: Hemoglobin 8.4 g/dL (12.0-15.5); Mean Corpuscular HGB CONC 28.3 g/dL (32.0-36.0); Mean Corpuscular Hemoglobin 29.4 pg (27.0-33.0); Mean Corpuscular Volume 103.8 fl (81.6-98.3); Platelet Count 237 10x3/uL (150-450); RBC Distribution Width 18.4 % (11.5-14.5); Red Blood Cell (RBC) Count 2.86 10x6/uL (3.90-5.03); White Blood Cell (WBC) Count 11.9 10x3/uL (3.5-10.5)
[2020-05-27 04:41] LABS: Anion Gap 12 mmol/L (10-20); BUN (Urea Nitrogen) 41 mg/dL (9.8-20.1); Calc. Creatinine Clearance 118 mL/min (70-130); Calcium 9.9 mg/dL (7.8-10.44); Carbon Dioxide 33 mmol/L (22-29); Chloride 94 mmol/L (98-107); Glucose 116 mg/dL (70-105); Sodium 134 mmol/L (136-145)
[2020-05-27] MEDS: clonazePAM 1 MG TAB PO SCH (05:30)
[2020-05-27 06:43] LABS: Band 14 % (5-11); Eosinophils 2 % (0-10); Lymphocytes 5 % (21-51); Metamyelocyte 1 % (0-0); Monocytes 7 % (0-10); Myelocyte 1 % (0-0); Neutrophil 67 % (42-75); Reactive Lymphocytes 3 % (0-10)
[2020-05-27 06:44] LABS: Macrocytosis MODERATE=16-30 cells (100X) (0-5/hpf)
[2020-05-27 06:45] LABS: Anisocytosis MODERATE=16-30 cells (100X) (0-5/hpf); Hypochromia SLIGHT = 6-15 cells (100X) (0-5/hpf); Large Platelets SLIGHT; Microcytosis SLIGHT = 6-15 cells (100X) (0-5/hpf); Platelet Morphology Comment Appears Adequate
[2020-05-27 06:46] LABS: MDiff Complete? YES; Manual Diff?? YES; Toxic Granulation SLIGHT
[2020-05-27] MEDS: Budesonide 0.5 MG/2 ML NEB NEB SCH ×2 (07:55→19:55)
[2020-05-27] MEDS: Cefepime 2 GM in Sodium Chloride 0.9% 100 ML IVPB SCH ×2 (08:24→20:29)
[2020-05-27] MEDS: Pantoprazole 40 MG GRANULES PACKET PO SCH (08:25)
[2020-05-27] MEDS: Calcium Carbonate 600 MG TAB PO SCH (08:25)
[2020-05-27] MEDS: Senokot S 8.6-50 MG TAB PO PRN (08:25)
[2020-05-27] MEDS: Sildenafil Citrate 20 MG TAB PO SCH ×3 (08:27→20:32)
[2020-05-27] MEDS: Enoxaparin Sodium 40 MG/0.4 ML SYRINGE SC SCH (08:28)
[2020-05-27] MEDS: hydrALAZINE 25 MG TAB PO SCH ×3 (08:57→20:31)
[2020-05-27] MEDS ORDERED: Furosemide 40 MG/4 ML VIAL SLOW IVP SCH (10:15)
[2020-05-27] MEDS ORDERED: oxyCODONE 5 MG TAB PO SCH (11:00)
[2020-05-27] MEDS: clonazePAM 0.5 MG TAB PO SCH ×2 (15:01→20:32)
[2020-05-28] MEDS: oxyCODONE 5 MG TAB PO SCH ×5 (03:42→19:51)
[2020-05-28] MEDS: Budesonide 0.5 MG/2 ML NEB NEB SCH ×2 (06:40→20:15)
[2020-05-28] MEDS: clonazePAM 0.5 MG TAB PO SCH (08:04)
[2020-05-28] MEDS: Enoxaparin Sodium 40 MG/0.4 ML SYRINGE SC SCH (08:04)
[2020-05-28] MEDS: Cefepime 2 GM in Sodium Chloride 0.9% 100 ML IVPB SCH (08:04)
[2020-05-28] MEDS: Pantoprazole 40 MG GRANULES PACKET PO SCH (08:05)
[2020-05-28] MEDS: hydrALAZINE 25 MG TAB PO SCH ×3 (08:05→21:20)
[2020-05-28] MEDS: Sildenafil Citrate 20 MG TAB PO SCH ×3 (08:05→21:21)
[2020-05-28] MEDS: Calcium Carbonate 600 MG TAB PO SCH (08:06)
[2020-05-28] MEDS: Senokot S 8.6-50 MG TAB PO PRN (08:06)
[2020-05-28 11:26] LABS: Anion Gap 17 mmol/L (10-20); BUN (Urea Nitrogen) 51 mg/dL (9.8-20.1); Calc. Creatinine Clearance 126 mL/min (70-130); Calcium 10.3 mg/dL (7.8-10.44); Carbon Dioxide 31 mmol/L (22-29); Chloride 94 mmol/L (98-107); Glucose 119 mg/dL (70-105); Sodium 136 mmol/L (136-145)
[2020-05-28 12:00] LABS: Potassium 5.2 mmol/L (3.5-5.1)
[2020-05-28] MEDS ORDERED: Furosemide 40 MG/4 ML VIAL SLOW IVP SCH (18:30)
[2020-05-29] MEDS: oxyCODONE 5 MG TAB PO SCH ×5 (00:13→20:12)
[2020-05-29] MEDS: Budesonide 0.5 MG/2 ML NEB NEB SCH ×2 (06:34→18:36)
[2020-05-29] MEDS: Enoxaparin Sodium 40 MG/0.4 ML SYRINGE SC SCH (08:53)
[2020-05-29] MEDS: hydrALAZINE 25 MG TAB PO SCH ×3 (08:55→20:11)
[2020-05-29] MEDS: Calcium Carbonate 600 MG TAB PO SCH (08:55)
[2020-05-29] MEDS: Sildenafil Citrate 20 MG TAB PO SCH ×3 (08:56→20:11)
[2020-05-29] MEDS: Pantoprazole 40 MG GRANULES PACKET PO SCH (08:56)
[2020-05-30] MEDS: oxyCODONE 5 MG TAB PO SCH ×6 (00:41→20:49)
[2020-05-30] MEDS: Budesonide 0.5 MG/2 ML NEB NEB SCH ×2 (07:41→19:49)
[2020-05-30] MEDS: Enoxaparin Sodium 40 MG/0.4 ML SYRINGE SC SCH (08:00)
[2020-05-30] MEDS: Pantoprazole 40 MG GRANULES PACKET PO SCH (08:06)
[2020-05-30] MEDS: hydrALAZINE 25 MG TAB PO SCH ×3 (08:06→20:49)
[2020-05-30] MEDS: Sildenafil Citrate 20 MG TAB PO SCH ×3 (08:06→20:49)
[2020-05-30] MEDS: Calcium Carbonate 600 MG TAB PO SCH (08:29)
[2020-05-30 09:10] VITALS: BMI 34.7
[2020-05-30] MEDS ORDERED: Sodium Chloride 0.9% 1,000 ML IV SCH ×2 (12:15→23:45)
[2020-05-30] MEDS: Sodium Chloride 0.9% 1,000 ML IV SCH (12:45)
[2020-05-30] MEDS: Lorazepam 2 MG/ML VIAL SLOW IVP PRN (22:58)
[2020-05-31 00:14] LABS: Anion Gap 17 mmol/L (10-20); BUN (Urea Nitrogen) 79 mg/dL (9.8-20.1); Calc. Creatinine Clearance 79 mL/min (70-130); Calcium 9.9 mg/dL (7.8-10.44); Carbon Dioxide 31 mmol/L (22-29); Chloride 93 mmol/L (98-107); Glucose 110 mg/dL (70-105); Magnesium 2.6 mg/dL (1.6-2.6); Potassium 5.8 mmol/L (3.5-5.1); Sodium 135 mmol/L (136-145)
[2020-05-31 00:16] LABS: Hemoglobin 7.4 g/dL (12.0-15.5); Mean Corpuscular HGB CONC 28.8 g/dL (32.0-36.0); Mean Corpuscular Hemoglobin 29.8 pg (27.0-33.0); Mean Corpuscular Volume 103.6 fl (81.6-98.3); Mean Platelet Volume 10.6 fl (7.4-10.4); Platelet Count 225 10x3/uL (150-450); RBC Distribution Width 17.9 % (11.5-14.5); Red Blood Cell (RBC) Count 2.48 10x6/uL (3.90-5.03); White Blood Cell (WBC) Count 9.8 10x3/uL (3.5-10.5)
[2020-05-31] MEDS: oxyCODONE 5 MG TAB PO SCH ×3 (00:16→07:52)
[2020-05-31 00:49] LABS: MDiff Complete? YES
[2020-05-31 00:54] LABS: Band 5 % (5-11); Eosinophils 4 % (0-10); Lymphocytes 13 % (21-51); Metamyelocyte 1 % (0-0); Monocytes 9 % (0-10); Neutrophil 68 % (42-75)
[2020-05-31 01:06] LABS: Anisocytosis MODERATE=16-30 cells (100X) (0-5/hpf); Hypochromia MODERATE=16-30 cells (100X) (0-5/hpf); Poikilocytosis MODERATE=16-30 cells (100X) (0-5/hpf); Stomatocytes SLIGHT = 2-5 cells (100X) (0-1/hpf)
[2020-05-31 01:07] LABS: Platelet Morphology Comment Appears Adequate
[2020-05-31] MEDS: Guaifenesin DM 100-10/5 ML UDCUP PO PRN (01:33)
[2020-05-31] MEDS ORDERED: Dextrose 50% Abboject 50 ML SYRINGE SLOW IVP PRN (01:53)
[2020-05-31] MEDS ORDERED: Insulin Regular 300 UNITS/3 ML VIAL IVP SCH (02:00)
[2020-05-31] MEDS ORDERED: Calcium Gluconate 4.6 MEQ in Sodium Chloride 0.9% 100 ML IVPB SCH (02:00)
[2020-05-31] MEDS ORDERED: Sodium Chloride 0.9% 500 ML IV SCH (02:00)
[2020-05-31] MEDS: Sodium Chloride 0.9% 1,000 ML IV SCH ×2 (02:18→05:58)
[2020-05-31] MEDS: Lorazepam 2 MG/ML VIAL SLOW IVP PRN (03:47)
[2020-05-31] MEDS: Budesonide 0.5 MG/2 ML NEB NEB SCH (07:08)
[2020-05-31] MEDS: Labetalol HCl 100 MG/20 ML VIAL SLOW IVP PRN (07:52)
[2020-05-31 07:57] LABS: Potassium 4.9 mmol/L (3.5-5.1)
[2020-05-31 08:38] LABS: Actual Bicarbonate (HCO3a) 33.1 mEq/L (22-28); Base Excess (BEa) 4.7 mEq/L (-2.0 to +3.0); CO2 Tension 78.4 mmHg (35.0-45.0); Calcium, Ionized (arterial) 1.31 mmol/L (1.12-1.30); Carboxyhemoglobin (COHb) 1.8 gm% (0.0-3.0); Hemoglobin (Hb) 8.1 g/dL (12.0-16.0); O2 Tension (PaO2), arterial 55.1 mmHg (80.0-100.0); Potassium - ABG Lab 4.8 mmol/L (3.70-5.30); Puncture Site RBA; pH, Arterial 7.24 (7.35-7.45)
[2020-05-31] MEDS: Calcium Carbonate 600 MG TAB PO SCH (09:08)
[2020-05-31] MEDS: Sildenafil Citrate 20 MG TAB PO SCH (09:08)
[2020-05-31] MEDS: Enoxaparin Sodium 40 MG/0.4 ML SYRINGE SC SCH (09:08)
[2020-05-31] MEDS: Pantoprazole 40 MG GRANULES PACKET PO SCH (09:08)
[2020-05-31 11:13] VITALS: BP 126/66; TEMP 97
== END 2020-05-31 10:20 | disposition short-term general hospital (02) | DRG 4 ==
LOC: CSHICU 10:34
PROVIDERS: ADMIT Internal Medicine; ATTEND Internal Medicine
PROC: 5A09357 Assistance with Respiratory Ventilation, Less than 24 Consecutive Hours, Continuous Positive Airway Pressure (ICD-10-PCS; 2020-04-11)
PROC: 5A1955Z Respiratory Ventilation, Greater than 96 Consecutive Hours (ICD-10-PCS; principal; 2020-04-14)
PROC: 0BH17EZ Insertion of Endotracheal Airway into Trachea, Via Natural or Artificial Opening (ICD-10-PCS; 2020-04-14)
PROC: 02HV33Z Insertion of Infusion Device into Superior Vena Cava, Percutaneous Approach (ICD-10-PCS; 2020-04-15)
PROC: B548ZZA Ultrasonography of Superior Vena Cava, Guidance (ICD-10-PCS; 2020-04-15)
PROC: 30233N1 Transfusion of Nonautologous Red Blood Cells into Peripheral Vein, Percutaneous Approach (ICD-10-PCS; 2020-05-02)
PROC: 02HV33Z Insertion of Infusion Device into Superior Vena Cava, Percutaneous Approach (ICD-10-PCS; 2020-05-21)
PROC: B548ZZA Ultrasonography of Superior Vena Cava, Guidance (ICD-10-PCS; 2020-05-21)
PROC: 0B113F4 Bypass Trachea to Cutaneous with Tracheostomy Device, Percutaneous Approach (ICD-10-PCS; 2020-05-22)
PROC: 0DH63UZ Insertion of Feeding Device into Stomach, Percutaneous Approach (ICD-10-PCS; 2020-05-22)
PROC: 5A1955Z Respiratory Ventilation, Greater than 96 Consecutive Hours (ICD-10-PCS; 2020-05-22)
DX: A41.89 Other specified sepsis (principal); U07.1 COVID-19; J12.82 Pneumonia due to coronavirus disease 2019; J80 Acute respiratory distress syndrome; R57.9 Shock, unspecified; E87.4 Mixed disorder of acid-base balance; E87.0 Hyperosmolality and hypernatremia; I16.0 Hypertensive urgency; D64.9 Anemia, unspecified; R41.82 Altered mental status, unspecified; J45.909 Unspecified asthma, uncomplicated; I10 Essential (primary) hypertension; I27.20 Pulmonary hypertension, unspecified; R53.81 Other malaise; E66.9 Obesity, unspecified; E87.6 Hypokalemia; R00.1 Bradycardia, unspecified; J98.4 Other disorders of lung; Z68.34 Body mass index [BMI] 34.0-34.9, adult; Z98.51 Tubal ligation status; Z88.0 Allergy status to penicillin
CPT/HCPCS: 36415; 36416; 36430; 36569; 36600; 71045; 71275; 80048; 80053; 80202; 82270; 82274; 82565; 82728; 82805; 83605; 83615; 83735; 84100; 84132; 84520; 85025; 85379; 85610; 85730; 86140; 86850; 86860; 86870; 86880; 86900; 86901; 86905; 86922; 86972; 87040; 87045; 87046; 87070; 87077; 87086; 87205; 87324; 87427; 87449; 93005; 93010; 93306; 94002; 94003; 94640; 94660; 94664; 94667; 94668; 94669; 94760; C1751; J0360; J0456; J0692; J0696; J1100; J1120; J1650; J1720; J1815; J1940; J2001; J2060; J2185; J2248; J2250; J2270; J2405; J2704; J2997; J3010; J3370; J3475; J3480; J3490; J7050; J7611; J7626; P9016

== ENCOUNTER 2022-03-16 12:36 | Outpatient (CLI) | payer BC | END 2022-03-16 12:37 | disposition home or self-care (01) | LOC: CSHULT 12:36 | PROVIDERS: ATTEND Internal Medicine | DX: J84.9 Interstitial pulmonary disease, unspecified (principal); I27.21 Secondary pulmonary arterial hypertension; R06.09 Other forms of dyspnea; R05.3 Chronic cough; J96.11 Chronic respiratory failure with hypoxia; Z99.81 Dependence on supplemental oxygen; J96.00 Acute respiratory failure, unspecified whether with hypoxia or hypercapnia; U07.1 COVID-19; K21.9 Gastro-esophageal reflux disease without esophagitis; I34.0 Nonrheumatic mitral (valve) insufficiency; J47.9 Bronchiectasis, uncomplicated | CPT/HCPCS: 71250; 93306; 94060; 94618; 94726; 94729 ==

== ENCOUNTER 2022-06-22 07:55 | Outpatient (CLI) | payer BC | END 2022-06-22 07:56 | disposition home or self-care (01) | LOC: CSHCP 07:55 | PROVIDERS: ATTEND Internal Medicine | DX: I27.21 Secondary pulmonary arterial hypertension (principal); I27.20 Pulmonary hypertension, unspecified; J84.9 Interstitial pulmonary disease, unspecified; K21.9 Gastro-esophageal reflux disease without esophagitis; E55.9 Vitamin D deficiency, unspecified; J96.11 Chronic respiratory failure with hypoxia; R06.09 Other forms of dyspnea; R05.3 Chronic cough; Z86.16 Personal history of COVID-19; J98.4 Other disorders of lung | CPT/HCPCS: 94060; 94618; 94726; 94729 ==